=== PATIENT | female | born 1945 | race Caucasian/White ===

== ENCOUNTER 2017-10-07 18:41 | Inpatient (IN) | payer MEDICARE ==
[2017-10-07] MEDS ORDERED: SODIUM CHLORIDE 0.9% 500 ML IV SCH (21:15)
[2017-10-07] MEDS ORDERED: methylPREDNISolone SOD SUCCI 125 MG/2 ML VIAL IV STA (21:50)
[2017-10-07] MEDS ORDERED: PIPERACILLIN-TAZOBACTAM 3.375 GM in DEXTROSE/WATER 1 50ML.BAG IVPB STA (21:50)
--- NOTE | 2017-10-07 21:50 | ED ---
General Adult HPI - General Chief complaint: Skin/Abscess/Foreign Body Stated complaint: Rash Time Seen by Provider: 10/07/17 21:03 Source: patient, RN notes reviewed Mode of arrival: wheelchair Limitations: no limitations - History of Present Illness Initial comments: Patient is a pleasant 72-year-old female presenting to the emergency department with rash. Onset was around a month ago. Patient was weeding and questioned if she may have touched poison cece however patient is not very certain of this. Patient states she did go to an urgent care and her doctor and was diagnosed with poison cece. Patient did receive a steroid injection and then a dose of oral steroids. Steroids did improve symptoms and then daily have worsened since patient has been off the steroids. No visual change. Patient states she may have a mild sore throat. Rash is not painful. Patient states rash is leaking and there is an odor. Patient states when the rash weeks it is mostly clear however she believes her has been some pus and some bleeding. No history of similar symptoms previously. No fevers. - Related Data Home Medications Medication Instructions Recorded Confirmed Hydrochlorothiazide [Hydrodiuril] 25 mg PO DAILY 06/07/15 10/07/17 Levothyroxine Sodium [Synthroid] 88 mcg PO DAILY 06/07/15 10/07/17 Lisinopril 40 mg PO DAILY 06/07/15 10/07/17 Multivitamins, Thera [Multivitamin] 1 tab PO DAILY 06/07/15 10/07/17 Simvastatin [Zocor] 20 mg PO HS 06/07/15 10/07/17 Loratadine [Claritin] 10 mg PO DAILY 10/07/17 10/07/17 Allergies Allergy/AdvReac Type Severity Reaction Status Date / Time No Known Allergies Allergy Verified 10/07/17 21:48 Review of Systems ROS Statement: Those systems with pertinent positive or pertinent negative responses have been documented in the HPI. ROS Other: All systems not noted in ROS Statement are negative. Constitutional: Denies: fever Eyes: Denies: eye pain ENT: Denies: ear pain Respiratory: Denies: cough Cardiovascular: Denies: chest pain Endocrine: Denies: fatigue Gastrointestinal: Denies: abdominal pain Genitourinary: Denies: dysuria Musculoskeletal: Denies: back pain Skin: Reports: as per HPI, rash, lesions Neurological: Denies: weakness Past Medical History Past Medical History: Hyperlipidemia, Hypertension, Thyroid Disorder History of Any Multi-Drug Resistant Organisms: None Reported Past Surgical History: Tubal Ligation Past Anesthesia/Blood Transfusion Reactions: Motion Sickness, Postoperative Nausea & Vomiting (PONV) Past Psychological History: No Psychological Hx Reported Smoking Status: Never smoker Past Alcohol Use History: None Reported Past Drug Use History: None Reported - Past Family History Mother Family Medical History: Cancer General Exam Limitations: no limitations General appearance: alert, in no apparent distress Head exam: Present: atraumatic Eye exam: Present: normal appearance, PERRL. Absent: conjunctival injection ENT exam: Present: normal oropharynx Neck exam: Present: normal inspection Respiratory exam: Present: normal lung sounds bilaterally Cardiovascular Exam: Present: regular rate, normal rhythm GI/Abdominal exam: Present: soft. Absent: tenderness Extremities exam: Present: normal inspection Back exam: Absent: tenderness Neurological exam: Present: alert Psychiatric exam: Present: normal affect, normal mood Skin exam: Present: other (Patient does have an extensive diffuse rash mostly on the trunk and proximal extremities. There are multiple bullae, most are vesicular. Some are open. Some appear somewhat hemorrhagic. Odor is present. There is some large urticarial/target type lesions on the back. Majority of the trunk and proximal extremities are erythematous.) Course Vital Signs 10/07/17 10/07/17 10/07/17 19:10 22:59 23:23 Temperature 99.2 F 99.1 F Pulse Rate 80 76 77 Respiratory 20 18 18 Rate Blood Pressure 103/69 93/48 92/49 O2 Sat by Pulse 100 98 98 Oximetry 10/08/17 00:10 Temperature Pulse Rate 83 Respiratory 18 Rate Blood Pressure 94/51 O2 Sat by Pulse 100 Oximetry - Reevaluation(s) Reevaluation #1: 10/08/17 00:15 Patient reevaluated. Patient and family updated. Case was discussed in detail with Dr. Bonilla, who will admit for Dr. Bae. Consult will be placed for infectious disease and dermatology. EKG Findings - EKG Comments: EKG Findings:: Normal sinus rhythm 75. MA 132. QRS 90. QT 378. QTC 413. Normal axis. Normal QRS. No acute ST change. Medical Decision Making - Medical Decision Making Patient does have diffuse rash without evidence of mucous membrane involvement. Rash is pruritic. No pain. Differential diagnosis is large however at this point I do favor bullous pemphigus with overlying secondary infection. Patient will need to be admitted and infectious disease will be placed on consult. Patient and family are updated regarding this. - Lab Data Result diagrams: 10/07/17 22:20 10/07/17 22:20 Lab Results 10/07/17 10/07/17 10/07/17 Range/Units 22:13 22:20 22:20 WBC 10.0 (3.8-10.6) k/uL RBC 4.74 (3.80-5.40) m/uL Hgb 13.2 (11.4-16.0) gm/dL Hct 42.7 (34.0-46.0) % MCV 90.0 (80.0-100.0) fL MCH 27.9 (25.0-35.0) pg MCHC 31.0 (31.0-37.0) g/dL RDW 13.9 (11.5-15.5) % Plt Count 383 (150-450) k/uL Neutrophils % 55 % Lymphocytes % 10 % Monocytes % 6 % Eosinophils % 27 % Basophils % 1 % Neutrophils # 5.5 (1.3-7.7) k/uL Lymphocytes # 1.0 (1.0-4.8) k/uL Monocytes # 0.6 (0-1.0) k/uL Eosinophils # 2.7 H (0-0.7) k/uL Basophils # 0.1 (0-0.2) k/uL ESR 5 (0-20) mm/hr PT 10.6 (9.0-12.0) sec INR 1.1 (<1.2) APTT 22.6 (22.0-30.0) sec Sodium (137-145) mmol/L Potassium (3.5-5.1) mmol/L Chloride (98-107) mmol/L Carbon Dioxide (22-30) mmol/L Anion Gap mmol/L BUN (7-17) mg/dL Creatinine (0.52-1.04) mg/dL Est GFR (CKD-EPI)AfAm (>60 ml/min/1.73 sqM) Est GFR (CKD-EPI)NonAf (>60 ml/min/1.73 sqM) Glucose (74-99) mg/dL Plasma Lactic Acid Bart 1.2 (0.7-2.0) mmol/L Calcium (8.4-10.2) mg/dL Total Bilirubin (0.2-1.3) mg/dL AST (14-36) U/L ALT (9-52) U/L Alkaline Phosphatase (38-126) U/L C-Reactive Protein (<10.0) mg/L Total Protein (6.3-8.2) g/dL Albumin (3.5-5.0) g/dL 10/07/17 Range/Units 22:20 WBC (3.8-10.6) k/uL RBC (3.80-5.40) m/uL Hgb (11.4-16.0) gm/dL Hct (34.0-46.0) % MCV (80.0-100.0) fL MCH (25.0-35.0) pg MCHC (31.0-37.0) g/dL RDW (11.5-15.5) % Plt Count (150-450) k/uL Neutrophils % % Lymphocytes % % Monocytes % % Eosinophils % % Basophils % % Neutrophils # (1.3-7.7) k/uL Lymphocytes # (1.0-4.8) k/uL Monocytes # (0-1.0) k/uL Eosinophils # (0-0.7) k/uL Basophils # (0-0.2) k/uL ESR (0-20) mm/hr PT (9.0-12.0) sec INR (<1.2) APTT (22.0-30.0) sec Sodium 135 L (137-145) mmol/L Potassium 4.0 (3.5-5.1) mmol/L Chloride 102 (98-107) mmol/L Carbon Dioxide 25 (22-30) mmol/L Anion Gap 8 mmol/L BUN 42 H (7-17) mg/dL Creatinine 2.00 H (0.52-1.04) mg/dL Est GFR (CKD-EPI)AfAm 28 (>60 ml/min/1.73 sqM) Est GFR (CKD-EPI)NonAf 24 (>60 ml/min/1.73 sqM) Glucose 109 H (74-99) mg/dL Plasma Lactic Acid Bart (0.7-2.0) mmol/L Calcium 8.6 (8.4-10.2) mg/dL Total Bilirubin 0.4 (0.2-1.3) mg/dL AST 20 (14-36) U/L ALT 35 (9-52) U/L Alkaline Phosphatase 45 (38-126) U/L C-Reactive Protein 59.6 H (<10.0) mg/L Total Protein 5.3 L (6.3-8.2) g/dL Albumin 2.8 L (3.5-5.0) g/dL Disposition Clinical Impression: Cellulitis, Bullous pemphigus Disposition: ADMITTED IP TO THIS [facility] Referrals: Anne Bae III, MD [Primary Care Provider] - 1-2 days Decision Time: 00:16
[2017-10-07 22:33] LABS: Basophils # (A) 0.1 k/uL (0-0.2); Basophils % (A) 1 %; Eosinophils # (A) 2.7 k/uL (0-0.7); Eosinophils % (A) 27 %; HCT 42.7 % (34.0-46.0); HGB 13.2 gm/dL (11.4-16.0); Lymphocytes % (A) 10 %; MCH 27.9 pg (25.0-35.0); Mean Platelet Volume 6.6; Monocytes # (A) 0.6 k/uL (0-1.0); Monocytes % (A) 6 %; Neutrophils # (A) 5.5 k/uL (1.3-7.7); Neutrophils % (A) 55 %; Platelet Count 383 k/uL (150-450); RBC 4.74 m/uL (3.80-5.40); RDW 13.9 % (11.5-15.5)
[2017-10-07 22:39] LABS: INR 1.1 (<1.2); Partial Thromboplastin Time 22.6 sec (22.0-30.0); Prothrombin Time 10.6 sec (9.0-12.0)
[2017-10-07 22:47] LABS: Albumin 2.8 g/dL (3.5-5.0); C Reactive Protein 59.6 mg/L (<10.0); Calcium 8.6 mg/dL (8.4-10.2); Total Bilirubin 0.4 mg/dL (0.2-1.3); Total Protein 5.3 g/dL (6.3-8.2)
[2017-10-07 23:24] LABS: Erythrocyte Sedimentation Rate 5 mm/hr (0-20)
[2017-10-07] MEDS ORDERED: SODIUM CHLORIDE 0.9% 500 ML IV STA (23:28)
[2017-10-08] MEDS ORDERED: NALOXONE 0.4 MG/ML 1 ML VIAL IV PRN (00:16)
[2017-10-08] MEDS: SODIUM CHLORIDE 0.9% 1,000 ML IV SCH ×3 (00:40→15:46)
[2017-10-08] MEDS: methylPREDNISolone SOD SUCCI 125 MG/2 ML VIAL IV SCH ×2 (00:41→06:55)
[2017-10-08] MEDS ORDERED: SODIUM CHLORIDE 0.9% 1,000 ML IV STA (00:49)
[2017-10-08] MEDS ORDERED: PIPERACILLIN-TAZOBACTAM 3.375 GM in DEXTROSE/WATER 1 50ML.BAG IVPB SCH (08:00)
[2017-10-08] MEDS ORDERED: FAMOTIDINE 20 MG TAB PO SCH (09:00)
[2017-10-08] MEDS ORDERED: ceFAZolin 1,000 MG in DEXTROSE/WATER 1 50ML.BAG IVPB ONE (12:00)
--- NOTE | 2017-10-08 15:24 | P.HPIM ---
History of Present Illness 68-year-old up as an female came in with the diffuse rash involving chest abdomen bilateral upper limbs predominantly. Patient had diffuse areas of redness consistent with ALLERGIC reaction and some bullous lesions. Patient's symptoms started around August and believed to have patch poison cece and patient was treated accordingly with the systemic steroids by the urgent care physician and her redness and rash did improve but patient started having these bullous lesions because of which has skin started peeling of because of the pain patient is unable to go to the bathroom and patient came to ER. Patient has multiple areas of redness consistent with ALLERGIC reaction along with multiple areas of bullous lesions with some skin breakdown and some areas. Patient denied nausea vomiting diarrhea. Patient blood pressure is low patient is on lisinopril and the hydrochlorothiazide with worsening creatinine from her baseline of 0.8-2. Patient was started on IV fluids will be admitted will use ceftezole and although there is no clear-cut evidence of cellulitis at this point of time patient systemic steroids will be cut down to 20 mg by mouth daily. Dermatology was Will be consulted patient will need a biopsy. The main reason for admission is mostly acute renal failure. Infectious disease will be consulted as well Review of Systems REVIEW OF SYSTEMS: CONSTITUTIONAL: No fever, no malaise, no fatigue. HEENT: No recent visual problems or hearing problems. Denied any sore throat. CARDIOVASCULAR: No chest pain, orthopnea, PND, no palpitations, no syncope. PULMONARY: No shortness of breath, no cough, no hemoptysis. GASTROINTESTINAL: No diarrhea, no nausea, no vomiting, no abdominal pain. Normoactive bowel sounds. NEUROLOGICAL: No headaches, no weakness, no numbness. HEMATOLOGICAL: Denies any bleeding or petechiae. GENITOURINARY: Denies any burning micturition, frequency, or urgency. MUSCULOSKELETAL/RHEUMATOLOGICAL: Denies any joint pain, swelling, or any muscle pain. ENDOCRINE: Denies any polyuria or polydipsia. The rest of the 14-point review of systems is negative. Past Medical History Past Medical History: Hyperlipidemia, Hypertension, Thyroid Disorder Additional Past Medical History / Comment(s): Hypothyroid, diverticular disease , benign colon polyps, bilateral tinnitis, bilateral varicosities per pt. History of Any Multi-Drug Resistant Organisms: None Reported Past Surgical History: Section, Tubal Ligation Additional Past Surgical History / Comment(s): Colonoscopies/benign polypectomies. Past Anesthesia/Blood Transfusion Reactions: Motion Sickness, Postoperative Nausea & Vomiting (PONV) Smoking Status: Never smoker - Past Family History Mother Family Medical History: Cancer Additional Family Medical History / Comment(s): Mother had skin and esophageal cancer. She at the age of 86yrs. Father Additional Family Medical History / Comment(s): Father had bradycardia and of bradycardia/leg edema at the age of 84yrs. Medications and Allergies Home Medications Medication Instructions Recorded Confirmed Type Hydrochlorothiazide [Hydrodiuril] 25 mg PO DAILY 06/07/15 10/07/17 History Levothyroxine Sodium [Synthroid] 88 mcg PO DAILY 06/07/15 10/07/17 History Lisinopril 40 mg PO DAILY 06/07/15 10/07/17 History Multivitamins, Thera [Multivitamin] 1 tab PO DAILY 06/07/15 10/07/17 History Simvastatin [Zocor] 20 mg PO HS 06/07/15 10/07/17 History Loratadine [Claritin] 10 mg PO DAILY 10/07/17 10/07/17 History Allergies Allergy/AdvReac Type Severity Reaction Status Date / Time No Known Allergies Allergy Verified 10/07/17 21:48 Physical Exam Vitals: Vital Signs Temp Pulse Resp BP Pulse Ox 10/08/17 13:32 98.9 F 87 20 110/51 97 10/08/17 09:50 75 16 104/50 98 10/08/17 09:40 99.5 F 75 18 104/50 97 10/08/17 07:14 98.2 F 86 18 123/56 98 10/08/17 06:04 17 10/08/17 05:00 17 10/08/17 03:18 18 10/08/17 01:40 82 18 93/51 100 10/08/17 01:04 78 18 92/47 96 10/08/17 00:10 83 18 94/51 100 10/07/17 23:23 99.1 F 77 18 92/49 98 10/07/17 22:59 76 18 93/48 98 10/07/17 19:10 99.2 F 80 20 103/69 100 PHYSICAL EXAMINATION: GENERAL: The patient is alert and oriented x3, not in any acute distress. Well developed, well nourished. HEENT: Pupils are round and equally reacting to light. EOMI. No scleral icterus. No conjunctival pallor. Normocephalic, atraumatic. No pharyngeal erythema. No thyromegaly. CARDIOVASCULAR: S1 and S2 present. No murmurs, rubs, or gallops. PULMONARY: Chest is clear to auscultation, no wheezing or crackles. ABDOMEN: Soft, nontender, nondistended, normoactive bowel sounds. No palpable organomegaly. MUSCULOSKELETAL: No joint swelling or deformity. EXTREMITIES: No cyanosis, clubbing, or pedal edema. NEUROLOGICAL: Gross neurological examination did not reveal any focal deficits. SKIN: As mentioned above Results CBC & Chem 7: 10/07/17 22:20 10/07/17 22:20 Labs: Abnormal Lab Results - Last 24 Hours (Table) 10/07/17 10/07/17 Range/Units 22:20 22:20 Eosinophils # 2.7 H (0-0.7) k/uL Sodium 135 L (137-145) mmol/L BUN 42 H (7-17) mg/dL Creatinine 2.00 H (0.52-1.04) mg/dL Glucose 109 H (74-99) mg/dL C-Reactive Protein 59.6 H (<10.0) mg/L Total Protein 5.3 L (6.3-8.2) g/dL Albumin 2.8 L (3.5-5.0) g/dL Thrombosis Risk Factor Assmnt - Choose All That Apply Any of the Below Risk Factors Present?: Yes Each Factor Represents 1 point: Obesity (BMI >25), Varicose veins Other Risk Factors: No Other congenital or acquired thrombophilia - If yes, enter type in comment: No Thrombosis Risk Factor Assessment Total Risk Factor Score: 2 Thrombosis Risk Factor Assessment Level: Low Risk Assessment and Plan Plan: -Acute renal failure: Probably secondary to hypotension and antiemesis medications my suspicion is low that patient is dehydrated because of her skin breakdown and her bullous lesion breakdown patient was started on IV fluids to recheck the kidney function tomorrow. -Bullous lesions and redness: I do not believe patient has cellulitis patient appears to have either ALLERGIC reaction to poison cece and toxic epidermal neck lysis cannot be ruled out, bullous pemphigus cannot be ruled out either. Patient will be continued on systemic steroids prophylactically patient will be started on ceftezole and will get the opinion from dermatology and infectious disease as well. -Hyperlipidemia -Obesity -Hypertension: Patient is actually hypotensive as mentioned above -Hypothyroidism continue with levofloxacin
[2017-10-08] MEDS: ATORVASTATIN 10 MG TAB PO SCH (21:46)
[2017-10-08] MEDS: predniSONE 20 MG TAB PO SCH (21:46)
[2017-10-08] MEDS: ceFAZolin 500 MG in DEXTROSE/WATER 1 50ML.BAG IVPB SCH (22:55)
[2017-10-09] MEDS: SODIUM CHLORIDE 0.9% 1,000 ML IV SCH ×3 (03:20→17:47)
--- NOTE | 2017-10-09 08:12 | CONS ---
CONSULTATION DATE OF SERVICE: 10/08/2017. REASON FOR CONSULTATION: A bolus of skin lesion and cellulitis. HISTORY OF PRESENT ILLNESS: The patient is a 72-year-old female who has been dealing with skin rash been going on for a few weeks now. The patient says that it may have started after she was weeding in her backyard. Subsequently has been diagnosed with poison cece and has been treated in the outpatient setting with 2 different courses of steroids and the medication. However the patient continued to have a lesion mostly on the upper and lower abdomen as well as the arm with some superficial ulceration from of this bulla. The patient has been complaining of at times itching and as well as pain. The pain is more of a sharp in nature with intensity about 5 to 6/10, and no radiation. With these symptoms, the patient presented to the [facility] ER. The patient has been evaluated by the ER physician. She has been diagnosed with bullous condition with cellulitis. She was started on Cefazolin and admitted to the hospital. Infectious Disease was consulted for further recommendations regarding antibiotic therapy. The patient did not recall if she has started any new medication in the recent past. The patient denies having any new soaps or linens. The denies having any difficulty in breathing. No oral lesion. No urinary symptoms and no diarrhea. REVIEW OF SYSTEMS: Constitutional: Positive for weakness but no high-grade fever. Eyes: No complaint. ENT no complaint. Respiratory no complaint. Cardiovascular no complaint. Genitourinary no complaint. Gastrointestinal: No complaint. Musculoskeletal no complaint. INTEGUMENTARY: As per HPI. Psychological no complaint. Endocrine no complaint. Neurologic no complaint. PAST MEDICAL HISTORY: Hypertension, hyperlipidemia, hypothyroidism, diverticular disease and colon polyp, bilateral tinnitus. PAST SURGICAL HISTORY: History of and tubal ligation, colonoscopy, polypectomy. SOCIAL HISTORY: No history of smoking, drinking, or drug use. Mother with history of esophageal cancer. Father of bradyarrhythmia. ALLERGIES: No known drug allergies. MEDICATION: Currently include the patient is on Lipitor, cefazolin 2 g q.12h, Pepcid, levothyroxine, Narcan, prednisone. EXAMINATION: Blood pressure is 154/68 with a pulse of 89, temperature 97.4, she is 98% on room air. General description is an elderly female, lying in bed in no distress. No tachypnea or accessory muscles of respiration use. HEENT: Shows no pallor or scleral icterus. Oral mucosa membranes dry. No pharyngeal erythema or any or oral ulcers. Neck trachea central. No thyromegaly. LUNGS: Unlabored breathing. Clear to auscultation. No wheeze or crackles. Heart S1, S2. Regular rate and rhythm. ABDOMEN: Soft. No tenderness. No guarding or rigidity. Extremities: No edema of the feet. Skin examination: Multiple blisters and superficial ulcerations and surrounding cellulitis. No purulence. Neurological: The patient is awake, alert, oriented times three. Mood and affect normal. LABS: Hemoglobin 13.2, white count 10.0 with a BUN of 42, creatinine 2.0. CRP was 59.6. Blood cultures obtained currently pending. DIAGNOSTIC IMPRESSION AND PLAN: Patient with diffuse bullous skin lesion with some secondary redness with concern for possible poison cece. However, the diffuse nature of this lesion underlying primary skin condition such as bullous needs to be ruled out. The lack of fever or elevated white count, making underlying infection to be less likely but not entirely excluded. The patient with no history of any recent new medication or perfumes or lotions. PLAN: 1. Await Dermatology evaluation. The patient likely needs steroids in high doses and possible local care with . 2. Will continue with cefazolin 2 g q.8 hours to further condition to stabilize. 3. We will follow up on clinical condition and culture to further adjust medication if needed. Thank you for this consultation. Will follow this patient along with you. MMODL / IJN: [id number] /
[2017-10-09] MEDS: FAMOTIDINE 20 MG TAB PO SCH (08:25)
[2017-10-09] MEDS: LEVOTHYROXINE 88 MCG TAB PO SCH (08:25)
[2017-10-09] MEDS: predniSONE 20 MG TAB PO SCH (08:25)
[2017-10-09] MEDS: ceFAZolin 500 MG in DEXTROSE/WATER 1 50ML.BAG IVPB SCH ×2 (08:25→21:11)
[2017-10-09] MEDS ORDERED: diphenhydrAMINE 25 MG CAP PO PRN (10:14)
[2017-10-09] MEDS ORDERED: ACETAMINOPHEN TAB 325 MG TAB PO PRN (10:15)
[2017-10-09 11:56] LABS: Potassium 4.8 mmol/L (3.5-5.1)
[2017-10-09 12:52] LABS: Basophils % (A) 0 %; Eosinophils # (A) 0.9 k/uL (0-0.7); Eosinophils % (A) 11 %; HCT 40.7 % (34.0-46.0); HGB 13.2 gm/dL (11.4-16.0); Lymphocytes # (A) 0.7 k/uL (1.0-4.8); Lymphocytes % (A) 8 %; MCH 28.9 pg (25.0-35.0); MCHC 32.3 g/dL (31.0-37.0); MCV 89.3 fL (80.0-100.0); Mean Platelet Volume 8.4; Monocytes # (A) 0.7 k/uL (0-1.0); Monocytes % (A) 8 %; Neutrophils # (A) 6.3 k/uL (1.3-7.7); Neutrophils % (A) 72 %; Platelet Count 291 k/uL (150-450); RBC 4.56 m/uL (3.80-5.40); RDW 14.2 % (11.5-15.5); WBC 8.8 k/uL (3.8-10.6)
--- NOTE | 2017-10-09 20:06 | CONS ---
CONSULTATION DATE OF CONSULTATION: 10/09/2017 REASON FOR CONSULTATION: Blistering rash and secondary cellulitis. HISTORY OF PRESENT ILLNESS: The patient is a 72-year-old female who is being evaluated for a skin rash that started about 3 weeks ago after she was working out in the yard. She attributes the rash to poison cece. She states she went to the Urgent Care, where she was treated with an oral prednisone taper starting at 60 mg, and a steroid injection. She states initially the rash improved after treatment, and then it got much worse. She said after the rash got worse she could not stand it, so she came into the hospital for treatment. She was treated with IV antibiotics and IV steroids and states the rash is feeling better. She is currently on prednisone 20 mg twice daily. REVIEW OF SYSTEMS: INTEGUMENTARY: See HPI. All others noncontributory. PAST MEDICAL HISTORY: 1. Hypertension. 2. Hyperlipidemia. 3. Hypothyroid. 4. Diverticular disease. 5. Tinnitus. PAST SURGICAL HISTORY: 1. . 2. Tubal ligation. 3. Colonoscopy. SOCIAL HISTORY: Denies smoking. Denies alcohol use. Denies illicit drug use. ALLERGIES: NO KNOWN DRUG ALLERGIES. MEDICATIONS: See MAR. PHYSICAL EXAMINATION: Patient is currently in no distress. She is oriented to person, place and time. SKIN: Erythematous patches and bullae located on the trunk and extremities. LABS: Blood culture negative after 24 hours. IMPRESSION: Bullous Pemphigoid versus Pemphigus Vulgaris versus Erythema Multiforme versus Contact Dermatitis. PLAN: 1. Start prednisone taper 80 mg p.o. for 5 days, then 60 mg p.o. for 7 days, then 50 mg p.o. for 7 days, then 40 mg p.o. for 7 days, then 30 mg p.o. for 7 days, then 20 mg p.o. for 7 days, then 10 mg p.o. for 7 days. 2. Start betamethasone dipropionate topical ointment. Apply to affected areas on trunk and extremities twice daily. 3. Order labs: BP230 and 180, Desmoglein 1 and 3. 4. Follow up after discharge at [facility]. Thank you very much for the consultation. MMODL / IJN: [id number] / ALIREZA
[2017-10-09] MEDS: BETAMETHASONE DIPROPIONATE 0.05% OINTMENT 45 GM TUBE TOPICAL SCH (21:10)
[2017-10-09] MEDS: ATORVASTATIN 10 MG TAB PO SCH (21:11)
--- NOTE | 2017-10-09 23:12 | PN ---
PROGRESS NOTE DATE OF SERVICE: 10/09/2017. REASON FOR FOLLOWUP: Skin rash with secondary cellulitis. INTERVAL HISTORY: The patient is currently afebrile and she is breathing comfortably. Slight decrease in her pain associated with the rash area. No chest pain. No shortness of breath or cough. No abdominal pain or any diarrhea. EXAMINATION: Blood pressure 168/72 with a pulse of 74, temperature 97.5. She is 100% on room air. General description is an elderly female lying in bed in no distress. Respiratory System: Unlabored breathing. Clear to auscultation anteriorly. HEART: S1, S2. Regular rate and rhythm. ABDOMEN: Soft. No tenderness. SKIN: No rash with bullae present. Redness may have slightly decreased on the trunk. LABS: Hemoglobin is 13, white count of 8.8. BUN of 25, creatinine 0.94. DIAGNOSTIC IMPRESSION AND PLAN: Patient with bullous , concern for possible bullous pemphigoid or with possible secondary cellulitis. In view of improvement in her creatinine clearance, we will adjust the cefazolin to 2 g every 8 hours. She has been seen by Dermatology and has been started on steroids. We will continue to monitor the patient closely. Continue with supportive care. MMODL / IJN: [id number] /
[2017-10-10] MEDS ORDERED: ceFAZolin 2,000 MG in DEXTROSE/WATER 1 50ML.BAG IVPB SCH
[2017-10-10] MEDS: ceFAZolin IN SWFI 2 GM/20 ML SYRINGE IVP SCH ×2 (00:21→08:17)
[2017-10-10] MEDS: SODIUM CHLORIDE 0.9% 1,000 ML IV SCH ×2 (05:38→12:49)
[2017-10-10] MEDS: LEVOTHYROXINE 88 MCG TAB PO SCH (08:17)
[2017-10-10] MEDS: FAMOTIDINE 20 MG TAB PO SCH (08:17)
[2017-10-10 08:42] LABS: Potassium 4.5 mmol/L (3.5-5.1)
[2017-10-10] MEDS ORDERED: predniSONE 20 MG TAB PO SCH (09:00)
[2017-10-10] MEDS: BETAMETHASONE DIPROPIONATE 0.05% OINTMENT 45 GM TUBE TOPICAL SCH (12:56)
[2017-10-10 16:36] VITALS: BP 182/75; PULSE 83; RESP 18; TEMP 96.8
--- NOTE | 2017-10-10 17:10 | PN ---
PROGRESS NOTE DATE OF SERVICE: 10/10/2017. REASON FOR FOLLOW UP: Multiple skin ulcerations with possible secondary cellulitis. INTERVAL HISTORY: The patient is currently afebrile. She is breathing comfortably. Denies any chest pain or any cough. No abdominal pain. The skin has slightly decreased in intensity and less painful. EXAMINATION: Blood pressure 149/76, pulse of 86. Temperature is 97.1. She is 99% on room air. General description is an elderly female, lying in bed in no distress. RESPIRATORY SYSTEM: Unlabored breathing. Clear to auscultation anteriorly. HEART: S1, S2. Regular rate and rhythm. ABDOMEN: Soft, no tenderness. SKIN EXAMINATION: Multiple skin ulcerations. Redness has decreased. No purulence. LABS: White count 8.2, BUN of 20, creatinine 0.85. DIAGNOSTIC IMPRESSION AND PLAN: Patient with multiple skin blisters, concern for possibly . She was started on steroids per Dermatology and will benefit from a biopsy in outpatient setting. For cellulitis she can be transitioned to oral Keflex on discharge. Continue supportive care. MMODL / IJN: [id number] /
--- NOTE | 2017-10-10 18:32 | P.DS ---
Providers Date of admission: 10/08/17 00:16 Expected date of discharge: 10/10/17 Attending physician: Mimi Rossi Consults: 10/08/17 00:17 Consult Physician Urgent Consulting Provider: Robert More Consult Reason/Comments: Bolus disease with secondary cellulitis versus other Do you want consulting provider notified?: Yes Consult Physician Urgent Consulting Provider: Jim Moran Consult Reason/Comments: Bolus disease with secondary cellulitis Do you want consulting provider notified?: Yes Primary care physician: Anne Bond [facility] Course: Final Diagnoses: -Acute renal failure: Probably secondary to hypotension and antiemesis medications my suspicion is low that patient is dehydrated. Improved -Bullous lesions and redness: Possible cellulitis, patient appears to have either ALLERGIC reaction to poison cece and toxic epidermal neck lysis cannot be ruled out, bullous pemphigus cannot be ruled out either. -Hyperlipidemia -Obesity -Hypertension -Hypothyroidism Hospital course:68-year-old up as an female came in with the diffuse rash involving chest abdomen bilateral upper limbs predominantly. Patient had diffuse areas of redness consistent with ALLERGIC reaction and some bullous lesions. Patient's symptoms started around August and believed to have patch poison cece and patient was treated accordingly with the systemic steroids by the urgent care physician and her redness and rash did improve but patient started having these bullous lesions because of which has skin started peeling of because of the pain patient is unable to go to the bathroom and patient came to ER. Patient has multiple areas of redness consistent with ALLERGIC reaction along with multiple areas of bullous lesions with some skin breakdown and some areas. Patient denied nausea vomiting diarrhea. Patient blood pressure is low patient is on lisinopril and the hydrochlorothiazide with worsening creatinine from her baseline of 0.8-2. Patient was started on IV fluids will be admitted will use ceftezole and although there is no clear-cut evidence of cellulitis at this point of time patient systemic steroids will be cut down to 20 mg by mouth daily. Dermatology was Will be consulted patient will need a biopsy. The main reason for admission is mostly acute renal failure. Infectious disease will be consulted as well Evaluated by both infectious disease and dermatology. Maintained on steroids , IV antibiotics, IV fluid. Significant clinical improvement. Patient has been cleared for discharge by consults. Patient is being discharged home in a stable condition with guarded prognosis. Outpatient biopsy with Dermatology. GENERAL: The patient is alert and oriented x3, not in any acute distress. CARDIOVASCULAR: S1 and S2 present. No murmurs, rubs, or gallops. PULMONARY: Chest is clear to auscultation, no wheezing or crackles. ABDOMEN: Soft, nontender, nondistended, normoactive bowel sounds. No palpable organomegaly. EXTREMITIES: No cyanosis, clubbing, or pedal edema. NEUROLOGICAL: Gross neurological examination did not reveal any focal deficits. SKIN: As mentioned above, significantly improved The impression and plan of care has been dictated as directed. : I performed a history and examination of this patient, discussed the same with the dictator. I agree with the dictator's note ,documented as a scribe. Any additional findings or plans will be noted. Time taken: 35 minutes Patient Condition at Discharge: Stable Plan - Discharge Summary Discharge Rx Participant: No New Discharge Prescriptions: New Cephalexin [Keflex] 500 mg PO TID #21 cap Acetaminophen Tab [Tylenol] 650 mg PO Q6HR PRN tab PRN Reason: Fever and/ or Mild Pain Famotidine [Pepcid] 20 mg PO DAILY tab Betamethasone Dipropionate [Diprolene 0.05% Ointment] 1 applic TOPICAL BID # 2 tube Continue Multivitamins, Thera [Multivitamin (formulary)] 1 tab PO DAILY Simvastatin [Zocor] 20 mg PO HS Lisinopril 40 mg PO DAILY Hydrochlorothiazide [Hydrodiuril] 25 mg PO DAILY Levothyroxine Sodium [Synthroid] 88 mcg PO DAILY Loratadine [Claritin] 10 mg PO DAILY diphenhydrAMINE [Benadryl] 50 mg PO HS Ibuprofen 200 mg PO BID PRN PRN Reason: Pain Discharge Medication List Hydrochlorothiazide [Hydrodiuril] 25 mg PO DAILY 06/07/15 [History] Levothyroxine Sodium [Synthroid] 88 mcg PO DAILY 06/07/15 [History] Lisinopril 40 mg PO DAILY 06/07/15 [History] Multivitamins, Thera [Multivitamin (formulary)] 1 tab PO DAILY 06/07/15 [History ] Simvastatin [Zocor] 20 mg PO HS 06/07/15 [History] Loratadine [Claritin] 10 mg PO DAILY 10/07/17 [History] Ibuprofen 200 mg PO BID PRN 10/09/17 [History] diphenhydrAMINE [Benadryl] 50 mg PO HS 10/09/17 [History] Acetaminophen Tab [Tylenol] 650 mg PO Q6HR PRN tab 10/10/17 [Rx] Betamethasone Dipropionate [Diprolene 0.05% Ointment] 1 applic TOPICAL BID #2 tube 10/10/17 [Rx] Cephalexin [Keflex] 500 mg PO TID #21 cap 10/10/17 [Rx] Famotidine [Pepcid] 20 mg PO DAILY tab 10/10/17 [Rx] Follow up Appointment(s)/Referral(s): Araceli More MD [STAFF PHYSICIAN] - 1 Week Anne Bae III, MD [Primary Care Provider] - 10/14/17 5:30 pm Jim Moran MD [STAFF PHYSICIAN] - 1 Week Patient Instructions/Handouts: Cellulitis (DC) Activity/Diet/Wound Care/Special Instructions: manual prescription for prednisone taper: 80 mg by mouth daily 5 days, then 60 mg by mouth daily 7 days then 50 mg by mouth daily 7 days then 40 mg by mouth daily 7 days then 30 mg by mouth daily 7 days then 20 mg by mouth daily 7 days then 10 mg by mouth daily 7 days then DC Discharge Disposition: HOME SELF-CARE
[2017-10-14 16:50] LABS: Desmoglein 1 0.96 U (<14.0); Desmoglein 3 0.83 U (<9.0)
== END 2017-10-10 18:08 | disposition home or self-care (01) | DRG 683 ==
LOC: EC 18:41 → 4MS4W 10-08 00:16
PROVIDERS: ADMIT Hospitalist; ATTEND Hospitalist
DX: N17.9 Acute kidney failure, unspecified (principal); L10.9 Pemphigus, unspecified; L27.0 Generalized skin eruption due to drugs and medicaments taken internally; T45.0X5A Adverse effect of antiallergic and antiemetic drugs, initial encounter; I95.9 Hypotension, unspecified; E86.0 Dehydration; Z80.0 Family history of malignant neoplasm of digestive organs; E78.5 Hyperlipidemia, unspecified; I10 Essential (primary) hypertension; E03.9 Hypothyroidism, unspecified; K57.90 Diverticulosis of intestine, part unspecified, without perforation or abscess without bleeding; H93.19 Tinnitus, unspecified ear; Z79.84 Long term (current) use of oral hypoglycemic drugs; Z79.890 Hormone replacement therapy; Z79.899 Other long term (current) drug therapy; Z79.52 Long term (current) use of systemic steroids; Z86.010 Personal history of colon polyps; E66.9 Obesity, unspecified; Z68.25 Body mass index [BMI] 25.0-25.9, adult
CPT/HCPCS: 36415; 80048; 80053; 83516; 83605; 85025; 85610; 85652; 85730; 86140; 87040; 93005; 96361; 96365; 96366; 96367; 96375; 96376; 99284

== ENCOUNTER → 2019-10-02 | Outpatient (CLI) | payer MEDICARE ==
--- NOTE | 2019-10-05 09:01 | CT ---
EXAMINATION TYPE: CT angio neck DATE OF EXAM: 10/02/2019 HISTORY: Carotid stenosis. COMPARISON: NONE CT DLP: 290.5 mGycm. Automated Exposure Control for Dose Reduction was Utilized. TECHNIQUE: CTA scan of the neck is performed without and with IV Contrast, patient injected with 65m l mL of Isovue 370, axial images are obtained, coronal and sagittal reformatted images are reviewed. Three-D reconstructed images are created on an independent workstation and reviewed. FINDINGS: Carotid/Vascular Structures: Bovine type arch which is normal variant. Right common carotid artery sh ows normal origin from right brachiocephalic artery. Some tortuous course to the right common carotid artery without significant plaque or stenosis. Mild to moderate calcified plaque in right carotid bu lb extends into proximal internal carotid artery without significant stenosis. External carotid arter y patent without significant stenosis. Left common carotid artery shows tortuous course without significant plaque or stenosis. There is mod erate to severe mixed plaque in left carotid bulb becoming more severe predominantly noncalcified joseline que in the proximal internal carotid artery over a roughly 1.5 cm segment. Significant stenosis is pr esent. Lumen diameter is narrowed to 1.6 mm and reconstitutes to 7.3 mm superior to this. There is pa tent external carotid artery without significant plaque or stenosis. Mild to moderate calcified plaque supraclinoid segment bilateral distal internal carotid arteries wit hout significant stenosis. Dominant right vertebral artery. Vertebral arteries are patent to the basi lar junction. Other: There are a few scattered prominent but subcentimeter lymph nodes throughout the neck bilatera lly. No definitive greater than 1 cm neck adenopathy. Somewhat smaller hypoplastic thyroid gland noted axial image 35. Correlate clinically. Slight levoconvex scoliotic curvature positioning centered near cervicothoracic junction. Spine is st raightened on sagittal images. Moderate multilevel spurring and disc space narrowing greatest C5-C6 a nd C6-C7 levels. IMPRESSION: Confirmation of fairly significant long segment (1.5 cm) stenosis proximal left internal carotid artery due to prominent predominantly noncalcified plaque, degree of stenosis is measured jus t under 80%.
== END | disposition home or self-care (01) ==
LOC: RADCTMAIN 15:03
PROVIDERS: ATTEND Surgery
DX: I65.22 Occlusion and stenosis of left carotid artery (principal)
CPT/HCPCS: 82565; 84520; 70498; 36415; Q9967

== ENCOUNTER 2020-05-27 14:17 | Observation (INO) | payer MEDICARE ==
[2020-05-27 15:40] LABS: Basophils % (A) 1 %; Eosinophils % (A) 0 %; HCT 40.3 % (34.0-46.0); HGB 13.7 gm/dL (11.4-16.0); Lymphocytes # (A) 0.4 k/uL (1.0-4.8); Lymphocytes % (A) 9 %; MCH 29.6 pg (25.0-35.0); MCHC 34.1 g/dL (31.0-37.0); MCV 86.6 fL (80.0-100.0); Mean Platelet Volume 7.3; Monocytes # (A) 0.4 k/uL (0-1.0); Monocytes % (A) 9 %; Neutrophils # (A) 3.9 k/uL (1.3-7.7); Neutrophils % (A) 80 %; Platelet Count 381 k/uL (150-450); RBC 4.65 m/uL (3.80-5.40); RDW 13.1 % (11.5-15.5); WBC 4.9 k/uL (3.8-10.6)
[2020-05-27 15:49] LABS: Albumin 3.8 g/dL (3.5-5.0); Calcium 9.1 mg/dL (8.4-10.2); Magnesium 1.8 mg/dL (1.6-2.3); Potassium 4.1 mmol/L (3.5-5.1); Total Bilirubin 0.6 mg/dL (0.2-1.3); Total Protein 6.8 g/dL (6.3-8.2)
[2020-05-27 15:55] LABS: Partial Thromboplastin Time 24.1 sec (22.0-30.0); Prothrombin Time 10.8 sec (9.0-12.0)
--- NOTE | 2020-05-27 15:59 | XR ---
EXAMINATION TYPE: XR chest 2V DATE OF EXAM: 05/27/2020 COMPARISON: NONE TECHNIQUE: PA and lateral views submitted. HISTORY: Weakness FINDINGS: Coarsened interstitium with a basilar subsegmental consolidation. Heart enlarged. No pneumothorax. At herosclerotic change aorta. Tiny pleural effusions not excluded. IMPRESSION: 1. Correlate for interstitial pneumonitis versus mild venous congestion. 2. Cardiomegaly
[2020-05-27] MEDS ORDERED: SODIUM CHLORIDE 0.9% 1,000 ML IV STA (16:57)
--- NOTE | 2020-05-27 17:03 | ED ---
Weakness HPI - General Chief complaint: Weakness Stated complaint: dizziness,weakness,loss of appetite. Time Seen by Provider: 05/27/20 14:54 Source: patient Mode of arrival: wheelchair Limitations: no limitations - History of Present Illness Initial comments: Patient complains of generalized weakness and lethargy. Her symptoms have been getting worse for couple weeks. Nothing makes this better or worse. She has taken no medicines for this. She was switched to a new blood pressure medication 3 weeks ago, which seems to of precipitated her decline. She has no pain or swelling in the arms or legs. She has no palpitations. She has had no loss of conscious. She has no headache. She has no vision or hearing changes. She denies sick contacts. She has not traveled anywhere. - Related Data Home Medications Medication Instructions Recorded Confirmed Levothyroxine Sodium [Synthroid] 88 mcg PO DAILY 06/07/15 05/27/20 Simvastatin [Zocor] 20 mg PO HS 06/07/15 05/27/20 lisinopriL 40 mg PO DAILY 06/07/15 05/27/20 Biotin 10,000 mcg PO DAILY 05/27/20 05/27/20 Doxycycline Hyclate 100 mg PO BID 05/27/20 05/27/20 Hydrochlorothiazide 12.5 mg PO DAILY 05/27/20 05/27/20 [hydroCHLOROthiazide] Niacinamide 500 mg PO DAILY 05/27/20 05/27/20 Previous Rx's Medication Instructions Recorded Acetaminophen Tab [Tylenol] 650 mg PO Q6HR PRN tab 10/10/17 Allergies Allergy/AdvReac Type Severity Reaction Status Date / Time No Known Allergies Allergy Verified 05/27/20 16:50 Review of Systems ROS Statement: Those systems with pertinent positive or pertinent negative responses have been documented in the HPI. ROS Other: All systems not noted in ROS Statement are negative. Past Medical History Past Medical History: Hyperlipidemia, Hypertension, Thyroid Disorder Additional Past Medical History / Comment(s): Hypothyroid, diverticular disease, benign colon polyps, bilateral tinnitis, bilateral varicosities per pt. History of Any Multi-Drug Resistant Organisms: None Reported Past Surgical History: Section, Tubal Ligation Additional Past Surgical History / Comment(s): Colonoscopies/benign polypectomies. Past Anesthesia/Blood Transfusion Reactions: Motion Sickness, Postoperative Nausea & Vomiting (PONV) Past Psychological History: No Psychological Hx Reported Smoking Status: Never smoker Past Alcohol Use History: None Reported Past Drug Use History: None Reported - Past Family History Mother Family Medical History: Cancer Additional Family Medical History / Comment(s): Mother had skin and esophageal cancer. She at the age of 86yrs. Father Additional Family Medical History / Comment(s): Father had bradycardia and of bradycardia/leg edema at the age of 84yrs. General Exam Limitations: no limitations General appearance: alert, in no apparent distress Head exam: Present: atraumatic, normocephalic, normal inspection Eye exam: Present: normal appearance, PERRL, EOMI. Absent: scleral icterus, conjunctival injection, periorbital swelling ENT exam: Present: normal exam, mucous membranes moist Neck exam: Present: normal inspection. Absent: tenderness, meningismus, lymphadenopathy Respiratory exam: Present: normal lung sounds bilaterally. Absent: respiratory distress, wheezes, rales, rhonchi, stridor Cardiovascular Exam: Present: regular rate, normal rhythm, normal heart sounds. Absent: systolic murmur, diastolic murmur, rubs, gallop, clicks GI/Abdominal exam: Present: soft, normal bowel sounds. Absent: distended, tenderness, guarding, rebound, rigid Extremities exam: Present: normal inspection, full ROM, normal capillary refill. Absent: tenderness, pedal edema, joint swelling, calf tenderness Back exam: Present: normal inspection Neurological exam: Present: alert, oriented X3, CN II-XII intact Psychiatric exam: Present: normal affect, normal mood Skin exam: Present: warm, dry, intact, normal color. Absent: rash Course Vital Signs 05/27/20 05/27/20 14:44 16:00 Temperature 97.6 F Pulse Rate 66 60 Respiratory 20 16 Rate Blood Pressure 74/45 111/56 O2 Sat by Pulse 96 97 Oximetry EKG Findings - EKG Comments: EKG Findings:: twelve-lead EKG shows ventricular rate 64 bpm, normal SC interval and Jaya complexes, no ST elevation or depression, interpreted by me as normal sinus rhythm. Medical Decision Making - Medical Decision Making Patient presents with lethargy. Her sodium is very low. She has acute kidney injury. I gave her IV fluids. She will be admitted to the hospital. - Lab Data Result diagrams: 05/27/20 15:20 05/27/20 15:20 Lab Results 05/27/20 05/27/20 05/27/20 Range/Units 15:20 15:20 15:20 WBC 4.9 (3.8-10.6) k/uL RBC 4.65 (3.80-5.40) m/uL Hgb 13.7 (11.4-16.0) gm/dL Hct 40.3 (34.0-46.0) % MCV 86.6 (80.0-100.0) fL MCH 29.6 (25.0-35.0) pg MCHC 34.1 (31.0-37.0) g/dL RDW 13.1 (11.5-15.5) % Plt Count 381 (150-450) k/uL MPV 7.3 Neutrophils % 80 % Lymphocytes % 9 % Monocytes % 9 % Eosinophils % 0 % Basophils % 1 % Neutrophils # 3.9 (1.3-7.7) k/uL Lymphocytes # 0.4 L (1.0-4.8) k/uL Monocytes # 0.4 (0-1.0) k/uL Eosinophils # 0.0 (0-0.7) k/uL Basophils # 0.0 (0-0.2) k/uL PT 10.8 (9.0-12.0) sec INR 1.0 (<1.2) APTT 24.1 (22.0-30.0) sec Sodium 127 L (137-145) mmol/L Potassium 4.1 (3.5-5.1) mmol/L Chloride 94 L (98-107) mmol/L Carbon Dioxide 26 (22-30) mmol/L Anion Gap 7 mmol/L BUN 22 H (7-17) mg/dL Creatinine 1.33 H (0.52-1.04) mg/dL Est GFR (CKD-EPI)AfAm 44 (>60 ml/min/1.73 sqM) Est GFR (CKD-EPI)NonAf 39 (>60 ml/min/1.73 sqM) Glucose 155 H (74-99) mg/dL Plasma Lactic Acid Bart (0.7-2.0) mmol/L Calcium 9.1 (8.4-10.2) mg/dL Magnesium 1.8 (1.6-2.3) mg/dL Total Bilirubin 0.6 (0.2-1.3) mg/dL AST 46 H (14-36) U/L ALT 19 (4-34) U/L Alkaline Phosphatase 70 (38-126) U/L Troponin I (0.000-0.034) ng/mL Total Protein 6.8 (6.3-8.2) g/dL Albumin 3.8 (3.5-5.0) g/dL 05/27/20 05/27/20 Range/Units 15:20 15:20 WBC (3.8-10.6) k/uL RBC (3.80-5.40) m/uL Hgb (11.4-16.0) gm/dL Hct (34.0-46.0) % MCV (80.0-100.0) fL MCH (25.0-35.0) pg MCHC (31.0-37.0) g/dL RDW (11.5-15.5) % Plt Count (150-450) k/uL MPV Neutrophils % % Lymphocytes % % Monocytes % % Eosinophils % % Basophils % % Neutrophils # (1.3-7.7) k/uL Lymphocytes # (1.0-4.8) k/uL Monocytes # (0-1.0) k/uL Eosinophils # (0-0.7) k/uL Basophils # (0-0.2) k/uL PT (9.0-12.0) sec INR (<1.2) APTT (22.0-30.0) sec Sodium (137-145) mmol/L Potassium (3.5-5.1) mmol/L Chloride (98-107) mmol/L Carbon Dioxide (22-30) mmol/L Anion Gap mmol/L BUN (7-17) mg/dL Creatinine (0.52-1.04) mg/dL Est GFR (CKD-EPI)AfAm (>60 ml/min/1.73 sqM) Est GFR (CKD-EPI)NonAf (>60 ml/min/1.73 sqM) Glucose (74-99) mg/dL Plasma Lactic Acid Bart 1.7 (0.7-2.0) mmol/L Calcium (8.4-10.2) mg/dL Magnesium (1.6-2.3) mg/dL Total Bilirubin (0.2-1.3) mg/dL AST (14-36) U/L ALT (4-34) U/L Alkaline Phosphatase (38-126) U/L Troponin I <0.012 (0.000-0.034) ng/mL Total Protein (6.3-8.2) g/dL Albumin (3.5-5.0) g/dL Disposition Clinical Impression: ROSA (acute kidney injury), Hyponatremia Disposition: ADMITTED IP TO THIS HOSP Condition: Fair Is patient prescribed a controlled substance at d/c from ED?: No Referrals: Anne Bae III, MD [Primary Care Provider] - 1-2 days
[2020-05-27] MEDS ORDERED: NALOXONE 0.4 MG/ML 1 ML VIAL IV PRN (17:05)
[2020-05-27] MEDS ORDERED: SODIUM CHLORIDE 0.9% 1,000 ML IV ONE (17:05)
[2020-05-27] MEDS ORDERED: ONDANSETRON ODT 4 MG TAB PO STA (17:35)
[2020-05-27 20:35] LABS: T4, Free (Free Thyroxine) 1.41 ng/dL (0.78-2.19)
[2020-05-27] MEDS: ATORVASTATIN 10 MG TAB PO SCH (22:05)
[2020-05-28] MEDS: LEVOTHYROXINE 88 MCG TAB PO SCH (06:13)
[2020-05-28] MEDS ORDERED: NON FORMULARY DRUG (Niacinamide [Niacinamide] 500 MG Tablet) PO SCH (09:00)
[2020-05-28] MEDS ORDERED: lisinopriL 20 MG TAB PO SCH (09:00)
[2020-05-28] MEDS ORDERED: BIOTIN 10000 MCG PO SCH (09:00)
[2020-05-28] MEDS ORDERED: ALBUTEROL HFA INHALER INHALATION PRN (13:24)
[2020-05-28] MEDS ORDERED: guaiFENesin-DM 100-10MG/5ML 10 ML CUP PO PRN (13:24)
[2020-05-28] MEDS: ZINC SULFATE 220 MG CAP PO SCH (14:54)
[2020-05-28] MEDS: SODIUM CHLORIDE 0.9% 1,000 ML IV SCH ×2 (14:54→23:44)
[2020-05-28] MEDS: ASCORBIC ACID 500 MG TAB PO SCH ×2 (14:54→21:20)
--- NOTE | 2020-05-28 15:03 | P.HPIM ---
History of Present Illness Patient given, as of generalized weakness and lethargy found to be hyponatremic and elevated a serum creatinine 1.3 patient appears to be in acute renal failure patient is hypotensive as a elevated TSH with normal T4. Patient denied any fever chills patient has been having cough for about 3 weeks. Patient is found to have positive Covid 19. 6 considering the duration of symptoms patient will not be a candidate for Monocryl antibody. Patient will be started on fluids patient will be admitted with repeat basic metabolic profile again tomorrow patient's the FELIX inhibitor and hydrochlorothiazide will be held. Patient was being treated for bronchitis as an outpatient with the doxycycline. Chest x-ray did show some interstitial prominence consistent with Covid 19 pneumonia Review of Systems REVIEW OF SYSTEMS: CONSTITUTIONAL: As mentioned in HPI HEENT: No recent visual problems or hearing problems. Denied any sore throat. CARDIOVASCULAR: No chest pain, orthopnea, PND, no palpitations, no syncope. PULMONARY: No shortness of breath, no cough, no hemoptysis. GASTROINTESTINAL: As mentioned in HPI NEUROLOGICAL: No headaches, no weakness, no numbness. HEMATOLOGICAL: Denies any bleeding or petechiae. GENITOURINARY: Denies any burning micturition, frequency, or urgency. MUSCULOSKELETAL/RHEUMATOLOGICAL: Denies any joint pain, swelling, or any muscle pain. ENDOCRINE: Denies any polyuria or polydipsia. The rest of the 14-point review of systems is negative. Past Medical History Past Medical History: Hyperlipidemia, Hypertension, Thyroid Disorder Additional Past Medical History / Comment(s): Hypothyroid, diverticular disease, benign colon polyps, bilateral tinnitis, bilateral varicosities per pt. History of Any Multi-Drug Resistant Organisms: None Reported Past Surgical History: Section, Tubal Ligation Additional Past Surgical History / Comment(s): Colonoscopies/benign polypectomies. Past Anesthesia/Blood Transfusion Reactions: Motion Sickness, Postoperative Nausea & Vomiting (PONV) Past Psychological History: No Psychological Hx Reported Smoking Status: Never smoker Past Alcohol Use History: None Reported Additional Past Alcohol Use History / Comment(s): Pt resides alone. She uses no assistive devices. She drives. Past Drug Use History: None Reported - Past Family History Mother Family Medical History: Cancer Additional Family Medical History / Comment(s): Mother had skin and esophageal cancer. She at the age of 86yrs. Father Additional Family Medical History / Comment(s): Father had bradycardia and of bradycardia/leg edema at the age of 84yrs. Medications and Allergies Home Medications Medication Instructions Recorded Confirmed Type Levothyroxine Sodium [Synthroid] 88 mcg PO DAILY 06/07/15 05/27/20 History Simvastatin [Zocor] 20 mg PO HS 06/07/15 05/27/20 History lisinopriL 40 mg PO DAILY 06/07/15 05/27/20 History Acetaminophen Tab [Tylenol] 650 mg PO Q6HR PRN tab 10/10/17 05/27/20 Rx Biotin 10,000 mcg PO DAILY 05/27/20 05/27/20 History Doxycycline Hyclate 100 mg PO BID 05/27/20 05/27/20 History Hydrochlorothiazide 12.5 mg PO DAILY 05/27/20 05/27/20 History [hydroCHLOROthiazide] Niacinamide 500 mg PO DAILY 05/27/20 05/27/20 History Allergies Allergy/AdvReac Type Severity Reaction Status Date / Time No Known Allergies Allergy Verified 05/27/20 16:50 Physical Exam Vitals: Vital Signs Temp Pulse Pulse Resp BP BP Pulse Ox 05/28/20 11:40 99.2 F 70 18 91/58 94 L 05/28/20 06:32 98.4 F 73 19 116/71 93 L 05/28/20 02:29 99.4 F 80 18 138/61 93 L 05/27/20 22:30 24 05/27/20 21:47 98.5 F 71 18 125/67 92 L 05/27/20 21:01 76 18 107/76 05/27/20 17:00 62 16 103/48 96 05/27/20 16:00 60 16 111/56 97 Intake and Output 05/27/20 05/28/20 05/28/20 22:59 06:59 14:59 Intake Total 460 Balance 460 Intake: Intake, IV Titration 400 Amount Sodium Chloride 0.9% 1, 400 000 ml @ 100 mls/hr IV . Q10H ONE Rx#:[id number] Oral 60 Other: Voiding Method Diaper # Voids 2 Weight 77.111 kg PHYSICAL EXAMINATION: GENERAL: The patient is alert and oriented x3, not in any acute distress. Well developed, well nourished. HEENT: Pupils are round and equally reacting to light. EOMI. No scleral icterus. No conjunctival pallor. Normocephalic, atraumatic. No pharyngeal erythema. No thyromegaly. CARDIOVASCULAR: S1 and S2 present. No murmurs, rubs, or gallops. PULMONARY: Chest is clear to auscultation, no wheezing or crackles. ABDOMEN: Soft, nontender, nondistended, normoactive bowel sounds. No palpable organomegaly. MUSCULOSKELETAL: No joint swelling or deformity. EXTREMITIES: No cyanosis, clubbing, or pedal edema. NEUROLOGICAL: Gross neurological examination did not reveal any focal deficits. SKIN: No rashes. Note: Because of COVID 19 isolation, some of the history and physical exam findings are indirect and obtained from nursing staff, and other physician exami nations to avoid unnecessary contact with the patient. Results CBC & Chem 7: 05/27/20 15:20 05/27/20 15:20 Labs: Abnormal Lab Results - Last 24 Hours (Table) 05/27/20 05/27/20 05/27/20 Range/Units 15:20 15:20 15:20 Lymphocytes # 0.4 L (1.0-4.8) k/uL Sodium 127 L (137-145) mmol/L Chloride 94 L (98-107) mmol/L BUN 22 H (7-17) mg/dL Creatinine 1.33 H (0.52-1.04) mg/dL Glucose 155 H (74-99) mg/dL AST 46 H (14-36) U/L TSH 7.300 H (0.465-4.680) mIU/L Coronavirus (PCR) (Not Detectd) 05/27/20 Range/Units 17:26 Lymphocytes # (1.0-4.8) k/uL Sodium (137-145) mmol/L Chloride (98-107) mmol/L BUN (7-17) mg/dL Creatinine (0.52-1.04) mg/dL Glucose (74-99) mg/dL AST (14-36) U/L TSH (0.465-4.680) mIU/L Coronavirus (PCR) Detected A (Not Detectd) Thrombosis Risk Factor Assmnt - Choose All That Apply Any of the Below Risk Factors Present?: Yes Each Factor Represents 1 point: Obesity (BMI >25) Each Risk Factor Represents 3 Points: Age 75 years or older Thrombosis Risk Factor Assessment Total Risk Factor Score: 4 Thrombosis Risk Factor Assessment Level: Moderate Risk Assessment and Plan Plan: -Generalized weakness and fatigue: Secondary to acute renal failure and hyponatremia: Which is again secondary to dehydration patient was started on IV fluids hold off on FELIX inhibitor and diuretics and recent metabolic profile will be repeated tomorrow -Hypervolemic hyponatremia -Acute renal failure secondary to dehydration prerenal azotemia as mentioned above -Covid 19 pneumonia: Patient doesn't have significant shortness of breath does have cough symptomatic treatment for this -Elevated TSH probably sick euthyroid syndrome TSH may need to be repeated in about a month -Hypertension patient is presently hypotensive holding off on antidepressant medications as mentioned above -Hyperlipidemia -Due to prophylaxis with subcutaneous heparin
[2020-05-28] MEDS: HEPARIN SODIUM,PORCINE/PF 5,000 UNIT/0.5 ML SYRINGE SQ SCH (21:20)
[2020-05-28] MEDS: ATORVASTATIN 10 MG TAB PO SCH (21:20)
[2020-05-29] MEDS: LEVOTHYROXINE 88 MCG TAB PO SCH (06:01)
[2020-05-29 07:32] LABS: African American GFR (CKD) >90 (>60 ml/min/1.73 sqM); Anion Gap 7 mmol/L; Blood Urea Nitrogen 13 mg/dL (7-17); Calcium 8.3 mg/dL (8.4-10.2); Carbon Dioxide 22 mmol/L (22-30); Chloride 104 mmol/L (98-107); Glucose 85 mg/dL (74-99); Non-African American GFR(CKD) 85 (>60 ml/min/1.73 sqM); Sodium 133 mmol/L (137-145)
[2020-05-29] MEDS: SODIUM CHLORIDE 0.9% 1,000 ML IV SCH (09:48)
[2020-05-29] MEDS: ASCORBIC ACID 500 MG TAB PO SCH (09:48)
[2020-05-29] MEDS: HEPARIN SODIUM,PORCINE/PF 5,000 UNIT/0.5 ML SYRINGE SQ SCH (09:48)
[2020-05-29] MEDS: ZINC SULFATE 220 MG CAP PO SCH (09:48)
[2020-05-29 14:08] VITALS: BP 137/75; PULSE 78; RESP 18; TEMP 98.6
--- NOTE | 2020-05-29 14:13 | P.DS ---
Providers Date of admission: 05/27/20 17:03 Attending physician: Aaron Benavidez MD Primary care physician: Anne [facility] Course: Patient given, as of generalized weakness and lethargy found to be hyponatremic and elevated a serum creatinine 1.3 patient appears to be in acute renal failure patient is hypotensive as a elevated TSH with normal T4. Patient denied any fever chills patient has been having cough for about 3 weeks. Patient is found to have positive Covid 19. 6 considering the duration of symptoms patient will not be a candidate for Monocryl antibody. Patient will be started on fluids patient will be admitted with repeat basic metabolic profile again tomorrow patient's the FELIX inhibitor and hydrochlorothiazide will be held. Patient was being treated for bronchitis as an outpatient with the doxycycline. Chest x-ray did show some interstitial prominence consistent with Covid 19 pneumonia 05/29/2020 Patient hyponatremia resolved patient blood pressure improved. Patient is not a candidate for diuretics like hydrochlorothiazide for management of blood pressure because of her severe hyponatremia. Patient is on 40 mg of her lisinopril. Lisinopril was held because of renal failure in spite of which her blood pressure remained normal but I'm expecting his blood pressure to go up because of that reason patient will be started on low-dose that his 5 mg of lisinopril which she may need. Patient is not hypoxic in spite of Covid 19, patient will be asked to check her pulse oximeter frequently at home and if it goes below 91%. Patient will need to come to the hospital. As of now as patient is not hypoxic patient will not need any steroids but patient will be discharged on vitamins. Patient is currently saturating 96% on room air PHYSICAL EXAMINATION: GENERAL: The patient is alert and oriented x3, not in any acute distress. Well developed, well nourished. HEENT: Pupils are round and equally reacting to light. EOMI. No scleral icterus. No conjunctival pallor. Normocephalic, atraumatic. No pharyngeal erythema. No thyromegaly. CARDIOVASCULAR: S1 and S2 present. No murmurs, rubs, or gallops. PULMONARY: Chest is clear to auscultation, no wheezing or crackles. ABDOMEN: Soft, nontender, nondistended, normoactive bowel sounds. No palpable organomegaly. MUSCULOSKELETAL: No joint swelling or deformity. EXTREMITIES: No cyanosis, clubbing, or pedal edema. NEUROLOGICAL: Gross neurological examination did not reveal any focal deficits. SKIN: No rashes. Assessment and Plan Plan: -Generalized weakness and fatigue: Secondary to acute renal failure and hyponatremia: Which is again secondary to dehydration improved IV fluids and holding off FELIX inhibitor and diuretics. -Hypovolemic hyponatremia -Acute renal failure secondary to dehydration prerenal azotemia as mentioned above along with continued bleeding factors for like hydrochlorothiazide and lisinopril -Covid 19 pneumonia: Patient doesn't have significant shortness of breath does have cough symptomatic treatment for this -Elevated TSH probably sick euthyroid syndrome TSH may need to be repeated in about a month -Hypertension patient was hypotensive on admission -Hyperlipidemia Patient Condition at Discharge: Fair Plan - Discharge Summary Discharge Rx Participant: Yes New Discharge Prescriptions: New Zinc Sulfate [Orazinc] 220 mg PO DAILY #30 cap guaiFENesin-DM 100-10MG/5ML [Robitussin DM] 10 ml PO Q6H PRN #1 bottle PRN Reason: Cough Albuterol Inhaler [Ventolin Hfa Inhaler] 2 puff INHALATION RT-QID PRN #1 inhaler PRN Reason: Shortness Of Breath Or Wheezing Ascorbic Acid [Vitamin C] 500 mg PO BID #30 tab Continue Simvastatin [Zocor] 20 mg PO HS Levothyroxine Sodium [Synthroid] 88 mcg PO DAILY Acetaminophen Tab [Tylenol] 650 mg PO Q6HR PRN tab PRN Reason: Fever and/ or Mild Pain Niacinamide 500 mg PO DAILY Doxycycline Hyclate 100 mg PO BID Biotin 10,000 mcg PO DAILY Discontinued lisinopriL 40 mg PO DAILY Hydrochlorothiazide [hydroCHLOROthiazide] 12.5 mg PO DAILY Discharge Medication List Levothyroxine Sodium [Synthroid] 88 mcg PO DAILY 06/07/15 [History] Simvastatin [Zocor] 20 mg PO HS 06/07/15 [History] Acetaminophen Tab [Tylenol] 650 mg PO Q6HR PRN tab 10/10/17 [Rx] Biotin 10,000 mcg PO DAILY 05/27/20 [History] Doxycycline Hyclate 100 mg PO BID 05/27/20 [History] Niacinamide 500 mg PO DAILY 05/27/20 [History] Albuterol Inhaler [Ventolin Hfa Inhaler] 2 puff INHALATION RT-QID PRN #1 inhaler 05/29/20 [Rx] Ascorbic Acid [Vitamin C] 500 mg PO BID #30 tab 05/29/20 [Rx] Zinc Sulfate [Orazinc] 220 mg PO DAILY #30 cap 05/29/20 [Rx] guaiFENesin-DM 100-10MG/5ML [Robitussin DM] 10 ml PO Q6H PRN #1 bottle 05/29/20 [Rx] Follow up Appointment(s)/Referral(s): Anne Bae III, MD [Primary Care Provider] - 3 Days (office closed at time of discharge .Please call to schedule appointment ) Patient Instructions/Handouts: Coronavirus Disease 2019 (COVID-19) Discharge Disposition: HOME SELF-CARE
== END 2020-05-29 14:58 | disposition home or self-care (01) ==
LOC: EC 14:17 → INTOOBSV 17:03 → 5NMEDONC 17:03 → 4SSUR 20:10 → UNDODISIN 05-29 14:58
PROVIDERS: ADMIT Internal Medicine; ATTEND Internal Medicine
DX: U07.1 COVID-19 (principal); J12.82 Pneumonia due to coronavirus disease 2019; E87.1 Hypo-osmolality and hyponatremia; N17.9 Acute kidney failure, unspecified; E78.5 Hyperlipidemia, unspecified; E86.0 Dehydration; E86.1 Hypovolemia; I10 Essential (primary) hypertension; E07.81 Sick-euthyroid syndrome; E03.9 Hypothyroidism, unspecified; I95.9 Hypotension, unspecified; Z86.010 Personal history of colon polyps; Z79.890 Hormone replacement therapy; Z80.0 Family history of malignant neoplasm of digestive organs; Z79.899 Other long term (current) drug therapy; Z87.19 Personal history of other diseases of the digestive system
CPT/HCPCS: 96376; 96361 ×3; 96374; 99285; 93005; 84439; 80053; 80048; 84443; 83605; 83735; 84484; 85025; 85610; 85730; 87635; 71046; G0378 ×3; J1644 ×2

== ENCOUNTER 2023-12-10 16:58 | Inpatient (IN) | payer MEDICARE ==
--- NOTE | 2023-12-10 17:12 | ED ---
Syncope HPI - General Chief Complaint: Syncope Stated Complaint: Syncope Time Seen by Provider: 12/10/23 17:03 Source: patient, EMS, RN notes reviewed, old records reviewed Mode of arrival: EMS Limitations: no limitations - History of Present Illness Initial Comments: This is an 78-year-old female this female presents today for evaluation of recurrent syncopal events syncope with standing up 5 syncopal episodes today prior to arrival all with change of position MD Complaint: loss of consciousness -: hour(s) Prodromal Symptoms: palpitations, diaphoresis, nausea/vomiting -: second(s) Witnessed: yes - by bystander Injuries Sustained Associated with Event: None Current Symptoms: back to baseline, lightheaded History: previous syncopal episode Context: during exertion Treatments Prior to Arrival: none - Related Data Home Medications Medication Instructions Recorded Confirmed Levothyroxine Sodium [Synthroid] 88 mcg PO DAILY 06/07/15 12/10/23 Biotin [Biotin Disolve] 10,000 mcg PO DAILY 05/27/20 12/10/23 Doxycycline Hyclate 100 mg PO DAILY 05/27/20 12/10/23 Niacinamide 500 mg PO DAILY 05/27/20 12/10/23 Acetaminophen Tab [Tylenol] 500 mg PO Q6HR PRN 12/10/23 12/10/23 Ergocalciferol (Vitamin D2) 1,250 mcg PO TU 12/10/23 12/10/23 [Drisdol (50,000 Iu)] Previous Rx's Medication Instructions Recorded lisinopriL [Prinivil] 5 mg PO DAILY #30 tab 05/29/20 Aspirin 81 mg PO DAILY 30 Days #30 tab 12/13/23 Atorvastatin [Lipitor] 40 mg PO HS 30 Days #30 tab 12/13/23 Clopidogrel [Plavix] 75 mg PO DAILY 30 Days #30 tab 12/13/23 Lactulose [Cephulac] 20 gm PO DAILY PRN 30 Days #900 ml 12/13/23 amLODIPine [Norvasc] 5 mg PO DAILY 30 Days #30 tab 12/13/23 Allergies Allergy/AdvReac Type Severity Reaction Status Date / Time No Known Allergies Allergy Verified 12/10/23 17:43 Review of Systems ROS Statement: Those systems with pertinent positive or pertinent negative responses have been documented in the HPI. ROS Other: All systems not noted in ROS Statement are negative. Past Medical History Past Medical History: Hyperlipidemia, Hypertension, Thyroid Disorder Additional Past Medical History / Comment(s): Hypothyroid, diverticular disease, benign colon polyps, bilateral tinnitis, bilateral varicosities per pt. History of Any Multi-Drug Resistant Organisms: None Reported Past Surgical History: Section, Tubal Ligation Additional Past Surgical History / Comment(s): Colonoscopies/benign polypectomies. Past Anesthesia/Blood Transfusion Reactions: Motion Sickness, Postoperative Nausea & Vomiting (PONV) Past Psychological History: No Psychological Hx Reported Smoking Status: Never smoker Past Alcohol Use History: None Reported Past Drug Use History: None Reported - Past Family History Mother Family Medical History: Cancer Additional Family Medical History / Comment(s): Mother had skin and esophageal cancer. She at the age of 86yrs. Father Additional Family Medical History / Comment(s): Father had bradycardia and of bradycardia/leg edema at the age of 84yrs. General Exam Limitations: no limitations General appearance: alert, in no apparent distress Head exam: Present: atraumatic, normocephalic, normal inspection Eye exam: Present: normal appearance, PERRL, EOMI. Absent: scleral icterus, conjunctival injection, periorbital swelling ENT exam: Present: normal exam, mucous membranes moist Neck exam: Present: normal inspection. Absent: tenderness, meningismus, lymphadenopathy Respiratory exam: Present: normal lung sounds bilaterally. Absent: respiratory distress, wheezes, rales, rhonchi, stridor Cardiovascular Exam: Present: regular rate, normal rhythm, normal heart sounds. Absent: systolic murmur, diastolic murmur, rubs, gallop, clicks GI/Abdominal exam: Present: soft, normal bowel sounds. Absent: distended, tenderness, guarding, rebound, rigid Extremities exam: Present: normal inspection, full ROM, normal capillary refill. Absent: tenderness, pedal edema, joint swelling, calf tenderness Back exam: Present: normal inspection Neurological exam: Present: alert, oriented X3, CN II-XII intact Psychiatric exam: Present: normal affect, normal mood Skin exam: Present: warm, dry, intact, normal color. Absent: rash Course Vital Signs 12/10/23 12/10/23 12/10/23 17:06 17:33 18:40 Temperature 97.5 F L 97.4 F L Pulse Rate 82 81 85 Respiratory 18 18 20 Rate Blood Pressure 177/95 189/99 186/91 O2 Sat by Pulse 95 95 95 Oximetry 12/10/23 12/10/23 12/11/23 21:32 22:58 00:14 Temperature Pulse Rate 94 66 Respiratory 18 18 Rate Blood Pressure 188/101 162/81 167/94 O2 Sat by Pulse 98 97 Oximetry - Reevaluation(s) Reevaluation #1: 12/10/23 17:15 Medical records reviewed Reevaluation #2: 12/10/23 18:21 Patient has no recurrent syncope here in the ER Reevaluation #3: 12/10/23 19:36 Patient informed of results and questions answered Reevaluation #4: Was pt. sent in by a medical professional or institution (, [facility], [employer], urgent care, hospital, or [place] [facility] facility...) When possible be specific @ -no Did you speak to anyone other than the patient for history (EMS, parent, family, police, friend...)? What history was obtained from this source @ -no Did you review nursing and triage notes (agree or disagree)? Why? @ -agree Are old charts reviewed (outside hosp., previous admission, EMS record, old EKG, old radiological studies, urgent care reports/EKG's, [place] [facility] facility records)? Report findings @ -yes Differential Diagnosis (chest pain, altered mental status, abdominal pain women, abdominal pain men, vaginal bleeding, weakness, fever, dyspnea, syncope, headache, dizziness, GI bleed, back pain, seizure, CVA, palpatations, mental health, musculoskeletal)? @ -prior EKG interpreted by me (3pts min.). @ -yes X-rays interpreted by me (1pt min.). @ -no CT interpreted by me (1pt min.). @ -yes negative for acute disease U/S interpreted by me (1pt. min.). @ -no What testing was considered but not performed or refused? (CT, X-rays, U/S, labs)? Why? @ -none What meds were considered but not given or refused? Why? @ -none Did you discuss the management of the patient with other professionals (professionals i.e. [facility] Linares, [employer], lab, RT, psych nurse, social sciences chair, establishment guide, teacher, fundraising officer, manager case management)? Give summary @ -no Was smoking cessation discussed for >3mins.? @ -no Was critical care preformed (if so, how long)? @ -yes31 Were there social determinants of health that impacted care today? How? (Homelessness, low income, unemployed, alcoholism, drug addiction, transportation, low edu. Level, literacy, decrease access to med. care, alf, rehab)? @ -none Was there de-escalation of care discussed even if they declined (Discuss DNR or withdrawal of care, Hospice)? DNR status @ -no What co-morbidities impacted this encounter? (DM, HTN, Smoking, COPD, CAD, Cancer, CVA, ARF, Chemo, Hep., AIDS, mental health diagnosis, sleep apnea, morbid obesity)? @ -none Was patient admitted / discharged? Hospital course, mention meds given and route, prescriptions, significant lab abnormalities, going to OR and other pertinent info. @ - 78 female to ER for evaluation patient [facility] for evaluation of syncope, recurrent syncopal events and patient was admitted for cardiac evaluation Admitted Undiagnosed new problem with uncertain prognosis? @ -no Drug Therapy requiring intensive monitoring for toxicity (Heparin, Nitro, Insulin, Cardizem)? @ -no Were any procedures done? @ -no Diagnosis/symptom? @ -Recurrent syncope Acute, or Chronic, or Acute on Chronic? @ -Acute Uncomplicated (without systemic symptoms) or Complicated (systemic symptoms)? @ -Complicated Side effects of treatment? @ -no Exacerbation, Progression, or Severe Exacerbation? @ -exacerbation Poses a threat to life or bodily function? How? (Chest pain, USA, DE, pneumonia, PE, COPD, DKA, ARF, appy, cholecystitis, CVA, Diverticulitis, Homicidal, Suicidal, threat to staff... and all critical care pts) @ -yes extremes of age Reevaluation #5: Differential Syncope: Valvular disease, hypertrophic cardiomyopathy, pulmonary embolism, tamponade, tachycardia, bradycardia, DE, hypovolemia, hemorrhage, dissection, anemia, intracranial hemorrhage, seizure, hypoglycemia, carbon monoxide poisoning, this is not meant to be an all-inclusive list. - Consultations Consultation #1: Spoke with Dr. Vaca agrees to admit this patient EKG Findings - EKG Comments: EKG Findings:: EKG is sinus 90 FL 176 QRS 87 QTc 447 - EKG Results: EKG: interpreted by MAXD Medical Decision Making - Medical Decision Making 78 female to ER for evaluation patient [facility] for evaluation of syncope, recurrent syncopal events and patient was admitted for cardiac evaluation - Lab Data Result diagrams: 12/11/23 04:41 12/11/23 04:41 Lab Results 12/10/23 12/10/23 12/10/23 Range/Units 17:11 17:11 17:11 WBC 8.9 (3.8-10.6) k/uL RBC 5.17 (3.80-5.40) m/uL Hgb 15.2 (11.4-16.0) gm/dL Hct 46.7 H (34.0-46.0) % MCV 90.3 (80.0-100.0) fL MCH 29.4 (25.0-35.0) pg MCHC 32.6 (31.0-37.0) g/dL RDW 13.6 (11.5-15.5) % Plt Count 283 (150-450) k/uL MPV 8.0 Neutrophils % 83 % Lymphocytes % 10 % Monocytes % 4 % Eosinophils % 1 % Basophils % 0 % Neutrophils # 7.4 (1.3-7.7) k/uL Lymphocytes # 0.9 L (1.0-4.8) k/uL Monocytes # 0.4 (0-1.0) k/uL Eosinophils # 0.1 (0-0.7) k/uL Basophils # 0.0 (0-0.2) k/uL PT 11.1 (10.0-12.5) sec INR 1.0 (<1.2) APTT 22.1 (22.0-30.0) sec D-Dimer 1.33 H (<0.60) mg/L FEU Sodium 141 (137-145) mmol/L Potassium 3.7 (3.5-5.1) mmol/L Chloride 108 H (98-107) mmol/L Carbon Dioxide 25 (22-30) mmol/L Anion Gap 8 mmol/L BUN 10 (7-17) mg/dL Creatinine 0.53 (0.52-1.04) mg/dL Est GFR (CKD-EPI)AfAm >90 (>60 ml/min/1.73 sqM) Est GFR (CKD-EPI)NonAf >90 (>60 ml/min/1.73 sqM) Glucose 162 H (74-99) mg/dL Plasma Lactic Acid Bart (0.7-2.0) mmol/L Calcium 9.1 (8.4-10.2) mg/dL Phosphorus 2.4 L (2.5-4.5) mg/dL Magnesium 1.8 (1.6-2.3) mg/dL Total Bilirubin 0.5 (0.2-1.3) mg/dL AST 25 (14-36) U/L ALT 17 (4-34) U/L Alkaline Phosphatase 100 (38-126) U/L Troponin I (0.000-0.034) ng/mL NT-Pro-B Natriuret Pep 220 pg/mL Total Protein 6.8 (6.3-8.2) g/dL Albumin 4.1 (3.5-5.0) g/dL 12/10/23 12/10/23 Range/Units 17:11 17:11 WBC (3.8-10.6) k/uL RBC (3.80-5.40) m/uL Hgb (11.4-16.0) gm/dL Hct (34.0-46.0) % MCV (80.0-100.0) fL MCH (25.0-35.0) pg MCHC (31.0-37.0) g/dL RDW (11.5-15.5) % Plt Count (150-450) k/uL MPV Neutrophils % % Lymphocytes % % Monocytes % % Eosinophils % % Basophils % % Neutrophils # (1.3-7.7) k/uL Lymphocytes # (1.0-4.8) k/uL Monocytes # (0-1.0) k/uL Eosinophils # (0-0.7) k/uL Basophils # (0-0.2) k/uL PT (10.0-12.5) sec INR (<1.2) APTT (22.0-30.0) sec D-Dimer (<0.60) mg/L FEU Sodium (137-145) mmol/L Potassium (3.5-5.1) mmol/L Chloride (98-107) mmol/L Carbon Dioxide (22-30) mmol/L Anion Gap mmol/L BUN (7-17) mg/dL Creatinine (0.52-1.04) mg/dL Est GFR (CKD-EPI)AfAm (>60 ml/min/1.73 sqM) Est GFR (CKD-EPI)NonAf (>60 ml/min/1.73 sqM) Glucose (74-99) mg/dL Plasma Lactic Acid Bart 1.9 (0.7-2.0) mmol/L Calcium (8.4-10.2) mg/dL Phosphorus (2.5-4.5) mg/dL Magnesium (1.6-2.3) mg/dL Total Bilirubin (0.2-1.3) mg/dL AST (14-36) U/L ALT (4-34) U/L Alkaline Phosphatase (38-126) U/L Troponin I <0.012 (0.000-0.034) ng/mL NT-Pro-B Natriuret Pep pg/mL Total Protein (6.3-8.2) g/dL Albumin (3.5-5.0) g/dL - EKG Data -: EKG Interpreted by Me - Radiology Data Radiology results: report reviewed (CT angio chest negative for acute disease), image reviewed Critical Care Time Critical Care Time: Yes Total Critical Care Time: 31 Disposition Clinical Impression: Syncope Disposition: ADMITTED IP TO THIS HOSP Condition: Good Is patient prescribed a controlled substance at d/c from ED?: No Time of Disposition: 17:30
[2023-12-10 17:27] LABS: Basophils % (A) 0 %; Eosinophils # (A) 0.1 k/uL (0-0.7); Eosinophils % (A) 1 %; HCT 46.7 % (34.0-46.0); HGB 15.2 gm/dL (11.4-16.0); Lymphocytes # (A) 0.9 k/uL (1.0-4.8); Lymphocytes % (A) 10 %; MCH 29.4 pg (25.0-35.0); MCHC 32.6 g/dL (31.0-37.0); MCV 90.3 fL (80.0-100.0); Monocytes # (A) 0.4 k/uL (0-1.0); Monocytes % (A) 4 %; Neutrophils # (A) 7.4 k/uL (1.3-7.7); Neutrophils % (A) 83 %; Platelet Count 283 k/uL (150-450); RBC 5.17 m/uL (3.80-5.40); RDW 13.6 % (11.5-15.5); WBC 8.9 k/uL (3.8-10.6)
[2023-12-10 17:38] LABS: ALT 17 U/L (4-34); AST 25 U/L (14-36); African American GFR (CKD) >90 (>60 ml/min/1.73 sqM); Albumin 4.1 g/dL (3.5-5.0); Alkaline Phosphatase 100 U/L (38-126); Anion Gap 8 mmol/L; Blood Urea Nitrogen 10 mg/dL (7-17); Calcium 9.1 mg/dL (8.4-10.2); Carbon Dioxide 25 mmol/L (22-30); Chloride 108 mmol/L (98-107); Glucose 162 mg/dL (74-99); Magnesium 1.8 mg/dL (1.6-2.3); Non-African American GFR(CKD) >90 (>60 ml/min/1.73 sqM); Phosphorus 2.4 mg/dL (2.5-4.5); Potassium 3.7 mmol/L (3.5-5.1); Sodium 141 mmol/L (137-145); Total Bilirubin 0.5 mg/dL (0.2-1.3); Total Protein 6.8 g/dL (6.3-8.2)
[2023-12-10 17:40] LABS: Partial Thromboplastin Time 22.1 sec (22.0-30.0); Prothrombin Time 11.1 sec (10.0-12.5)
[2023-12-10] MEDS: SODIUM CHLORIDE 0.9% 1,000 ML IV STA (17:46)
[2023-12-10 17:47] LABS: NT-Pro-B-Type Natriuretic Pept 220 pg/mL
[2023-12-10] MEDS: MAGNESIUM OXIDE 400 MG TAB PO STA (18:59)
[2023-12-10] MEDS: POTASSIUM BICARBONATE/CIT AC 20 MEQ TABLET.EFF PO ONE (19:00)
--- NOTE | 2023-12-10 19:18 | CT ---
EXAMINATION TYPE: CT angio chest CT DLP: 396.5 mGycm, Automated exposure control for dose reduction was used. DATE OF EXAM: 12/10/2023 6:57 PM COMPARISON: Chest radiograph from same day. CLINICAL INDICATION: Female, 78 years old with history of pain; Elevated D-dimer. TECHNIQUE/CONTRAST: CTA scan of the thorax is performed with IV Contrast, patient injected with 100 ml mL of Isovue 370, MIP images are created and reviewed these are created on a separate workstation.. FINDINGS: Pulmonary Artery: There is no evidence for a filling defect within the pulmonary vasculature to sugge st acute pulmonary embolism. The pulmonary artery is of normal size. Lungs/Pleura: No evidence of focal consolidation, pleural effusion or pneumothorax. Right lower lobe lateral pulmonary nodule along the pleura measuring 7 mm. Series 411 image 110. Left lower lobe late ral pulmonary nodule measuring 5 mm series 411 image and 16 and measuring 5 mm series 411 image 99. Airway: Large airways are patent. Heart: The heart is mildly enlarged for size. Atherosclerosis of the arterial vasculature. Vasculature: No evidence of aortic aneurysm. Mediastinum: No gross evidence of adenopathy. Musculoskeletal: Severe degenerative disc disease changes are present throughout the thoracolumbar sp ine. Soft Tissues/lymph nodes: Unremarkable. Lower neck: No significant findings. Upper Abdomen: No significant findings. IMPRESSION: 1. No evidence of pulmonary embolism. 2. Bilateral lower lobe pulmonary nodules short-term follow-up recommended ensure stability and 3-6 m onths. 3. Cardiomegaly with moderate coronary artery atherosclerosis. Follow up recommendations for incidental pulmonary nodules, if there are any, are per [employer] or [employer]. https://radiopaedia.org/articles/ypsnxezbwi-dbmamtb-ujtpwiabb-eojjrr-[email or web address]-[email or web address]?lang=us [facility], , 12/10/2023 7:15 PM
[2023-12-10] MEDS ORDERED: MORPHINE SULFATE 4 MG/ML SYRINGE IV PRN (19:34)
[2023-12-10] MEDS ORDERED: NALOXONE 0.4 MG/ML 1 ML VIAL IV PRN (19:34)
[2023-12-10] MEDS: SODIUM CHLORIDE 0.9% 1,000 ML IV SCH (19:54)
[2023-12-10] MEDS ORDERED: MELATONIN 3 MG TABLET PO PRN (22:06)
[2023-12-10] MEDS ORDERED: CALCIUM CARBONATE 500 MG CHEWABLE PO PRN (22:06)
[2023-12-10] MEDS ORDERED: ALPRAZolam 0.25 MG TAB PO PRN (22:06)
[2023-12-10] MEDS: LABETALOL 5 MG/ML VIAL MDV IVP STA (22:47)
[2023-12-10] MEDS: ASPIRIN 81 MG PO STA (22:48)
[2023-12-10] MEDS: ENOXAPARIN 40 MG/0.4 ML SYRINGE SQ SCH (22:49)
[2023-12-10] MEDS: ATORVASTATIN 40 MG TAB PO SCH (22:49)
--- NOTE | 2023-12-10 23:16 | P.HPIM ---
History of Present Illness H&P Date: 12/10/23 Chief Complaint: Sudden fall This is a pleasant 78-year-old patient, follows with Dr. Wells. Stable medical conditions include hypertension, hyperlipidemia, hypothyroid, diverticulosis, bilateral tinnitus, lower extremity varicosities. Patient lives alone. This morning around 7 AM had a slight headache. She went around to get some breakfast and sat down. When she got up for just felt very weak on her legs and went on the ground. She called her son. He thought her speech was a bit off. Patient is accompanied by her daughter Cassandra in the ER. She gets dizzy when she moves about. Has not really walked since then. No change in her vision. 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 No smoking or alcohol. Physical examination: VITAL SIGNS: 97.4, 94, 18, 188 x 101, 98% room air GENERAL: BMI 34.5, reclining in bed awake not in distress. EYES: Pupils equal. Conjunctiva sari l. HEENT: External appearance of nose and ears normal, oral cavity grossly normal. NECK: JVD not raised; masses not palpable. HEART: First and second heart sounds are normal; no edema. LUNGS: Respiratory rate normal; clear to auscultation. ABDOMEN: Soft, nontender, liver spleen not palpable, no masses palpable. PSYCH: Alert and oriented x3; mood and affect sari l. MUSCULOSKELETAL:No Clubbing/cyanosis;muscles-grossly intact NEUROLOGICAL: [Very slight facial asymmetry. Mild slightly pulled to the right. No nystagmus patient words are stretched out. Left past-pointing and left dysdiadochokinesia. Power sensation grossly intact LYMPHATICS: No lymph nodes palpable in the axilla and neck INVESTIGATIONS, reviewed in the clinical context: White count 8.9 hemoglobin 15.2 platelets 283 sodium 141 potassium 3.7 creatinine 0.53 troponin I less than 0.012 proBNP 220 EKG tracing personally reviewed by me-normal sinus rhythm Assessment plan: -Patient presented acute onset of losing balance. Speech is slow. Left-sided dysdiadochokinesia past-pointing. Features of cerebellar stroke. Aspirin. Lipitor. Plavix. Stat CT scan brain without contrast. CT angiogram of the head and neck. MRI of the brain with and without contrast. 2D echocardiogram. Neurochecks every 4 hours. Neurology consultation. -Essential hypertension, uncontrolled within 24 hours of stroke. Permissive hypertension. Follow closely Prinivil 5 mg a day -Hypothyroid Synthroid 88 mcg a day -Hypercholesterolemia Start Lipitor 40 mg nightly -Primary osteoarthritis Pain medication as needed -Full code Care was discussed with the patient daughter at the bedside. Questions answere d. Given the complexity and severity of patient's condition expect the patient to be in the hospital at least for 2 overnights Past Medical History Past Medical History: Hyperlipidemia, Hypertension, Thyroid Disorder Additional Past Medical History / Comment(s): Hypothyroid, diverticular disease, benign colon polyps, bilateral tinnitis, bilateral varicosities per pt. History of Any Multi-Drug Resistant Organisms: None Reported Past Surgical History: Section, Tubal Ligation Additional Past Surgical History / Comment(s): Colonoscopies/benign polypectomies. Past Anesthesia/Blood Transfusion Reactions: Motion Sickness, Postoperative Nausea & Vomiting (PONV) Past Psychological History: No Psychological Hx Reported Smoking Status: Never smoker Past Alcohol Use History: None Reported Past Drug Use History: None Reported - Past Family History Mother Family Medical History: Cancer Additional Family Medical History / Comment(s): Mother had skin and esophageal cancer. She at the age of 86yrs. Father Additional Family Medical History / Comment(s): Father had bradycardia and of bradycardia/leg edema at the age of 84yrs. Medications and Allergies Home Medications Medication Instructions Recorded Confirmed Type Levothyroxine Sodium [Synthroid] 88 mcg PO DAILY 06/07/15 12/10/23 History Simvastatin [Zocor] 20 mg PO HS 06/07/15 12/10/23 History Biotin [Biotin Disolve] 10,000 mcg PO DAILY 05/27/20 12/10/23 History Doxycycline Hyclate 100 mg PO DAILY 05/27/20 12/10/23 History Niacinamide 500 mg PO DAILY 05/27/20 12/10/23 History lisinopriL [Prinivil] 5 mg PO DAILY #30 tab 05/29/20 12/10/23 Rx Acetaminophen Tab [Tylenol Tab] 500 mg PO Q6HR PRN 12/10/23 12/10/23 History Ergocalciferol (Vitamin D2) 1,250 mcg PO TU 12/10/23 12/10/23 History [Drisdol (50,000 Iu)] Allergies Allergy/AdvReac Type Severity Reaction Status Date / Time No Known Allergies Allergy Verified 12/10/23 17:43 Physical Exam Vitals: Vital Signs Temp Pulse Resp BP Pulse Ox 12/10/23 21:32 94 18 188/101 98 12/10/23 18:40 85 20 186/91 95 12/10/23 17:33 97.4 F L 81 18 189/99 95 12/10/23 17:06 97.5 F L 82 18 177/95 95 Intake and Output 12/10/23 12/10/23 12/11/23 14:59 22:59 06:59 Other: Weight 88.451 kg Results CBC & Chem 7: 12/10/23 17:11 12/10/23 17:11 Labs: Abnormal Lab Results - Last 24 Hours (Table) 12/10/23 12/10/23 12/10/23 Range/Units 17:11 17:11 17:11 Hct 46.7 H (34.0-46.0) % Lymphocytes # 0.9 L (1.0-4.8) k/uL D-Dimer 1.33 H (<0.60) mg/L FEU Chloride 108 H (98-107) mmol/L Glucose 162 H (74-99) mg/dL Phosphorus 2.4 L (2.5-4.5) mg/dL
[2023-12-11] MEDS: CLOPIDOGREL 75 MG TAB PO SCH (00:04)
[2023-12-11 00:48] LABS: Appearance,Urine Clear (Clear); Bilirubin,Urine Negative (Negative); Blood,Urine Negative (Negative); Color,Urine Colorless; Glucose,Urine (UA) Negative (Negative); Ketones,Urine Negative (Negative); Leukocyte Esterase,Urine Negative (Negative); Nitrite,Urine Negative (Negative); Protein,Urine Trace (Negative); Urobilinogen,Urine <2.0 mg/dL (<2.0)
[2023-12-11 00:49] LABS: Specific Gravity,Urine 1.046 (1.001-1.035)
--- NOTE | 2023-12-11 01:02 | CT ---
EXAM: CT Head Without Intravenous Contrast CLINICAL HISTORY: ITS.REASON CT Reason: cva TECHNIQUE: Axial computed tomography images of the head/brain without intravenous contrast. CTDI is 49.1 mGy and DLP is 1095.1 mGy-cm. This CT exam was performed using one or more of the following dose reduction techniques: automated exposure control, adjustment of the mA and/or kV according to patient size, and/or use of iterative reconstruction technique. COMPARISON: No relevant prior studies available. FINDINGS: Brain: Remote ischemic injuries of the bilateral internal capsules. No hemorrhage. Mild to moderate nonspecific white matter changes. No edema. Ventricles: Unremarkable. No ventriculomegaly. Bones/joints: Critical lucencies about tooth #3, 12 and 13 concerning for periapical abscesses. Recommend dental consult.. No acute fracture. Soft tissues: Unremarkable. Sinuses: Unremarkable as visualized. No acute sinusitis. Mastoid air cells: Unremarkable as visualized. No mastoid effusion. IMPRESSION: No evidence of acute intracranial pathology.
[2023-12-11] MEDS: ONDANSETRON 4 MG/2 ML VIAL IVP PRN (01:38)
[2023-12-11] MEDS: LEVOTHYROXINE 88 MCG TAB PO SCH (06:10)
[2023-12-11 08:38] LABS: Basophils # (A) 0.03 X 10*3/uL (0.00-0.10); Basophils % (A) 0.3 %; Eosinophils # (A) 0 X 10*3/uL (0.04-0.35); Eosinophils % (A) 0 %; HCT 45.6 % (37.2-46.3); HGB 14.5 g/dL (12.0-15.0); Lymphocytes # (A) 0.92 X 10*3/uL (0.90-5.00); Lymphocytes % (A) 9.6 %; MCH 28.5 pg (27.0-32.0); MCHC 31.8 g/dL (32.0-37.0); MCV 89.6 FL (80.0-97.0); Mean Platelet Volume 10.8 FL (9.5-12.2); Monocytes % (A) 5.2 %; NRBC Per 100 WBC 0 X 10*3/uL (0.00-0.01); Neutrophils # (A) 8.12 X 10*3/uL (1.80-7.70); Neutrophils % (A) 84.5 %; Platelet Count 283 X 10*3/uL (140-440); RBC 5.09 X 10*6/uL (4.10-5.20); RDW 13.8 % (11.5-14.5); WBC 9.61 X 10*3/uL (4.50-10.00)
[2023-12-11] MEDS ORDERED: lisinopriL 5 MG TAB PO SCH (09:00)
[2023-12-11] MEDS ORDERED: LACTULOSE 20 GM/30 ML CUP PO PRN (09:00)
[2023-12-11] MEDS: NIACIN TR 500 MG CAPLET PO SCH (09:07)
[2023-12-11] MEDS: lisinopriL 10 MG TAB PO SCH (09:07)
[2023-12-11] MEDS: ASPIRIN 81 MG PO SCH (09:07)
[2023-12-11 09:34] LABS: ALT 14 U/L (8-44); AST 20 U/L (13-35); Albumin/Globulin Ratio 1.67 Ratio (1.60-3.17); Alkaline Phosphatase 86 U/L (41-126); BUN/Creat Ratio 15.17 Ratio (12.00-20.00); Blood Urea Nitrogen 9.1 mg/dL (9.0-27.0); Carbon Dioxide 22.3 mmol/L (21.6-31.8); Chloride 106 mmol/L (96-109); Globulin 2.4 g/dL (1.6-3.3); Glucose 127 mg/dL (70-110); Phosphorus 3.6 mg/dL (2.4-5.1); Potassium 4.1 mmol/L (3.5-5.5); Sodium 141 mmol/L (135-145); Total Bilirubin 0.3 mg/dL (0.3-1.2); Total Protein 6.4 g/dL (6.2-8.2)
--- NOTE | 2023-12-11 09:48 | US ---
EXAMINATION TYPE: US carotid duplex BILAT DATE OF EXAM: 12/11/2023 COMPARISON: NONE CLINICAL INDICATION: Female, 78 years old with history of Possible cerebellar stroke; Stroke TECHNIQUE: Grayscale, color Doppler and spectral Doppler evaluation of the bilateral carotid systems and vertebral arteries. Indirect Doppler criteria was utilized. FINDINGS: EXAM MEASUREMENTS: RIGHT: Peak Systolic Velocity (PSV) cm/sec ----- Right CCA: 71.9 ----- Right ICA: 164 ----- Right ECA: 122 ICA/CCA ratio: 2.3 RIGHT: End Diastole cm/sec ----- Right CCA: 22.6 ----- Right ICA: 17.5 ----- Right ECA: 12.7 LEFT: Peak Systolic Velocity (PSV) cm/sec ----- Left CCA: 64.7 ----- Left ICA: 231 ----- Left ECA: 87.8 ICA/CCA ratio: 3.6 LEFT: End Diastole cm/sec ----- Left CCA: 13.7 ----- Left ICA: 66.9 ----- Left ECA: 12.4 VERTEBRALS (direction of flow): Right Vertebral: Antegrade Left Vertebral: Antegrade Rhythm: Normal FLOTATION TENDER NOTES: plaque noted at bilateral bulbs, elevated ratios, significant stenosis at the left proximal ICA IMPRESSION: 1. Measurements suggest a severe, greater than 70% proximal left ICA stenosis. 2. Measurements also suggest a moderate (50-69%) proximal right ICA stenosis. Criteria for Assigning % of Stenosis / Diameter reduction (Estimation based on the indirect measurements of the internal carotid artery velocities (ICA PSV). 1. Normal (no stenosis)=ICA PSV < 125 cm/s: ratio < 2.0: ICA EDV<40 cm/s. 2. Less than 50% stenosis=ICA PSV < 125 cm/s: ratio < 2.0: ICA EDV<40 cm/s. 3. 50 to 69% stenosis=ICA PSV of 125 to 230 cm/s: ration 2.0 ? 4.0: ICA EDV 40-100 cm/s. 4. Greater than 70% stenosis to near occlusion= ICA PSV > 230 cm/s: ratio > 4.0: ICA EDV > 100 cm/s. 5. Near occlusion= ICA PSV velocities may be low or undetectable: variable ratio and ICA EDV. 6. Total occlusion=unable to detect flow. [facility], , 12/11/2023 9:46 AM
[2023-12-11] MEDS: DOXYCYCLINE 100 MG CAP PO SCH (10:00)
--- NOTE | 2023-12-11 10:30 | P.CRDCN ---
History of Present Illness History of present illness: HISTORY OF PRESENT ILLNESS: This is a 78-year-old female with a past medical history significant for hypertension, hyperlipidemia, and hypothyroidism. Patient does not follow with a silk spreader. We have been asked to see the patient in consultation for syncope. Patient examined at the bedside. Patient states yesterday she was walking in her house when she began to feel unsteady. She states that she did lose her balance and fell to the ground. She denied having any chest pain or pressure. Denied any shortness of breath. She believes that she lost consciousness for a very short period of time. There was no one home with her at the time this happened. Patient denies having previous episodes of syncope. Patient's blood pressure blood pressure elevated this morning with a reading of 170/88. DIAGNOSTICS: - EKG reveals sinus mechanism with no signs of acute ischemia - Chest CT: Negative for pulmonary embolism. Bilateral lower lobe pulmonary nodules. Cardiomegaly with moderate coronary artery atherosclerosis. - CT brain: Negative for acute process - Carotid Doppler: Severe greater than 70% proximal left ICA stenosis and moderate 50 to 69% proximal right ICA stenosis. - Laboratory data: WBC 9.61. Hemoglobin 14.5. Platelet count 283. D-dimer 1.33. Sodium 141. Potassium 4.1. BUN 9.1. Creatinine 0.6. Troponin negative x 1. proBNP 220. - Current home cardiac medications include lisinopril 5 mg daily, simvastatin 20 mg at night REVIEW OF SYSTEMS: At the time of my exam: CONSTITUTIONAL: Denies fever or chills. HEENT: Denies blurred vision, vision changes, or eye pain. Denies hemoptysis CARDIOVASCULAR: Denies chest pain. Denies orthopnea. Denies PND. Denies palpitations RESPIRATORY: Denies shortness of breath. GASTROINTESTINAL: Denies abdominal pain. Denies nausea or vomiting. HEMATOLOGIC: Denies bleeding disorders. GENITOURINARY: Denies any blood in urine. SKIN: Denies pruitis. Denies rash. PHYSICAL EXAM: VITAL SIGNS: Reviewed. GENERAL: Well-developed in no acute distress. HEENT: Head is normocephalic. Pupils are equal, round. Sclerae anicteric. Mucous membranes of the mouth are moist. Neck supple. No JVD or thyromegaly LUNGS: Respirations even and unlabored. Lungs essentially clear to auscultation bilaterally. HEART: Regular rate and rhythm. S1 and S2 heard. ABDOMEN: Soft. Nondistended. Nontender. EXTREMITIES: Normal range of motion. No clubbing or cyanosis. Peripheral pulses intact. No lower extremity edema NEUROLOGIC: Awake and alert. Oriented x 3. ASSESSMENT: Status post fall with possible syncope Moderate coronary artery atherosclerosis, per CT Bilateral internal carotid artery artery stenosis, 70% left and 50 to 69% right Hypertension, uncontrolled Hyperlipidemia Hypothyroidism Obesity: BMI 34.5 PLAN: Obtain 2D echo to assess cardiac structure and function Add aspirin 81 mg daily Increase lisinopril to 10 mg daily for optimal blood pressure control Add IVF at 75cc/hr for 12 hours Continue telemetry monitoring to assess for any arrhythmias Recommend 1 month event monitor from cardiology office at the time of discharge Neurology consulted. Await input and recommendations. MRI pending. Patient to follow-up postdischarge in the office with Dr. Fink. Nurse practitioner note has been reviewed by physician. Signing provider agrees with the documented findings, assessment, and plan of care documented by [employer] PROJECT MANAGER as a scribe. Past Medical History Past Medical History: Hyperlipidemia, Hypertension, Thyroid Disorder Additional Past Medical History / Comment(s): Hypothyroid, diverticular disease, benign colon polyps, bilateral tinnitis, bilateral varicosities per pt. bullous pemphigoid. History of Any Multi-Drug Resistant Organisms: None Reported Past Surgical History: Section, Tubal Ligation Additional Past Surgical History / Comment(s): Colonoscopies/benign polypectomies. bilateral cataract sx. Past Anesthesia/Blood Transfusion Reactions: Motion Sickness, Postoperative Nausea & Vomiting (PONV) Past Psychological History: No Psychological Hx Reported Smoking Status: Never smoker Past Alcohol Use History: None Reported Additional Past Alcohol Use History / Comment(s): Pt resides alone. She uses no assistive devices. She drives. Past Drug Use History: None Reported - Past Family History Mother Family Medical History: Cancer Additional Family Medical History / Comment(s): Mother had skin and esophageal cancer. She at the age of 86yrs. Father Additional Family Medical History / Comment(s): Father had bradycardia and of bradycardia/leg edema at the age of 84yrs. Medications and Allergies Home Medications Medication Instructions Recorded Confirmed Type Levothyroxine Sodium [Synthroid] 88 mcg PO DAILY 06/07/15 12/10/23 History Simvastatin [Zocor] 20 mg PO HS 06/07/15 12/10/23 History Biotin [Biotin Disolve] 10,000 mcg PO DAILY 05/27/20 12/10/23 History Doxycycline Hyclate 100 mg PO DAILY 05/27/20 12/10/23 History Niacinamide 500 mg PO DAILY 05/27/20 12/10/23 History lisinopriL [Prinivil] 5 mg PO DAILY #30 tab 05/29/20 12/10/23 Rx Acetaminophen Tab [Tylenol Tab] 500 mg PO Q6HR PRN 12/10/23 12/10/23 History Ergocalciferol (Vitamin D2) 1,250 mcg PO TU 12/10/23 12/10/23 History [Drisdol (50,000 Iu)] Allergies Allergy/AdvReac Type Severity Reaction Status Date / Time No Known Allergies Allergy Verified 12/10/23 17:43 Physical Exam Vitals: Vital Signs Temp Pulse Pulse Resp BP BP Pulse Ox 12/11/23 02:00 97.6 F 64 19 149/71 97 12/11/23 01:18 96.3 F L 85 17 100/74 95 12/11/23 00:14 66 18 167/94 97 12/10/23 22:58 162/81 12/10/23 21:32 94 18 188/101 98 12/10/23 18:40 85 20 186/91 95 12/10/23 17:33 97.4 F L 81 18 189/99 95 12/10/23 17:06 97.5 F L 82 18 177/95 95 Intake and Output 12/10/23 12/11/23 12/11/23 22:59 06:59 14:59 Output Total 100 250 Balance -100 -250 Output: Urine 100 250 Other: Voiding Method Diaper External Catheter Weight 88.451 kg 88.451 kg Results 12/11/23 04:41 12/11/23 04:41 Cardiac Enzymes 12/10/23 12/10/23 Range/Units 17:11 17:11 AST 25 (14-36) U/L Troponin I <0.012 (0.000-0.034) ng/mL Coagulation 12/10/23 Range/Units 17:11 PT 11.1 (10.0-12.5) sec APTT 22.1 (22.0-30.0) sec CBC 12/10/23 Range/Units 17:11 WBC 8.9 (3.8-10.6) k/uL RBC 5.17 (3.80-5.40) m/uL Hgb 15.2 (11.4-16.0) gm/dL Hct 46.7 H (34.0-46.0) % Plt Count 283 (150-450) k/uL Comprehensive Metabolic Panel 12/10/23 Range/Units 17:11 Sodium 141 (137-145) mmol/L Potassium 3.7 (3.5-5.1) mmol/L Chloride 108 H (98-107) mmol/L Carbon Dioxide 25 (22-30) mmol/L BUN 10 (7-17) mg/dL Creatinine 0.53 (0.52-1.04) mg/dL Glucose 162 H (74-99) mg/dL Calcium 9.1 (8.4-10.2) mg/dL AST 25 (14-36) U/L ALT 17 (4-34) U/L Alkaline Phosphatase 100 (38-126) U/L Total Protein 6.8 (6.3-8.2) g/dL Albumin 4.1 (3.5-5.0) g/dL Current Medications Generic Name Dose Route Start Last Admin Trade Name Freq PRN Reason Stop Dose Admin Acetaminophen 500 mg 12/10/23 22:00 Acetaminophen Tab 500 Mg Tab PO Q6HR PRN Pain or Fever > 100.5 Alprazolam 0.25 mg 12/10/23 22:06 Alprazolam 0.25 Mg Tab PO Q6HR PRN Anxiety Atorvastatin Calcium 40 mg 12/10/23 22:15 12/10/23 22:49 Atorvastatin 40 Mg Tab PO 40 mg HS JOSELIN Administration Calcium Carbonate/Glycine 1,000 mg 12/10/23 22:06 Calcium Carbonate 500 Mg Chewable PO Q4HR PRN Dyspepsia Clopidogrel Bisulfate 75 mg 12/10/23 23:15 12/11/23 00:04 Clopidogrel 75 Mg Tab PO Not Given DAILY JOSELIN Enoxaparin Sodium 40 mg 12/10/23 22:15 12/10/23 22:49 Enoxaparin 40 Mg/0.4 Ml Syringe SQ 40 mg DAILY JOSELIN Administration Ergocalciferol 1,250 mcg 12/17/23 09:00 Ergocalciferol 1,250 Mcg (50,000 Iu) Capsule PO TU [facility] Sodium Chloride 1,000 mls @ 10 mls/hr 12/10/23 19:45 12/10/23 19:54 Saline 0.9% IV 75 mls/hr .Q24H JOSELIN Administration Sodium Chloride 1,000 mls @ 75 mls/hr 12/11/23 08:15 Saline 0.9% IV .[id number] [facility] Lactulose 20 gm 12/11/23 09:00 Lactulose 20 Gm/30 Ml Cup PO DAILY PRN Constipation Levothyroxine Sodium 88 mcg 12/11/23 06:30 12/11/23 06:10 Levothyroxine 88 Mcg Tab PO 88 mcg DAILY@0630 JOSELIN Administration Lisinopril 5 mg 12/11/23 09:00 Lisinopril 5 Mg Tab PO DAILY JOSELIN Melatonin 3 mg 12/10/23 22:06 Melatonin 3 Mg Tablet PO HS PRN Insomnia Morphine Sulfate 4 mg 12/10/23 19:34 Morphine Sulfate 4 Mg/Ml Syringe IV Q4HR PRN Severe Pain (Scale 7 to 10) Naloxone HCl 0.2 mg 12/10/23 19:34 Naloxone 0.4 Mg/Ml 1 Ml Vial IV Q2M PRN Opioid Reversal Niacin 500 mg 12/11/23 09:00 Niacin Tr 500 Mg Caplet PO DAILY [facility] Ondansetron HCl 4 mg 12/10/23 19:34 12/11/23 01:38 Ondansetron 4 Mg/2 Ml Vial IVP 4 mg Q8HR PRN Administration Nausea And Vomiting Intake and Output 12/10/23 12/11/23 12/11/23 22:59 06:59 14:59 Output Total 100 250 Balance -100 -250 Output: Urine 100 250 Other: Voiding Method Diaper External Catheter Weight 88.451 kg 88.451 kg 12/10/23 17:11 12/10/23 17:11
--- NOTE | 2023-12-11 10:41 | MR ---
EXAMINATION TYPE: MR brain wo/w con DATE OF EXAM: 12/11/2023 10:26 AM CLINICAL INDICATION: Female, 78 years old with history of poss cerebellar stroke; PHH, Syncope, possi ble cerebellar stroke. COMPARISON: CT brain 12/10/2023 TECHNIQUE: Multi planar, multi sequence imaging was performed through the brain including: T1, T2, In version recovery, susceptibility weighted imaging and gradient echo imaging and Diffusion weighted im aging. The patient was then given intravenous contrast and multi planar, T1 fat-saturation images wer e obtained. IV Contrast: 8 cc Gadavist FINDINGS: High DWI signal within the right thalamus and right sclerosing splenium with associated low ADC signal compatible with acute/subacute CVA. Blooming artifact within the right thalamus area of r estricted diffusion suggesting petechial hemorrhage. Additional focus of blooming artifact within the left evelin just off midline suggestive of prior microhemorrhage. Right cerebellar hemisphere abdomina l venous anomaly. Post contrast imaging coronal series 703 image 25 . Remote injury to the right vitaliy etal lobe with gliosis changes series 601 image 21. Mild cerebral atrophy with proportional dilation of ventricular system. Intracranial arterial flow voids are maintained. Midline structures show no a bnormality. Scattered foci of high T2 signal intensity are seen within the periventricular white ray er. . After administration of gadolinium, no abnormal enhancement is seen. The bone marrow signal is within normal limits. Paranasal sinuses and mastoid air cells: Mild scattered paranasal sinus disease. Visualized orbits: Bilateral aphakia IMPRESSION: 1. Acute/subacute CVA involving the right thalamus and right splenium of the corpus callosum. Petechi al hemorrhage within the right thalamus suggested on susceptibility weighted imaging. 2. Nonspecific white matter changes, likely related to small vessel ischemic disease. [facility], , 12/11/2023 10:39 AM
[2023-12-11] MEDS: ACETAMINOPHEN TAB 500 MG TAB PO PRN (15:01)
--- NOTE | 2023-12-11 15:06 | P.GSCN ---
History of Present Illness Consult date: 12/11/23 Reason for Consult: Carotid stenosis, stroke Requesting physician: Mauricio Escobar History of present illness: A pleasant 78-year-old white female who presented to the emergency department with multiple syncopal episodes. States she has had multiple syncopal episodes since this past Saturday. She states that it had gotten so bad that she had to crawl across the floor. She denied any weakness in her right or left extre mities. No visual disturbances or difficulty with her speech. She had a brain CT with no acute findings, she underwent MRI of the brain that showed right acute subacute stroke. She had a carotid duplex done with moderate stenosis of bilateral carotid arteries left greater than right. Vascular surgery was consulted for carotid stenosis with acute stroke. Patient states she has a past medical history including hypertension, hyperlipidemia, hypothyroidism and history of carotid stenosis. She has followed in the past with Dr. Cheung for carotid stenosis however now never followed up. She states she still feels somewhat dizzy, lying in bed. No shortness of breath, chest pain, abdominal p ain, nausea or vomiting. No other focal deficits such as vision loss, difficulty speaking or extremity weakness. Review of Systems A 14 point review systems was completed all pertinent positives and negatives as stated in the HPI. Past Medical History Past Medical History: Hyperlipidemia, Hypertension, Thyroid Disorder Additional Past Medical History / Comment(s): Hypothyroid, diverticular disease, benign colon polyps, bilateral tinnitis, bilateral varicosities per pt. bullous pemphigoid. History of Any Multi-Drug Resistant Organisms: None Reported Past Surgical History: Section, Tubal Ligation Additional Past Surgical History / Comment(s): Colonoscopies/benign polypectomies. bilateral cataract sx. Past Anesthesia/Blood Transfusion Reactions: Motion Sickness, Postoperative Nausea & Vomiting (PONV) Past Psychological History: No Psychological Hx Reported Smoking Status: Never smoker Past Alcohol Use History: None Reported Additional Past Alcohol Use History / Comment(s): Pt resides alone. She uses no assistive devices. She drives. Past Drug Use History: None Reported - Past Family History Mother Family Medical History: Cancer Additional Family Medical History / Comment(s): Mother had skin and esophageal cancer. She at the age of 86yrs. Father Additional Family Medical History / Comment(s): Father had bradycardia and of bradycardia/leg edema at the age of 84yrs. Medications and Allergies Home Medications Medication Instructions Recorded Confirmed Type Levothyroxine Sodium [Synthroid] 88 mcg PO DAILY 06/07/15 12/10/23 History Simvastatin [Zocor] 20 mg PO HS 06/07/15 12/10/23 History Biotin [Biotin Disolve] 10,000 mcg PO DAILY 05/27/20 12/10/23 History Doxycycline Hyclate 100 mg PO DAILY 05/27/20 12/10/23 History Niacinamide 500 mg PO DAILY 05/27/20 12/10/23 History lisinopriL [Prinivil] 5 mg PO DAILY #30 tab 05/29/20 12/10/23 Rx Acetaminophen Tab [Tylenol Tab] 500 mg PO Q6HR PRN 12/10/23 12/10/23 History Ergocalciferol (Vitamin D2) 1,250 mcg PO TU 12/10/23 12/10/23 History [Drisdol (50,000 Iu)] Allergies Allergy/AdvReac Type Severity Reaction Status Date / Time No Known Allergies Allergy Verified 12/10/23 17:43 Surgical - Exam Vital Signs Temp Pulse Resp BP Pulse Ox 97.5 F L 82 18 177/95 95 12/10/23 17:06 12/10/23 17:06 12/10/23 17:06 12/10/23 17:06 12/10/23 17:06 General appearance: The patient is alert, oriented, appears in no acute distress. HET: Head is normocephalic and atraumatic. Pupils are equal and reactive. Neck: Supple. No audible carotid bruit. Heart: Regular. Lungs: Equal expansion, normal respiratory effort. Abdomen: Soft, nontender, nondistended. Extremities: Normal skin color and turgor. Neurological: No focal deficits. Strength and sensation are grossly intact. Results - Labs 12/11/23 04:41 12/11/23 04:41 Abnormal Lab Results - Last 24 Hours (Table) 12/10/23 12/10/23 12/10/23 Range/Units 17:11 17:11 17:11 Hct 46.7 H (34.0-46.0) % MCHC (32.0-37.0) g/dL Neutrophils # (1.80-7.70) X 10*3/uL Lymphocytes # 0.9 L (1.0-4.8) k/uL Eosinophils # (0.04-0.35) X 10*3/uL D-Dimer 1.33 H (<0.60) mg/L FEU Chloride 108 H (98-107) mmol/L Anion Gap (4.00-12.00) mmol/L Glucose 162 H (74-99) mg/dL Phosphorus 2.4 L (2.5-4.5) mg/dL Ur Specific [place] (1.001-1.035) Urine Protein (Negative) 12/11/23 12/11/23 12/11/23 Range/Units 00:14 04:41 04:41 Hct (34.0-46.0) % MCHC 31.8 L (32.0-37.0) g/dL Neutrophils # 8.12 H (1.80-7.70) X 10*3/uL Lymphocytes # (1.0-4.8) k/uL Eosinophils # 0 L (0.04-0.35) X 10*3/uL D-Dimer (<0.60) mg/L FEU Chloride (98-107) mmol/L Anion Gap 12.70 H (4.00-12.00) mmol/L Glucose 127 H (74-99) mg/dL Phosphorus (2.5-4.5) mg/dL Ur Specific [place] 1.046 H (1.001-1.035) Urine Protein Trace H (Negative) Diabetes panel 12/10/23 12/11/23 Range/Units 17:11 04:41 Sodium 141 141 (137-145) mmol/L Potassium 3.7 4.1 (3.5-5.1) mmol/L Chloride 108 H 106 (98-107) mmol/L Carbon Dioxide 25 22.3 (22-30) mmol/L BUN 10 9.1 (7-17) mg/dL Creatinine 0.53 0.6 (0.52-1.04) mg/dL Glucose 162 H 127 H (74-99) mg/dL Calcium 9.1 9.0 (8.4-10.2) mg/dL AST 25 20 (14-36) U/L ALT 17 14 (4-34) U/L Alkaline Phosphatase 100 86 (38-126) U/L Total Protein 6.8 6.4 (6.3-8.2) g/dL Albumin 4.1 4.0 (3.5-5.0) g/dL Calcium panel 12/10/23 12/11/23 Range/Units 17:11 04:41 Calcium 9.1 9.0 (8.4-10.2) mg/dL Phosphorus 2.4 L 3.6 (2.5-4.5) mg/dL Albumin 4.1 4.0 (3.5-5.0) g/dL Pituitary panel 12/10/23 12/11/23 Range/Units 17:11 04:41 Sodium 141 141 (137-145) mmol/L Potassium 3.7 4.1 (3.5-5.1) mmol/L Chloride 108 H 106 (98-107) mmol/L Carbon Dioxide 25 22.3 (22-30) mmol/L BUN 10 9.1 (7-17) mg/dL Creatinine 0.53 0.6 (0.52-1.04) mg/dL Glucose 162 H 127 H (74-99) mg/dL Calcium 9.1 9.0 (8.4-10.2) mg/dL Adrenal panel 12/10/23 12/11/23 Range/Units 17:11 04:41 Sodium 141 141 (137-145) mmol/L Potassium 3.7 4.1 (3.5-5.1) mmol/L Chloride 108 H 106 (98-107) mmol/L Carbon Dioxide 25 22.3 (22-30) mmol/L BUN 10 9.1 (7-17) mg/dL Creatinine 0.53 0.6 (0.52-1.04) mg/dL Glucose 162 H 127 H (74-99) mg/dL Calcium 9.1 9.0 (8.4-10.2) mg/dL Total Bilirubin 0.5 0.3 (0.2-1.3) mg/dL AST 25 20 (14-36) U/L ALT 17 14 (4-34) U/L Alkaline Phosphatase 100 86 (38-126) U/L Total Protein 6.8 6.4 (6.3-8.2) g/dL Albumin 4.1 4.0 (3.5-5.0) g/dL - Imaging Comments: Carotid duplex reports measurements suggest severe greater than 70% proximal left ICA stenosis and moderate 50 to 69% proximal right ICA stenosis Brain MRI reports acute/subacute CVA involving the right thalamus and right splenium of the corpus callosum. Petechial hemorrhage within the right thalamus suggested. Nonspecific white matter changes, likely related to small vessel ischemic disease Brain CT reports no evidence of acute intracranial pathology Assessment and Plan Assessment: 1. Bilateral internal carotid artery stenosis 2. Acute/subacute CVA involving right thalamus and right splenium of the corpus callosum with petechial hemorrhage within the right thalamus 3. Hypertension 4. Hyperlipidemia 5. Hypothyroid Plan: 1. CT angiogram head and neck ordered 2. Continue with atorvastatin, aspirin 81 mg and Plavix 75 mg daily 3. Continue with recommendations and workup from neurology 4. Appreciate recommendations from cardiology 5. Further recommendations forthcoming from vascular surgeon 6. Recommend PT/OT Thank you for this consultation, we will continue to follow. Dr. Tray Goyal I agree with the dictator's note, documented as a scribe by Bailee Gilmore.
--- NOTE | 2023-12-11 15:31 | CT ---
EXAMINATION TYPE: CT angio head neck CT DLP: 324.7 mGycm, Automated exposure control for dose reduction was used. DATE OF EXAM: 12/11/2023 3:10 PM COMPARISON: 12/11/2023. CLINICAL INDICATION: Female, 78 years old with history of Acute stroke;, cva TECHNIQUE: Axially acquired helical CT angiogram of the head and neck was obtained with contrast. Axi al images are supplemented with 3D reconstructions and MIP images which were post-processed at an in dependent workstation. NASCET criteria used. Contrast used:65 mL of Isovue 370 with IV Contrast, Oral contrast used: None. FINDINGS: CTA HEAD: No evidence of acute intracranial hemorrhage, mass effect, or midline shift. The ventricles, sulci, a nd cisterns are unremarkable. Acute/subacute CVA involving the right thalamus right corpus callosum o f the splenium on the right is less well appreciated. Bilaterally aphakia. Vertebral arteries: The vertebral arteries are patent. Vertebral artery dominance: Right Basilar artery: The basilar artery is intact. The basilar artery bifurcation is normal. Internal Carotid arteries: The cervical, petrous, cavernous and supraclinoid segments are normal. [place]SA: Patent with no evidence of aneurysm. ACOM: Present without evidence of aneurysm. MCA: Patent with no evidence of aneurysm. RRTS: Patent with no evidence of aneurysm. PCOM: Hypoplastic bilaterally. Dural sinuses: Patent. CTA NECK: Right Carotid System: The common carotid and external carotid arteries are patent. Calcified plaque at the bifurcation with up to 62% stenosis.. The rest of the internal carotid artery is patent. Left Carotid System: The common carotid and external carotid arteries are patent. Noncalcified plaque at the left carotid bifurcation with 71% stenosis. Series 17 image 18.. The rest of the internal carotid artery is patent . Vertebral arteries are patent without evidence hemodynamically significant stenosis. There is a three-vessel aortic arch. The origins of the great vessels are patent. No evidence of hemo dynamically significant stenosis. Upper thorax: Moderate degeneration changes of the spine mild osteophyte formation disc space narrowi ng and facet joint arthropathy. IMPRESSION: 1. Noncalcified plaque at the left carotid bifurcation with 71% stenosis. 2. Right carotid bifurcation calcified plaque with 63% stenosis. 3. No evidence of dissection of the cervical internal carotid arteries 4. No evidence of intracranial high-grade stenosis or intracranial aneurysm. [facility], , 12/11/2023 3:29 PM
--- NOTE | 2023-12-11 15:58 | P.CNNES ---
History of Present Illness Consult date: 12/11/23 Requesting physician: Mookie Verduzco Reason for Consult: poss cerebellar stroke History of Present Illness: This is a 78-year-old woman who present emergency department because of dizziness, left leg weakness. Patient stated her symptoms began when she woke up around 730am yesterday and she was dizzy as well as she felt that her left leg was weak. Because of her dizziness she was unsteady walking as well as because of her leg weakness and fell she feels that she hit her head but denies any loss of consciousness. Last normal stated was this Saturday night at 9pm. She denies any numbness or speech difficulty. She denies any history of stroke. She denies any further dizziness. Denies any nausea any vomiting. Denies any history of stroke or TIA in the past. Patient states she is not on any antiplatelet. Denies of any A-fib. She does have underlying history of hypertension. Some of the workup during this hospital visit consisted of: CT of the head is reported as no evidence of acute intracranial pathology. MRI of the brain is reported as acute/subacute CVA involving the right thalamus and right splenium of the corpus callosum. Petechial hemorrhage within the right thalamus suggestive and susceptibility weighted image. I reviewed the MRI and agree with the report. Carotid duplex is reported as measurements suggest a severe greater than 70% proximal left ICA. Measurement also suggest moderate 50-69 proximal right ICA. Review of Systems The positive and negative as per HPI. Past Medical History Past Medical History: Hyperlipidemia, Hypertension, Thyroid Disorder Additional Past Medical History / Comment(s): Hypothyroid, diverticular disease, benign colon polyps, bilateral tinnitis, bilateral varicosities per pt. bullous pemphigoid. History of Any Multi-Drug Resistant Organisms: None Reported Past Surgical History: Section, Tubal Ligation Additional Past Surgical History / Comment(s): Colonoscopies/benign polypectomies. bilateral cataract sx. Past Anesthesia/Blood Transfusion Reactions: Motion Sickness, Postoperative Nausea & Vomiting (PONV) Past Psychological History: No Psychological Hx Reported Smoking Status: Never smoker Past Alcohol Use History: None Reported Additional Past Alcohol Use History / Comment(s): Pt resides alone. She uses no assistive devices. She drives. Past Drug Use History: None Reported - Past Family History Mother Family Medical History: Cancer Additional Family Medical History / Comment(s): Mother had skin and esophageal cancer. She at the age of 86yrs. Father Additional Family Medical History / Comment(s): Father had bradycardia and of bradycardia/leg edema at the age of 84yrs. Medications and Allergies Home Medications Medication Instructions Recorded Confirmed Type Levothyroxine Sodium [Synthroid] 88 mcg PO DAILY 06/07/15 12/10/23 History Simvastatin [Zocor] 20 mg PO HS 06/07/15 12/10/23 History Biotin [Biotin Disolve] 10,000 mcg PO DAILY 05/27/20 12/10/23 History Doxycycline Hyclate 100 mg PO DAILY 05/27/20 12/10/23 History Niacinamide 500 mg PO DAILY 05/27/20 12/10/23 History lisinopriL [Prinivil] 5 mg PO DAILY #30 tab 05/29/20 12/10/23 Rx Acetaminophen Tab [Tylenol Tab] 500 mg PO Q6HR PRN 12/10/23 12/10/23 History Ergocalciferol (Vitamin D2) 1,250 mcg PO TU 12/10/23 12/10/23 History [Drisdol (50,000 Iu)] Allergies Allergy/AdvReac Type Severity Reaction Status Date / Time No Known Allergies Allergy Verified 12/10/23 17:43 Physical Examination - Vital Signs Vital Signs: Vital Signs Temp Pulse Pulse Pulse Resp BP BP 12/11/23 11:34 59 L 18 12/11/23 08:28 12/11/23 08:00 18 12/11/23 07:00 97.7 F 75 18 12/11/23 02:00 97.6 F 64 19 149/71 12/11/23 01:18 96.3 F L 85 17 100/74 12/11/23 00:14 66 18 167/94 12/10/23 22:58 162/81 12/10/23 21:32 94 18 188/101 12/10/23 18:40 85 20 186/91 12/10/23 17:33 97.4 F L 81 18 189/99 12/10/23 17:06 97.5 F L 82 18 177/95 BP Pulse Ox 12/11/23 11:34 172/84 99 12/11/23 08:28 95 12/11/23 08:00 12/11/23 07:00 170/88 99 10/23/24 02:00 97 12/11/23 01:18 95 12/11/23 00:14 97 12/10/23 22:58 12/10/23 21:32 98 12/10/23 18:40 95 12/10/23 17:33 95 12/10/23 17:06 95 Intake and Output 12/11/23 12/11/23 12/11/23 06:59 14:59 22:59 Intake Total 598 Output Total 250 Balance -250 598 Intake: Oral 598 Output: Urine 250 Other: Voiding Method Diaper Diaper External Catheter External Catheter Weight 88.451 kg GENERAL: The patient is lying in bed and is not in acute distress. NEUROLOGICAL: Higher mental function: The patient is awake, alert, oriented to self, place and month but stated the year is 1923. Patient is following commands. No aphasia and no neglect. Cranial nerves: The pupils are round, equal and reactive to light and accommodation. Visual grijalva are full to confrontation throughout. Extraocular movement is intact no nystagmus is noted. Facial sensation is normal to touch throughout. The facial strength is left nasolabial flattening. Hearing is moderately decreased bilaterally to hand rub. Tongue is midline and moved [id number] without any difficulty. No dysarthria is noted. Shoulder shrug is normal bilaterally. Motor: The strength is left arm/forearm is 4+. Otherwise over 5 throughout. Normal tone and bulk. Cerebellum: Normal finger to nose bilaterally. Sensation: Sensation is normal to touch throughout. Reflexes (right/left): 2+ throughout. Plantars are downgoing bilaterally. Results - Laboratory Findings CBC and BMP: 12/11/23 04:41 12/11/23 04:41 Abnormal Lab Findings: Abnormal Labs 12/10/23 12/10/23 12/10/23 17:11 17:11 17:11 Hct 46.7 H MCHC Neutrophils # Lymphocytes # 0.9 L Eosinophils # D-Dimer 1.33 H Chloride 108 H Anion Gap Glucose 162 H Phosphorus 2.4 L Ur Specific [place] Urine Protein 12/11/23 12/11/23 12/11/23 00:14 04:41 04:41 Hct MCHC 31.8 L Neutrophils # 8.12 H Lymphocytes # Eosinophils # 0 L D-Dimer Chloride Anion Gap 12.70 H Glucose 127 H Phosphorus Ur Specific [place] 1.046 H Urine Protein Trace H Assessment and Plan Assessment: This is an 78-year-old woman who present emergency department because of dizziness left leg weakness, a fall. She had a MRI of the brain which showed stroke over minutes and splenium of corpus callosum. There is also petechial hemorrhage in the right thalamus. Acute to subacute stroke (right thalamus and splenium of corpus collasum). On examination patient had left nasal labial flattening, left arm weakness. No IV thrombolytic since outside the window and the risk by the benefit. Unsure exact etiology. Patient has right ICA stenosis of about 50 to 69%. Asymptomatic left ICA stenosis of about 70% greater on carotid duplex Hypertension urgency Underlying history of hypertension Hyperlipidemia Hypothyroidism Plan: I will get a repeat CT of the head rule out any bleed especially since there is petechial hemorrhages seen on the right thalamus and MRI. Patient was started on aspirin 81 mg daily by cardiology team and primary team placed her on Plavix 75 mg daily. Prior to this patient was not on any antiplatelet. Primary has started on Lipitor 40 mg nightly for secondary stroke prophylaxis I consulted vascular surgery team. Ordered lipid panel. 2D echo was ordered and is pending Continue neurochecks Cardiac monitoring PT OT and [employer] DEPARTMENT HEAD are consulted As stated earlier cardiology is on board. For DVT prophylaxis patient is on Lovenox. Will defer the rest of the medical management to primary and other specialist. Plan discussed with the patient and her nurse. Thank for the consultation. Time with Patient: Greater than 30
[2023-12-11] MEDS: amLODIPine 5 MG TAB PO SCH (18:49)
--- NOTE | 2023-12-11 18:49 | P.PN ---
Progress Note - Text Progress Note Date: 12/11/23 Chief Complaint: Sudden fall This is a pleasant 78-year-old patient, follows with Dr. Wells. Stable medical conditions include hypertension, hyperlipidemia, hypothyroid, diverticulosis, bilateral tinnitus, lower extremity varicosities. Patient lives alone. This morning around 7 AM had a slight headache. She went around to get some breakfast and sat down. When she got up for just felt very weak on her legs and went on the ground. She called her son. He thought her speech was a bit off. Patient is accompanied by her daughter Cassandra in the ER. She gets dizzy when she moves about. Has not really walked since then. No change in her vision. Patient does take doxycycline for bullous pemphigoid December 10: Patient seen this morning. Had some left-sided weakness. Some improvement in speech. MRI of the brain did show a t right thalamic and right splenium of the corpus callosum infarct. Petechial hemorrhage within the right thalamus. Some small vessel disease. Vascular surgery was consulted because of some carotid stenosis on the carotid Doppler. An angio CT was done. Patient moved to the telemetry floor. Blood pressure is running high. Amlodipine 5 mg a day being started. Stop IV fluids The Active Medications Acetaminophen (Acetaminophen Tab 500 Mg Tab) 500 mg PO Q6HR PRN PRN Reason: Pain or Fever > 100.5 Last Admin: 12/11/23 15:01 Dose: 500 mg Alprazolam (Alprazolam 0.25 Mg Tab) 0.25 mg PO Q6HR PRN PRN Reason: Anxiety Aspirin (Aspirin 81 Mg) 81 mg PO DAILY [facility] Last Admin: 12/11/23 09:07 Dose: 81 mg Atorvastatin Calcium (Atorvastatin 40 Mg Tab) 40 mg PO HS [facility] Last Admin: 12/10/23 22:49 Dose: 40 mg Calcium Carbonate/Glycine (Calcium Carbonate 500 Mg Chewable) 1,000 mg PO Q4HR PRN PRN Reason: Dyspepsia Clopidogrel Bisulfate (Clopidogrel 75 Mg Tab) 75 mg PO DAILY [facility] Last Admin: 12/11/23 09:07 Dose: 75 mg Doxycycline Monohydrate (Doxycycline 100 Mg Cap) 100 mg PO DAILY [facility] Last Admin: 12/11/23 10:00 Dose: 100 mg Enoxaparin Sodium (Enoxaparin 40 Mg/0.4 Ml Syringe) 40 mg SQ DAILY [facility] Last Admin: 12/11/23 09:07 Dose: 40 mg Ergocalciferol (Ergocalciferol 1,250 Mcg (50,000 Iu) Capsule) 1,250 mcg PO [facility] Sodium Chloride (Saline 0.9%) 1,000 mls @ 75 mls/hr IV .[id number] [facility] Stop: 12/11/23 20:14 Lactulose (Lactulose 20 Gm/30 Ml Cup) 20 gm PO DAILY PRN PRN Reason: Constipation Levothyroxine Sodium (Levothyroxine 88 Mcg Tab) 88 mcg PO DAILY@0630 [facility] Last Admin: 12/11/23 06:10 Dose: 88 mcg Lisinopril (Lisinopril 10 Mg Tab) 10 mg PO DAILY [facility] Last Admin: 12/11/23 09:07 Dose: 10 mg Melatonin (Melatonin 3 Mg Tablet) 3 mg PO HS PRN PRN Reason: Insomnia Morphine Sulfate (Morphine Sulfate 4 Mg/Ml Syringe) 4 mg IV Q4HR PRN PRN Reason: Severe Pain (Scale 7 to 10) Naloxone HCl (Naloxone 0.4 Mg/Ml 1 Ml Vial) 0.2 mg IV Q2M PRN PRN Reason: Opioid Reversal Niacin (Niacin Tr 500 Mg Caplet) 500 mg PO DAILY [facility] Last Admin: 12/11/23 09:07 Dose: 500 mg Ondansetron HCl (Ondansetron 4 Mg/2 Ml Vial) 4 mg IVP Q8HR PRN PRN Reason: Nausea And Vomiting Last Admin: 12/11/23 12:22 Dose: 4 mg Social history: Lives alone. No smoking or alcohol. Physical examination: VITAL SIGNS: 97.8, 67, 16, 191 x 85, 95% room air GENERAL: BMI 34.5, reclining in bed awake not in distress. EYES: Pupils equal. Conjunctiva sari l. HEENT: External appearance of nose and ears normal, oral cavity grossly normal. NECK: JVD not raised; masses not palpable. HEART: First and second heart sounds are normal; no edema. LUNGS: Respiratory rate normal; clear to auscultation. ABDOMEN: Soft, nontender, liver spleen not palpable, no masses palpable. PSYCH: Alert and oriented x3; mood and affect sari l. MUSCULOSKELETAL:No Clubbing/cyanosis;muscles-grossly intact NEUROLOGICAL: [Very slight facial asymmetry. Mild slightly pulled to the right. No nystagmus patient words are stretched out. Left past-pointing and left dysdiadochokinesia. Power sensation grossly intact LYMPHATICS: No lymph nodes palpable in the axilla and neck INVESTIGATIONS, reviewed in the clinical context: CT angiogram of the brain: Right carotid bifurcation calcified plaque with 63 Kimberly stenosis. Noncalcified plaque at the left carotid bifurcation with 71% stenosis. MRI brain: Acute/subacute CVA involving the right thalamus and the right splenium of the corpus callosum. Petechial hemorrhage within the right thalamus. Some nonspecific white matter changes. Carotid Doppler: Severe greater than 70% proximal left ICA stenosis. Moderate 50-69% proximal right ICA stenosis. White count 8.9 hemoglobin 15.2 platelets 283 sodium 141 potassium 3.7 creat inine 0.53 troponin I less than 0.012 proBNP 220 EKG tracing personally reviewed by me-normal sinus rhythm Assessment plan: -Acute CVA involving the right thalamus and the right splenium of the corpus callosum with petechial hemorrhage within the right thalamus.. Aspirin. Lipitor. Plavix. . Neurochecks every 4 hours. Neurology following MRI results above. -Acute gait dysfunction secondary to above with left-sided weakness PT OT. -Initial dysarthria from stroke. Improved. Seen by speech therapist -Severe greater than 70% proximal left ICA stenosis, moderate 50-6 9% proximal right ICA stenosis.: On carotid Doppler Vascular surgery consulted. Patient does follow-up with Dr. Cheung outpatient -Essential hypertension, uncontrolled beyond 24 hours of stroke.: Controlled Add amlodipine 5 mg a day. Zestril 10 mg a day -Hypothyroid Synthroid 88 mcg a day -Hypercholesterolemia Lipitor 40 mg nightly -Primary osteoarthritis Pain medication as needed -Full code DC IV fluids. Add amlodipine for blood pressure. PT OT. Follow-up with vascular. Past Medical History Past Medical History: Hyperlipidemia, Hypertension, Thyroid Disorder Additional Past Medical History / Comment(s): Hypothyroid, diverticular disease, benign colon polyps, bilateral tinnitis, bilateral varicosities per pt. History of Any Multi-Drug Resistant Organisms: None Reported Past Surgical History: Section, Tubal Ligation Additional Past Surgical History / Comment(s): Colonoscopies/benign polypectomies. Past Anesthesia/Blood Transfusion Reactions: Motion Sickness, Postoperative Nausea & Vomiting (PONV) Past Psychological History: No Psychological Hx Reported Smoking Status: Never smoker Past Alcohol Use History: None Reported Past Drug Use History: None Reported
[2023-12-11] MEDS: SODIUM CHLORIDE 0.9% 1,000 ML IV SCH (21:19)
[2023-12-12 06:42] LABS: Chol/HDL Ratio 2.69 Ratio; LDL Cholesterol,Calculated 97.5 mg/dL (0.0-131.0); VLDL Calculation 18.82 mg/dL (5.00-40.00)
--- NOTE | 2023-12-12 07:50 | CT ---
EXAMINATION TYPE: CT brain wo con DATE OF EXAM: 12/12/2023 COMPARISON: MRI brain 12/11/[address] brain 12/10/2023 HISTORY: Abn MRI CT DLP: 1095.[address] of the brain was performed. The ventricles, basal cisterns and sulci overlying the cerebral convexities demonstrate mild enlargem ent. There is no evidence for intracranial hemorrhage or sulcal effacement. There is decreased attenuation about the periventricular white matter and deep white matter of both c erebral hemispheres, compatible with chronic small vessel ischemia. Differential diagnosis does inclu de demyelination. No mass effects are seen.No midline shift. Osseous calvarium is intact. If symptoms persist consider MRI. IMPRESSION: 1. Age related atrophic and chronic small vessel ischemic change without acute intracranial process s een at this time. Petechial hemorrhage seen on MRI is not identified at this time on CT. [facility], , 12/12/2023 7:47 AM
--- NOTE | 2023-12-12 08:32 | CA ---
Transthoracic Echo Report Name: Elizabeth Rouse Age: 78 Gender: F : 1945 Exam Date: 12/11/2023 08:18 Exam Location: [facility] Ht (in): 63 Wt (lb): 195 Ordering Physician: Mookie Verduzco MD Attending/Referring Phys: [employer] Manager Marce Sotomayor RDCS Procedure CPT: Indications: r/o thrombus/PFO Cardiac Hx: Technical Quality: Fair Contrast 1: Agitated Saline Total Dose (mL): 2 Contrast 2: Total Dose (mL): MEASUREMENTS (Male / Female) Normal Values 2D ECHO LV Diastolic Diameter PLAX 4.0 cm 4.2 - 5.9 / 3.9 - 5.3 cm LV Systolic Diameter PLAX 2.7 cm IVS Diastolic Thickness 0.8 cm 0.6 - 1.0 / 0.6 - 0.9 cm LVPW Diastolic Thickness 1.3 cm 0.6 - 1.0 / 0.6 - 0.9 cm LV Relative Wall Thickness 0.5 LVOT Diameter 2.0 cm LA Volume 43.7 cm??? 18 - 58 / 22 - 52 cm??? LA Volume Index 21.6 cm???/m??? 16 - 28 cm???/m??? Ascending Aorta Diameter 3.4 cm DOPPLER AV Peak Velocity 117.4 cm/s AV Peak Gradient 5.5 mmHg AV Mean Velocity 80.3 cm/s AV Mean Gradient 2.9 mmHg AV Velocity Time Integral 27.9 cm LVOT Peak Velocity 79.5 cm/s LVOT Peak Gradient 2.5 mmHg LVOT Velocity Time Integral 16.0 cm LVOT Stroke Volume 48.8 cm??? LVOT Stroke Volume Index 25.5 ml/m??? LVOT Cardiac Index 1617.4 cm???/min???m??? AV Area Cont Eq vti 1.7 cm??? AV Area Cont Eq pk 2.1 cm??? MV Area PHT 4.1 cm??? Mitral E Point Velocity 56.3 cm/s Mitral A Point Velocity 62.6 cm/s Mitral E to A Ratio 0.9 MV Deceleration Time 185.2 ms TR Peak Velocity 256.7 cm/s TR Peak Gradient 26.4 mmHg Right Atrial Pressure 5.0 mmHg Pulmonary Artery Systolic Pressu 31.4 mmHg Right Ventricular Systolic Press 31.4 mmHg PV Peak Velocity 63.6 cm/s PV Peak Gradient 1.6 mmHg FINDINGS Left Ventricle Left ventricular ejection fraction is estimated at 55-60 %. Mildly increased posterior wall thickness. Left ventricular cavity size normal. No obvious regional wall motion abnormalities. Right Ventricle Normal right ventricular size and function. Right ventricular systolic pressure within normal limits. Right Atrium Right atrium not well visualized. Negative agitated saline bubble study for right to left shunt. Left Atrium Normal left atrial size. Mitral Valve Structurally normal mitral valve. No evidence for mitral valve prolapse. No mitral stenosis. Trace mitral regurgitation. Aortic Valve Trileaflet aortic valve. No aortic stenosis. Mild aortic regurgitation. Tricuspid Valve Structurally normal tricuspid valve. No tricuspid stenosis. Mild tricuspid regurgitation. Pulmonic Valve Structurally normal pulmonic valve. No pulmonic stenosis. Trace pulmonic regurgitation. Pericardium No pericardial effusion. Prominent epicardial fat. Aorta Normal size aortic root and proximal ascending aorta. CONCLUSIONS Normal LV size and systolic function. Mild aortic regurgitation, minimal mitral regurgitation, mild tricuspid regurgitation. There is a epicardial fat pad noted. Small effusion cannot be excluded. Bubble study was negative for shunt Previewed by: Dr. Reshma Fink MD (Electronically Signed) Final Date: 12 December 2023 08:31
--- NOTE | 2023-12-12 13:09 | P.PN ---
Subjective Progress Note Date: 12/12/23 Principal diagnosis: Carotid stenosis Patient is seen and examined today as a follow-up. No focal deficits. CT angiogram reports noncalcified plaque at the left carotid bifurcation with 71% stenosis. Right carotid bifurcation calcified plaque with 63% stenosis. No evidence of dissection of the cervical internal carotid arteries. No evidence of intracranial high-grade stenosis or intracranial aneurysm. Objective - Vital Signs Vital signs: Vital Signs Temp 97.0 F L 12/12/23 07:46 Pulse 77 12/12/23 07:46 Resp 15 12/12/23 07:46 BP 165/76 12/12/23 07:46 Pulse Ox 96 12/12/23 04:00 FiO2 Intake & Output 12/11/23 12/12/23 12/12/23 18:59 06:59 18:59 Intake Total 598 358 Output Total 400 750 200 Balance 198 -750 158 Weight 84 kg Intake: Oral 598 358 Output: Urine 400 750 200 Other: Voiding Method Diaper Diaper External Catheter External Catheter External Catheter - Exam General appearance: The patient is alert, oriented, appears in no acute distress. HET: Head is normocephalic and atraumatic. Pupils are equal and reactive. Neck: Supple. Heart: Regular. Lungs: Equal expansion, normal respiratory effort. Abdomen: Soft, nontender, nondistended. Extremities: Normal skin color and turgor. Neurological: No focal deficits. Strength and sensation are grossly intact. - Labs CBC & Chem 7: 12/11/23 04:41 12/11/23 04:41 Labs: Abnormal Lab Results - Last 24 Hours (Table) 12/11/23 Range/Units 04:41 HDL Cholesterol 68.70 H (40.00-60.00) mg/dL Assessment and Plan Assessment: 1. Bilateral internal carotid artery stenosis 2. Acute/subacute CVA involving right thalamus and right splenium of the corpus callosum with petechial hemorrhage within the right thalamus 3. Hypertension 4. Hyperlipidemia 5. Hypothyroid Plan: 1. CT angiogram head and neck reviewed 2. Continue with atorvastatin, aspirin 81 mg and Plavix 75 mg daily 3. Discussed patient with neurology, will recommend outpatient follow-up with Dr. Cheung and schedule outpatient carotid surgical intervention Thank you for this consultation, patient is cleared from vascular surgery for discharge. The impression and plan of care has been dictated as directed. Dr. House I performed a history and examination of this patient, discussed the same with the dictator. I agree with the dictator's note ,documented as a scribe. Any additional findings or plans will be noted.
--- NOTE | 2023-12-12 13:32 | P.PN ---
Subjective Progress Note Date: 12/12/23 HISTORY OF PRESENT ILLNESS: This is a 78-year-old female with a past medical history significant for hy pertension, hyperlipidemia, and hypothyroidism. Patient does not follow with a academic advising director. We have been asked to see the patient in consultation for syncope. Patient examined at the bedside. Patient states yesterday she was walking in her house when she began to feel unsteady. She states that she did lose her balance and fell to the ground. She denied having any chest pain or pressure. Denied any shortness of breath. She believes that she lost consciousness for a very short period of time. There was no one home with her at the time this happened. Patient denies having previous episodes of syncope. Patient's blood pressure blood pressure elevated this morning with a reading of 170/88. DIAGNOSTICS: - EKG reveals sinus mechanism with no signs of acute ischemia - Chest CT: Negative for pulmonary embolism. Bilateral lower lobe pulmonary nodules. Cardiomegaly with moderate coronary artery atherosclerosis. - CT brain: Negative for acute process - Carotid Doppler: Severe greater than 70% proximal left ICA stenosis and moderate 50 to 69% proximal right ICA stenosis. - Laboratory data: WBC 9.61. Hemoglobin 14.5. Platelet count 283. D-dimer 1.33. Sodium 141. Potassium 4.1. BUN 9.1. Creatinine 0.6. Troponin negative x 1. proBNP 220. - Current home cardiac medications include lisinopril 5 mg daily, simvastatin 20 mg at night 12/11 Patient is seen today on the cardiac stepdown unit. She denies having any chest pain no palpitations. She has been a sinus rhythm on telemetry. MRI of the brain revealed acute/subacute CVA involving the right thalamus and right splenium of the corpus callosum. Petechial hemorrhage Repeat CT of the brain showed age-related atrophy and chronic small vessel ischemic change without acute intracranial process. Petechial hemorrhage seen on MRI is not identified on the CT. CTA of the head and neck revealed noncalcified plaque at the left carotid bifurcation with 71% stenosis, right carotid bifurcation 63% stenosis. No evidence of dissection of the cervical internal carotid arteries. No evidence of intracranial high-grade stenosis or intracranial aneurysm. PHYSICAL EXAM: VITAL SIGNS: Reviewed. GENERAL: Well-developed in no acute distress. HEENT: Head is normocephalic. Pupils are equal, round. Sclerae anicteric. Mucous membranes of the mouth are moist. Neck supple. No JVD or thyromegaly LUNGS: Respirations even and unlabored. Lungs essentially clear to auscultation bilaterally. HEART: Regular rate and rhythm. S1 and S2 heard. ABDOMEN: Soft. Nondistended. Nontender. EXTREMITIES: Normal range of motion. No clubbing or cyanosis. Peripheral pulses intact. No lower extremity edema NEUROLOGIC: Awake and alert. Oriented x 3. 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 Petechial hemorrhage within the right thalamus. Nonspecific white matter changes Moderate coronary artery atherosclerosis, per CT Bilateral internal carotid artery artery stenosis, 70% left and 50 to 69% right Hypertension, uncontrolled Hyperlipidemia Hypothyroidism Obesity: BMI 34.5 PLAN: Continue aspirin 81 mg daily, amlodipine 5 mg daily, atorvastatin 40 mg at bedtime, Plavix 75 mg daily, lisinopril 10 mg daily Recommend 1 month event monitor from cardiology office at the time of discharge. Please contact cardiology DIRECTOR PHONE to make arrangements for event monitor prior to discharge. Patient to follow-up postdischarge in the office with Dr. Fink. Cardiology will sign off this case and follow on an as-needed basis. Please reconsult for any new concerns. Nurse practitioner note has been reviewed by physician. Signing provider agrees with the documented findings, assessment, and plan of care documented by DIRECTOR PHONE as a scribe. Objective - Vital Signs Vital signs: Vital Signs Temp 97.0 F L 12/12/23 07:46 Pulse 77 12/12/23 07:46 Resp 15 12/12/23 07:46 BP 165/76 12/12/23 07:46 Pulse Ox 96 12/12/23 04:00 FiO2 Intake & Output 12/11/23 12/12/23 12/12/23 18:59 06:59 18:59 Intake Total 598 Output Total 400 750 Balance 198 -750 Weight 84 kg Intake: Oral 598 Output: Urine 400 750 Other: Voiding Method Diaper Diaper External Catheter External Catheter External Catheter - Labs CBC & Chem 7: 12/11/23 04:41 12/11/23 04:41 Labs: Abnormal Lab Results - Last 24 Hours (Table) 12/11/23 12/11/23 Range/Units 04:41 04:41 Anion Gap 12.70 H (4.00-12.00) mmol/L Glucose 127 H (70-110) mg/dL HDL Cholesterol 68.70 H (40.00-60.00) mg/dL
--- NOTE | 2023-12-12 15:28 | P.PN ---
Subjective Progress Note Date: 12/12/23 This is a pleasant 6-year-old female who is here secondary to strokelike symptoms found to have a positive right thalamus and right splenium of the corpus callosum stroke as per brain MRI there is also concern for petechial hemorrhage I repeat brain CT was completed which is negative for any type of hemorrhage. Patient is alert oriented states that she does feel slightly weak in the left side as well as difficulty with her nearsighted vision. Patient had a CT angiography completed secondary to concerns for carotid stenosis there was findings of the left carotid bifurcation has 71% stenosis the rest of the internal carotid artery is patent on the left side the common carotid and external carotid arteries in the left side are patent. The common carotid and external carotid arteries in the right are patent there is a calcified plaque at the bifurcation with up to 62% stenosis in the rest of the internal carotid artery is patent. Patient is currently pending further evaluation by vascular surgery for this. Apparently she was post to see them outpatient in the past and has not. Review of Systems Constitutional: Denied any fatigue denied any fever. Cardio vascular: denied any chest pain, palpitations Gastrointestinal: denied any nausea, vomiting, diarrhea Pulmonary: Denied any shortness of breath cough Neurologic denied any new focal deficits All inpatient medications were reviewed and appropriate changes in these medications as dictated in the interval history and assessment and plan. PHYSICAL EXAMINATION: GENERAL: The patient is alert and oriented x3, not in any acute distress. Well developed, well nourished. HEENT: Pupils are round and equally reacting to light. EOMI. No scleral icterus. No conjunctival pallor. Normocephalic, atraumatic. No pharyngeal erythema. No thyromegaly. CARDIOVASCULAR: S1 and S2 present. No murmurs, rubs, or gallops. PULMONARY: Chest is clear to auscultation, no wheezing or crackles. ABDOMEN: Soft, nontender, nondistended, normoactive bowel sounds. No palpable organomegaly. MUSCULOSKELETAL: No joint swelling or deformity. EXTREMITIES: No cyanosis, clubbing, or pedal edema. NEUROLOGICAL: Gross neurological examination did not reveal any focal deficits. SKIN: No rashes. Assessment and Plan -Acute CVA involving the right thalamus and the right splenium of the corpus callosum with petechial hemorrhage within the right thalamus.. Aspirin. Lipitor. Plavix. Neurochecks every 4 hours. Neurology following MRI results above. -Acute gait dysfunction secondary to above with left-sided weakness PT OT. -Initial dysarthria from stroke. Improved. Seen by speech therapist -Severe greater than 70% proximal left ICA stenosis, moderate 50-6 9% proximal right ICA stenosis.: On carotid Doppler Vascular surgery consulted. Patient does follow-up with Dr. Cheung outpatient Vascular initially wants patient to follow-up outpatient for vascular intervention further discussion with neurology pending -Essential hypertension, uncontrolled beyond 24 hours of stroke.: Controlled Add amlodipine 5 mg a day. Zestril 10 mg a day -Hypothyroid Synthroid 88 mcg a day -Hypercholesterolemia Lipitor 40 mg nightly -Primary osteoarthritis Pain medication as needed -Full code DC IV fluids. Add amlodipine for blood pressure. PT OT. Follow-up with vascular. Patient tentatively to be discharged home tomorrow after final decision regarding inpatient versus outpatient vascular intervention. The impression and plan of care has been dictated by Fide Higginbotham, Nurse Practitioner as directed. Dr. Flo MD I have performed a history and physical examination and medical decision making of this patient, discussed the same with the dictator, and agree with the dictators assessment and plan as written, documented as a scribe. Based on total visit time, I have performed more than 50% of this visit. Objective - Vital Signs Vital signs: Vital Signs Temp 97.0 F L 12/12/23 07:46 Pulse 77 12/12/23 07:46 Resp 15 12/12/23 07:46 BP 165/76 12/12/23 07:46 Pulse Ox 96 12/12/23 04:00 FiO2 Intake & Output 12/11/23 12/12/23 12/12/23 18:59 06:59 18:59 Intake Total 598 Output Total 400 750 Balance 198 -750 Weight 84 kg Intake: Oral 598 Output: Urine 400 750 Other: Voiding Method Diaper Diaper External Catheter External Catheter External Catheter - Labs CBC & Chem 7: 12/11/23 04:41 12/11/23 04:41 Labs: Abnormal Lab Results - Last 24 Hours (Table) 12/11/23 12/11/23 Range/Units 04:41 04:41 Anion Gap 12.70 H (4.00-12.00) mmol/L Glucose 127 H (70-110) mg/dL HDL Cholesterol 68.70 H (40.00-60.00) mg/dL Assessment and Plan Time with Patient: Less than 30
--- NOTE | 2023-12-12 15:40 | P.PN ---
Subjective Progress Note Date: 12/12/23 I am following-up with patient and she feels about the same. She is having dizziness with left sided weakness. Objective - Vital Signs Vital signs: Vital Signs Temp 98.1 F 12/12/23 10:53 Pulse 65 12/12/23 10:53 Resp 15 12/12/23 10:57 BP 129/75 12/12/23 10:53 Pulse Ox 95 12/12/23 10:57 FiO2 Intake & Output 12/11/23 12/12/23 12/12/23 18:59 06:59 18:59 Intake Total 598 476 Output Total 400 750 200 Balance 198 -750 276 Weight 84 kg Intake: Oral 598 476 Output: Urine 400 750 200 Other: Voiding Method Diaper Diaper External Catheter External Catheter External Catheter - Exam GENERAL: The patient is sitting in a recliner chair and is not in acute distress. NEUROLOGICAL: Higher mental function: The patient is awake, alert, oriented to self, place and month but stated the year is 1923. Patient is following commands. No aphasia and no neglect. Cranial nerves: The pupils are round, equal and reactive to light and accom modation. Visual grijalva are full to confrontation throughout. Extraocular movement is intact no nystagmus is noted. Facial sensation is normal to touch throughout. The facial strength is left nasolabial flattening. Hearing is moderately decreased bilaterally to hand rub. Tongue is midline and moved [id number] without any difficulty. No dysarthria is noted. Shoulder shrug is normal bilaterally. Motor: The strength is left arm/forearm is 4+. Otherwise over 5 throughout. Normal tone and bulk. Cerebellum: Normal finger to nose bilaterally. Sensation: Sensation is normal to touch throughout. Some of the workup during this hospital visit consisted of: Lipid panel is triglycerides 94, cholesterol is 185, LDL is [address] of the head is reported as no evidence of acute intracranial pathology. MRI of the brain is reported as acute/subacute CVA involving the right thalamus and right splenium of the corpus callosum. Petechial hemorrhage within the right thalamus suggestive and susceptibility weighted image. I reviewed the MRI and agree with the report. Carotid duplex is reported as measurements suggest a severe greater than 70% proximal left ICA. Measurement also suggest moderate 50-69 proximal right ICA. CTA head and neck: Reported noncalcified plaque at the left carotid bifurcation with 71% stenosis. Right carotid bifurcation calcified plaque with 63% stenosis . No evidence of dissection of the cervical internal carotid artery. No evidence of intracranial high-grade stenosis or intracranial aneurysm Repeat CT of the head is reported as age-related atrophy and chronic small vessel ischemic change without acute intracranial process seen at this time. Petechial hemorrhage seen on MRI is not identified at this time on the CT. 2D echo: Normal left ventricular size systolic function. Mild aortic regurgitation, minimal mitral regurgitation and mild tricuspid regurgitation. There is a epicardial fat pad noted. Small effusion cannot be excluded. Bubble study was negative for shunt. - Labs CBC & Chem 7: 12/11/23 04:41 12/11/23 04:41 Labs: Abnormal Lab Results - Last 24 Hours (Table) 12/11/23 Range/Units 04:41 HDL Cholesterol 68.70 H (40.00-60.00) mg/dL Assessment and Plan Assessment: This is an 78-year-old woman who present emergency department because of dizziness left leg weakness, a fall. She had a MRI of the brain which showed stroke over minutes and splenium of corpus callosum. There is also petechial hemorrhage in the right thalamus. Acute to subacute stroke (right thalamus and splenium of corpus collasum). On examination patient had left nasal labial flattening, left arm weakness. No IV thrombolytic since outside the window and the risk by the benefit. Unsure exact etiology. Patient has right ICA stenosis of about 50 to 69% on duplex while 63% stenosis on CTA. Asymptomatic left ICA stenosis of about 70% greater on carotid duplex and 71% on CTA Hypertension urgency Underlying history of hypertension Hyperlipidemia Hypothyroidism Plan: Repeat CT head is negative for any bleed. Patient was started on aspirin 81 mg daily by cardiology team and primary team placed her on Plavix 75 mg daily. Prior to this patient was not on any antiplatelet. Primary has started on Lipitor 40 mg nightly for secondary stroke prophylaxis Vscular surgery team is consulted. Continue neurochecks Cardiac monitoring PT OT and BAND SAWMILL OPERATOR are consulted As stated earlier cardiology is on board. For DVT prophylaxis patient is on Lovenox. Will defer the rest of the medical management to primary and other specialist. Plan discussed with the patient, her children who are at bedside and her nurse. ADDENDUM: I spoke with Dr. House (vascular surgery team) and we agree intervention within 2 weeks since on recent imaging has petechial bleed and vascular needs high dose heparin. Notified her to pursue a repeat CT head a day/few days prior to surgery to rule out any bleed. Time with Patient: Less than 30
[2023-12-13 09:31] VITALS: PULSE 75
[2023-12-13 10:49] VITALS: BP 110/72; RESP 17; TEMP 97
--- NOTE | 2023-12-13 11:21 | P.PN ---
Subjective Progress Note Date: 12/13/23 Principal diagnosis: Carotid stenosis Patient is seen and examined today as a follow-up. She states that she has a little dizziness but most of that has gone away. Denies any extremity weakness. No other focal deficits. Plan is for discharge with follow-up with vascular surgery next week. Then will plan outpatient carotid surgical intervention. Objective - Vital Signs Vital signs: Vital Signs Temp 97.6 F 12/13/23 06:56 Pulse 62 12/13/23 06:56 Resp 14 12/13/23 06:56 BP 163/78 12/13/23 06:56 Pulse Ox 94 L 12/13/23 06:56 FiO2 Intake & Output 12/12/23 12/13/23 12/13/23 18:59 06:59 18:59 Intake Total 594 10 Output Total 700 375 Balance -106 -365 Weight 85.4 kg Intake: IV 10 Invasive Line 1 10 Oral 594 Output: Urine 700 375 Other: Voiding Method External Catheter External Catheter - Exam General appearance: The patient is alert, oriented, appears in no acute distress. HET: Head is normocephalic and atraumatic. Pupils are equal and reactive. Neck: Supple. Heart: Regular. Lungs: Equal expansion, normal respiratory effort. Abdomen: Soft, nontender, nondistended. Extremities: Normal skin color and turgor. Neurological: No focal deficits. Strength and sensation are grossly intact. - Labs CBC & Chem 7: 12/11/23 04:41 12/11/23 04:41 Assessment and Plan Assessment: 1. Bilateral internal carotid artery stenosis. Symptomatic right internal carotid artery stenosis 2. Acute/subacute CVA involving right thalamus and right splenium of the corpus callosum with petechial hemorrhage within the right thalamus 3. Hypertension 4. Hyperlipidemia 5. Hypothyroid Plan: 1. CT angiogram head and neck reviewed 2. Continue with atorvastatin, aspirin 81 mg and Plavix 75 mg daily 3. Discussed patient with neurology, will recommend outpatient follow-up with Dr. Cheung on 12/17/23 and schedule outpatient carotid surgical intervention Thank you for this consultation, patient is cleared from vascular surgery for discharge. The impression and plan of care has been dictated as directed. Dr. House I performed a history and examination of this patient, discussed the same with the dictator. I agree with the dictator's note ,documented as a scribe. Any additional findings or plans will be noted.
--- NOTE | 2023-12-13 13:08 | P.PN ---
Subjective Progress Note Date: 12/13/23 I am following up with the patient and she feels about the same. No new neurological issues. Objective - Vital Signs Vital signs: Vital Signs Temp 97 F L 12/13/23 10:48 Pulse 75 12/13/23 10:48 Resp 17 12/13/23 10:48 BP 110/72 12/13/23 10:48 Pulse Ox 95 12/13/23 10:48 FiO2 Intake & Output 12/12/23 12/13/23 12/13/23 18:59 06:59 18:59 Intake Total 594 10 354 Output Total 700 375 400 Balance -106 -365 -46 Weight 85.4 kg Intake: IV 10 Invasive Line 1 10 Oral 594 354 Output: Urine 700 375 400 Other: Voiding Method External Catheter External Catheter External Catheter - Exam GENERAL: The patient is sitting up in bed and is not in acute distress. NEUROLOGICAL: Higher mental function: The patient is awake, alert, oriented to self, place and month but stated the year is 1923. Patient is following commands. No aphasia and no neglect. Cranial nerves: The pupils are round, equal and reactive to light and accomm odation. Visual grijalva are full to confrontation throughout. Extraocular movement is intact no nystagmus is noted. Facial sensation is normal to touch throughout. The facial strength is left nasolabial flattening. Hearing is moderately decreased bilaterally to hand rub. Tongue is midline and moved [id number] without any difficulty. No dysarthria is noted. Shoulder shrug is normal bilaterally. Motor: The strength is left arm/forearm is 4+. Otherwise over 5 throughout. Normal tone and bulk. Cerebellum: Normal finger to nose bilaterally. Sensation: Sensation is normal to touch throughout. Some of the workup during this hospital visit consisted of: Lipid panel is triglycerides 94, cholesterol is 185, LDL is [address] of the head is reported as no evidence of acute intracranial pathology. MRI of the brain is reported as acute/subacute CVA involving the right thalamus and right splenium of the corpus callosum. Petechial hemorrhage within the right thalamus suggestive and susceptibility weighted image. I reviewed the MRI and agree with the report. Carotid duplex is reported as measurements suggest a severe greater than 70% proximal left ICA. Measurement also suggest moderate 50-69 proximal right ICA. CTA head and neck: Reported noncalcified plaque at the left carotid bifurcation with 71% stenosis. Right carotid bifurcation calcified plaque with 63% stenosis. No evidence of dissection of the cervical internal carotid artery. No evidence of intracranial high-grade stenosis or intracranial aneurysm Repeat CT of the head is reported as age-related atrophy and chronic small vessel ischemic change without acute intracranial process seen at this time. Petechial hemorrhage seen on MRI is not identified at this time on the CT. 2D echo: Normal left ventricular size systolic function. Mild aortic regurgitation, minimal mitral regurgitation and mild tricuspid regurgitation. There is a epicardial fat pad noted. Small effusion cannot be excluded. Bubble study was negative for shunt. - Labs CBC & Chem 7: 12/11/23 04:41 12/11/23 04:41 Assessment and Plan Assessment: This is an 78-year-old woman who present emergency department because of dizziness left leg weakness, a fall. She had a MRI of the brain which showed stroke over minutes and splenium of corpus callosum. There is also petechial hemorrhage in the right thalamus. Acute to subacute stroke (right thalamus and splenium of corpus collasum). On examination patient had left nasal labial flattening, left arm weakness. No IV thrombolytic since outside the window and the risk by the benefit. Unsure exact etiology. Patient has right ICA stenosis of about 50 to 69% on duplex while 63% stenosis on CTA. Asymptomatic left ICA stenosis of about 70% greater on carotid duplex and 71% on CTA Hypertension urgency Underlying history of hypertension Hyperlipidemia Hypothyroidism Plan: Repeat CT head is negative for any bleed. Patient was started on aspirin 81 mg daily by cardiology team and primary team placed her on Plavix 75 mg daily. Prior to this patient was not on any antiplatelet. Primary has started on Lipitor 40 mg nightly for secondary stroke prophylaxis Vscular surgery team is consulted. Spoke with the vascular surgery team (Dr. House) and we agreed on to perform surgery within 2 weeks because of recent petechial bleed as well as the patient had needs to place her on high heparin drip during the procedure. Her recent CT of the head is unremarkable for any bleed. Notified vascular surgeon to pain repeat CT of the head a few days prior to the surgery to make sure there is no any further bleed. Continue neurochecks Cardiac monitoring PT OT and EMPLOYMENT TRAINING SPECIALIST are consulted As stated earlier cardiology is on board. For DVT prophylaxis patient is on Lovenox. Will defer the rest of the medical management to primary and other specialist. Plan discussed with the patient, her daughter who are at bedside and her nurse. There is no further neurological work-up. Will sign off. Please reconsult if needed. Time with Patient: Less than 30
[2023-12-17] MEDS ORDERED: ERGOCALCIFEROL 1,250 MCG (50,000 IU) CAPSULE PO SCH (09:00)
== END 2023-12-13 13:19 | disposition home or self-care (01) | DRG 65 ==
LOC: EC 16:58 → 6NMEDSUR 19:36 → OBSVTOIN 19:37 → 6NMEDSUR 21:03 → 3SCARD 12-11 17:08
PROVIDERS: ADMIT Hospitalist; ATTEND Hospitalist
DX: I63.231 Cerebral infarction due to unspecified occlusion or stenosis of right carotid arteries (principal); L12.0 Bullous pemphigoid; I65.22 Occlusion and stenosis of left carotid artery; I16.0 Hypertensive urgency; G83.14 Monoplegia of lower limb affecting left nondominant side; E03.9 Hypothyroidism, unspecified; E66.9 Obesity, unspecified; E78.00 Pure hypercholesterolemia, unspecified; H93.13 Tinnitus, bilateral; I11.9 Hypertensive heart disease without heart failure; I25.10 Atherosclerotic heart disease of native coronary artery without angina pectoris; I83.90 Asymptomatic varicose veins of unspecified lower extremity; K57.90 Diverticulosis of intestine, part unspecified, without perforation or abscess without bleeding; M19.91 Primary osteoarthritis, unspecified site; R47.1 Dysarthria and anarthria; Z68.34 Body mass index [BMI] 34.0-34.9, adult; Z79.02 Long term (current) use of antithrombotics/antiplatelets; Z79.82 Long term (current) use of aspirin; Z79.890 Hormone replacement therapy; Z79.899 Other long term (current) drug therapy; Z86.0100 Personal history of colon polyps, unspecified; Z84.89 Family history of other specified conditions
CPT/HCPCS: 36415; 70450; 70496; 70498; 70553; 71275; 80053; 80061; 81003; 83605; 83735; 83880; 84100; 84484; 85025; 85379; 85610; 85730; 93005; 93306; 93880; 94760; 96361; 96372; 96374; 99285

== ENCOUNTER 2024-01-06 06:04 | Inpatient (IN) | payer MEDICARE ==
[~2024-01-06 06:04] MED LIST: ALPRAZolam 0.25 MG TAB PO PRN; ALPRAZolam 0.5 MG TAB PO PRN; NITROGLYCERIN SL TABS 0.4 MG TAB SUBLINGUAL PRN
[2024-01-06] MEDS: CLOPIDOGREL 75 MG TAB PO PRN (06:41)
[2024-01-06] MEDS: ASPIRIN 81 MG PO PRN (06:41)
[2024-01-06] MEDS: IV FLUID CONTINUATION 1,000 ML IV ONE (06:42)
--- NOTE | 2024-01-06 07:22 | P.ANPRN ---
Procedure Note - Anesthesia - Invasive Line Left Arterial Line Time Out Performed: Yes Date of Procedure: 01/06/24 Time of Procedure: 07:00 Location of Patient: PreOp Preparation: Sterile Prep, Sterile Dressing Arterial Line Location: Radial Ultrasound Used: Yes Purpose - Visualization and Identification of Vasculature: Yes Image Stored and Saved: Yes Narrative: Invasive line placement per sterile protocol utilized. AttemptX1 by me. MAPPING EDITOR attemmpted earlier.
[2024-01-06] MEDS ORDERED: DEXMEDETOMIDINE/0.9% NACL(PMX) 400 MCG/100 ML IV ONE (07:25)
[2024-01-06] MEDS ORDERED: PROTAMINE SULFATE 10 MG/ML 5 ML VIAL ONE (07:25)
[2024-01-06] MEDS ORDERED: ONDANSETRON 4 MG/2 ML VIAL ONE (07:25)
[2024-01-06] MEDS ORDERED: HEPARIN SODIUM,PORCINE 10,000 UNIT/ML 1 ML VIAL ONE (07:25)
[2024-01-06] MEDS ORDERED: fentaNYL (PF) 50 MCG/ML 2 ML AMP ONE (07:25)
[2024-01-06] MEDS ORDERED: GLYCOPYRROLATE 0.2 MG/ML 2 ML VIAL ONE (07:25)
[2024-01-06] MEDS ORDERED: PHENYLEPHRINE 10 MG/ML VIAL ONE (07:25)
[2024-01-06] MEDS: LIDOCAINE 1% INJ 10MG/ML (20 ML MDV) SQ ONE ×4 (08:01→08:05)
[2024-01-06] MEDS: THROMBIN (BOVINE) 5,000 UNIT VIAL TOPICAL ONE (08:05)
[2024-01-06] MEDS: HEPARIN SODIUM,PORCINE 10,000 UNIT in SODIUM CHLORIDE 0.9% 1,000 ML IRRIGATION ONE (08:07)
[2024-01-06] MEDS: CEFAZOLIN IRRIGATION ONE (08:10)
[2024-01-06] MEDS: SODIUM CHLORIDE 0.9% IRRIGATION ONE (08:10)
[2024-01-06] MEDS ORDERED: RX INFO: IV CONTRAST WAS GIVEN 1 EACH MISC MISCELLANE PRN (09:00)
[2024-01-06] MEDS ORDERED: MAG HYDROX/AL HYDROX/SIMETH 30 ML CUP PO PRN (09:09)
[2024-01-06] MEDS ORDERED: ATROPINE SULFATE 0.1 MG/ML 10ML SYRINGE IV PRN (09:09)
--- NOTE | 2024-01-06 09:09 | P.OP ---
Description of Procedure: Date: 01/06/2024 Preoperative diagnosis: Symptomatic right carotid stenosis greater than 60% Postoperative diagnosis: Symptomatic right carotid stenosis greater than 80% Procedure: Right internal carotid artery TCAR (transient carotid artery revascularization) with ENROUTE trans-carotid neuro protection and stent system Surgeon: Justus Cheung D.O. Sports Broadcaster: None Anesthesia: Local with sedation Estimated blood loss: Minimal Complications: None Condition: Stable Findings: Severe stenosis greater than 80% Pre-Dilatation balloon: 6 x 30 mm Gomez balloon Stent: 8 x 30 mm silkroad Enroute stent Flow reversal time: 11 minutes Contrast: 20 cc Indication for procedure: 78-year-old female with history of recent hospitalization secondary to dizziness, syncope and left lower extremity weakness found to have an acute stroke involving the right parotid distribution and therefore presents today for TCAR. Operative narrative: After written and informed consent was obtained from the patient and all risks, benefits and complications were described. The patient was brought to the operating suite and laid in a supine position. The neck and groin were prepped and the patient was sterilely draped. A transverse 2-4 cm incision was made between the sternal and clavicular heads of the sternocleidomastoid muscle, below the omohyoid. Following longitudinal division of the carotid sheath the jugular vein was partially dissected and retracted. Once 3 cm of common carotid artery (CCA) were isolated, umbilical tape was placed around the proximal 1/3 of the CCA under direct vision. A 5.0 polypropylene suture was pre-placed in the anterior wall of the CCA, in a purse- string stitch, close to the clavicle to facilitate hemostasis upon removal of the arterial sheath at completion of the TCAR procedure. The contralateral left common femoral vein was accessed under ultrasound guidance, using standard Seldinger and micropuncture access technique. The Venous Return Sheath was advanced into the CFV over the 0.035 wire provided. Blood was aspirated from the flow line followed by flushing of the Venous Sheath with heparinized saline. The Venous Sheath was secured to the patient's skin with suture to maintain optimal position in the vessel. Heparin was given to obtain a therapeutic activated clotting time >250 seconds prior to arterial access. A 4-Tajik non-stiffened micropuncture set was used, puncturing the artery with the 21G needle through the pre-placed stitch while holding gentle traction on the umbilical tape to stabilize and centralize the CCA within the incision. Careful attention was paid to the change in CCA shape when using the umbilical tape to control or lift the artery. The micropuncture wire was then advanced 3-4 cm into the CCA and, the 21G needle was removed. The micropuncture sheath was advanced 2-3 cm into the CCA and the wire and dilator were removed. Pulsatile backflow indicated correct positioning. The provided 0.035" J-tipped guidewire was inserted as close as possible to the bifurcation without engaging the lesion. After micropuncture sheath removal, the Transcarotid Arterial Sheath was advanced to the 2.5cm marker and the 0.035 wire and dilator were then removed. Arterial Sheath position was assessed under fluoroscopy in two projections to ensure that the sheath tip was oriented coaxially in the CCA. The Arterial Sheath was sutured to the patient with gentle forward tension. Blood was slowly aspirated followed by flushing with heparinized saline. Traction applied to the CCA previously to facilitate access was gently released. The Flow Controller was connected to the Transcarotid Arterial Sheath, prepared by passively allowing a column of arterial blood to fill the line and connected to the Venous Return Sheath. CCA inflow was occluded proximal to the arteriotomy with a vascular clamp to achieve active flow reversal. To confirm flow reversal, a saline bolus was delivered into the venous flow line on both High and Low flow settings of the Flow Controller. Angiograms were performed with slow injections of a small amount of contrast filling just past the lesion to minimize antegrade transmission of micro-bubbles. Prior to lesion manipulation, heart rate (70bpm) and systolic BP (140-160mmHg) were managed upwards to optimize flow reversal and procedural neuroprotection. The lesion was crossed with an 0.014 guidewire, pre- dilatation with a 6.0x30mm balloon was performed followed by primary stenting with the ENROUTE Transcarotid 8x30mm stent. Post dilatation was also performed with a 6.0x30mm balloon. At TCAR case completion, antegrade flow was restored. The Transcarotid Arterial Sheath was removed and the pre-closure suture was tied. The Venous Return Sheath was removed and hemostasis was achieved with brief manual compression. The patient tolerated the procedure well and was moving all four extremities to command and then sent to PACU for recovery.
[2024-01-06] MEDS ORDERED: ACETAMINOPHEN TAB 500 MG TAB PO PRN (09:11)
[2024-01-06] MEDS: PHENYLEPHRINE 10 MG/ML VIAL IV ONE (10:00)
[2024-01-06] MEDS: PHENYLEPHRINE-0.9% NACL SYG 1,000 MCG/10 ML SYRINGE IVP ONE ×4 (10:00→10:15)
--- NOTE | 2024-01-06 10:16 | IR ---
EXAMINATION TYPE: IR stent intravas non coronary DATE OF EXAM: 01/06/2024 9:29 AM COMPARISON: Pre Operative Images if available both CT/MRI or plain film CLINICAL INDICATION: Female, 78 years old with history of right carotid stenosis, 6.6min fluoro, 28Gy cm2; TECHNIQUE: IR stent intravas non coronary, multiple fluoroscopic images provided for procedure. Total fluoroscopy time: 6.5 minutes Total submitted images to PACS: [id number] DAP: 28.00 mGym2 Gycm2 uGym2 cGycm2 or equivalent. FINDINGS: IMPRESSION: 1. Report was generated for administrative purposes only. 2. Please see the operative/procedural note for further details. [facility], , 01/06/2024 10:13 AM
[2024-01-06] MEDS: PHENYLEPHRINE 40 MG in SODIUM CHLORIDE 0.9% 250 ML IV SCH (10:20)
[2024-01-06 11:54] LABS: Glucose,Whole Blood 107 mg/dL (70-110)
[2024-01-06] MEDS: SODIUM CHLORIDE 0.9% 1,000 ML in EMPTY BAG 1 BAG IV ONE (12:38)
[2024-01-06] MEDS: ceFAZolin 1,000 MG in SODIUM CHLORIDE 0.9% IRRIG BTL 250 ML IRRIGATION ONE (12:38)
[2024-01-06] MEDS: SODIUM CHLORIDE 0.9% 1,000 ML IV SCH (12:39)
[2024-01-06] MEDS: PSEUDOEPHEDRINE 30 MG TAB PO SCH (17:13)
[2024-01-06] MEDS ORDERED: ATORVASTATIN 40 MG TAB PO SCH (21:00)
[2024-01-06] MEDS: amLODIPine 5 MG TAB PO SCH (21:34)
[2024-01-06] MEDS: ATORVASTATIN 40 MG TAB PO SCH (21:39)
[2024-01-07] MEDS: LEVOTHYROXINE 88 MCG TAB PO SCH (06:12)
[2024-01-07 06:26] LABS: Basophils % (A) 0 %; Eosinophils # (A) 0.3 k/uL (0-0.7); Eosinophils % (A) 4 %; HCT 40.3 % (34.0-46.0); HGB 12.6 gm/dL (11.4-16.0); Hypochromasia Slight; Lymphocytes # (A) 1.3 k/uL (1.0-4.8); Lymphocytes % (A) 17 %; MCHC 31.3 g/dL (31.0-37.0); MCV 92.5 fL (80.0-100.0); Mean Platelet Volume 7.7; Monocytes # (A) 0.7 k/uL (0-1.0); Monocytes % (A) 9 %; Neutrophils # (A) 5.4 k/uL (1.3-7.7); Neutrophils % (A) 68 %; Platelet Count 235 k/uL (150-450); RBC 4.36 m/uL (3.80-5.40); RDW 13.2 % (11.5-15.5); WBC 7.9 k/uL (3.8-10.6)
[2024-01-07 06:41] LABS: African American GFR (CKD) >90 (>60 ml/min/1.73 sqM); Anion Gap 5 mmol/L; Blood Urea Nitrogen 9 mg/dL (7-17); Calcium 8.8 mg/dL (8.4-10.2); Carbon Dioxide 26 mmol/L (22-30); Chloride 107 mmol/L (98-107); Glucose 99 mg/dL (74-99); Non-African American GFR(CKD) 85 (>60 ml/min/1.73 sqM); Potassium 4.2 mmol/L (3.5-5.1); Sodium 138 mmol/L (137-145)
[2024-01-07] MEDS: ASPIRIN 81 MG PO SCH (08:03)
[2024-01-07] MEDS: NIACIN TR 500 MG CAPLET PO SCH (08:04)
[2024-01-07] MEDS: CLOPIDOGREL 75 MG TAB PO SCH ×2 (08:04)
[2024-01-07] MEDS: DOXYCYCLINE 50 MG CAP PO SCH (08:04)
[2024-01-07] MEDS: ERGOCALCIFEROL 1,250 MCG (50,000 IU) CAPSULE PO SCH (08:05)
[2024-01-07] MEDS ORDERED: lisinopriL 20 MG TAB PO SCH (09:00)
[2024-01-07] MEDS ORDERED: BIOTIN 10000 MCG PO SCH (09:00)
--- NOTE | 2024-01-07 13:17 | P.PN ---
Subjective Progress Note Date: 01/07/24 Principal diagnosis: Carotid endarterectomy Patient is seen and examined today as a follow-up. She is postop day #1 for right TCAR. Patient required marcelle-Synephrine postsurgery and was admitted to the ICU. She is still requiring 0.3 mcg to maintain blood systolic pressures in the 110s to 120s. She denies any shortness of breath, chest pain, dizziness. She has no focal deficits. She has been up and ambulating. She is voiding without difficulty. She is eating without difficulty. Objective - Vital Signs Vital signs: Vital Signs Temp 98.3 F 01/07/24 04:00 Pulse 64 01/07/24 12:00 Resp 16 01/07/24 12:00 BP 101/53 01/07/24 12:00 Pulse Ox 95 01/07/24 11:00 FiO2 Intake & Output 01/06/24 01/07/24 01/07/24 18:59 06:59 18:59 Intake Total 628.041 482.949 172.122 Output Total 800 750 400 Balance -171.959 -267.051 -227.878 Weight 90.1 kg Intake: IV 502 370 50 0.9% NS KVO 70 50 Sodium Chloride 0.9% 1, 500 300 000 ml @ 100 mls/hr IV . Q10H JOSELIN Rx#:[id number] Intake, IV Titration 126.041 112.949 122.122 Amount Phenylephrine 40 mg In 126.041 112.949 122.122 Sodium Chloride 0.9% 250 ml @ 0.5 MCG/KG/MIN 16. 097 mls/hr IV .[id number] JOSELIN Rx#:[id number] Output: Urine 800 750 400 Other: Voiding Method Bedside Commode Bedside Commode Toilet Bedside Commode # Bowel Movements 0 0 ABP, PAP, CO, CI - Last Documented Arterial Blood Pressure 270/270 - Exam General appearance: The patient is alert, oriented, appears in no acute distress . HET: Head is normocephalic and atraumatic. Pupils are equal and reactive. Neck: Supple. Right neck incision site with ecchymosis and some swelling although soft. Heart: Regular. Lungs: Equal expansion, normal respiratory effort. Abdomen: Soft, nontender, nondistended. Extremities: Normal skin color and turgor. Left groin access site without any hematoma, bleeding or bruising. Neurological: No focal deficits. Strength and sensation are grossly intact. - Labs CBC & Chem 7: 01/07/24 06:16 01/07/24 06:16 Assessment and Plan Assessment: 1. Symptomatic right carotid artery stenosis greater than 80% status post right internal carotid artery with a better put that transcarotid artery revascularization with stent 2. Postoperative hypotension, can be an expected outcome Plan: 1. Sudafed 60 mg p.o. every 6 hours 2. Continue marcelle to maintain systolic blood pressure above 110 3. Encourage ambulation 4. Heart healthy diet 5. Continue aspirin and Plavix 6. Hold lisinopril 7. Rest of medical management per primary medical team The impression and plan of care has been dictated as directed. I performed a history and examination of this patient, discussed the same with the dictator. I agree with the dictator's note ,documented as a scribe. Any additional findings or plans will be noted.
--- NOTE | 2024-01-07 16:46 | P.CONS ---
History of Present Illness - Reason for Consult Consult date: 01/07/24 Medically managed Requesting physician: Justus Cheung - Chief Complaint Right cataract surgery - History of Present Illness This is a pleasant 78-year-old patient, follows with Dr. Wells. medical conditions include hypertension, hyperlipidemia, hypothyroid, diverticulosis, bilateral tinnitus, lower extremity varicosities. 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 Petechial hemorrhage within the right thalamus. Was seen by vascular surgery. For symptomatic right carotid stenosis patient underwent transient carotid artery revascularization stent placement. Postprocedure patient in the ICU. Prior to surgery patient blood pressure be running high. Patient at home was taking Prinivil and amlodipine. Postprocedure patient's blood pressure been running rather low. Patient has been on f phenylephrine drip. Also Sudafed 60 mg every 6 was added by the vascular team. Blood pressures running in with systolic blood pressure just above 100. Up in a recliner. After the stroke patient speech is slightly slow. Patient has to hold onto things being weak on the left side a bit. Otherwise able to tolerate a diet. Review of systems: GEN.: Tired EYES: None HEENT: None NECK: Right neck incision RESPIRATORY: None CARDIOVASCULAR: None GASTROINTESTINAL: None GENITOURINARY: None MUSCULOSKELETAL: None LYMPHATICS: None HEMATOLOGICAL: None PSYCHIATRY: None NEUROLOGICAL: Speech is slightly slow. Some weakness on the left side Social history: Lives alone. No smoking or alcohol. Physical examination: VITAL SIGNS: Prior, 56, 23, 100/50, GENERAL: BMI 35.2, up in a recliner EYES: Pupils equal. Conjunctiva sari l. HEENT: External appearance of nose and ears normal, oral cavity grossly normal. NECK: JVD not raised; masses not palpable. HEART: First and second heart sounds are normal; no edema. LUNGS: Respiratory rate normal; clear to auscultation. ABDOMEN: Soft, nontender, liver spleen not palpable, no masses palpable. PSYCH: Alert and oriented x3; mood and affect sari l. MUSCULOSKELETAL:No Clubbing/cyanosis;muscles-grossly intact NEUROLOGICAL: Speech is very slightly slow t LYMPHATICS: No lymph nodes palpable in the axilla and neck INVESTIGATIONS, reviewed in the clinical context: January 07, 2024: White count 7.9 hemoglobin 12.6 platelets 235 potassium 4.[address] angiogram of the brain: Right carotid bifurcation calcified plaque with 63 Kimberly stenosis. Noncalcified plaque at the left carotid bifurcation with 71% stenosis. MRI brain: Acute/subacute CVA involving the right thalamus and the right splenium of the corpus callosum. Petechial hemorrhage within the right thalamus. Some nonspecific white matter changes. Carotid Doppler: Severe greater than 70% proximal left ICA stenosis. Moderate 50-69% proximal right ICA stenosis. Assessment plan: -Right carotid artery stenosis, s/p angioplasty stent by Dr. Cheung on January 06, 2024. Aspirin. 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 Aspirin. Lipitor. Plavix. -Some left-sided paresis from recent stroke -Mild dysarthria from recent stroke -Severe greater than 70% proximal left ICA stenosis, moderate 50-6 9% proximal right ICA stenosis.: On carotid Doppler Patient does follow-up with Dr. Cehung outpatient Patient is due for surgery on the left side down the road -Essential hypertension,, presurgery Patient is getting amlodipine and Zestril, currently held -Post surgical hypotension, likely from carotid sensitivity from carotid surgery Patient currently on phenylephrine drip. Oral Sudafed 60 mg every 6 Add bilateral above knee GARCIA stockings to help with blood pressure pressure -Hypothyroid Synthroid 88 mcg a day -Hypercholesterolemia Lipitor 40 mg nightly -Primary osteoarthritis Pain medication as needed -Full code Care was discussed with the patient. Questions answered Thank you Dr. Cheung Past Medical History Past Medical History: CVA/TIA, Hyperlipidemia, Hypertension, Syncope, Thyroid Disorder, Vascular Disorder Additional Past Medical History / Comment(s): Hypothyroid, diverticular disease, benign colon polyps, bilateral tinnitis, bilateral varicosities per pt. cva/tia 11/2023with stroke passsed out briefly History of Any Multi-Drug Resistant Organisms: None Reported Past Surgical History: Section, Tubal Ligation Additional Past Surgical History / Comment(s): Colonoscopies/benign polypectomies. Past Anesthesia/Blood Transfusion Reactions: Motion Sickness, Postoperative Nausea & Vomiting (PONV) Smoking Status: Never smoker - Past Family History Mother Family Medical History: Cancer Additional Family Medical History / Comment(s): Mother had skin and esophageal cancer. She at the age of 86yrs. Father Additional Family Medical History / Comment(s): Father had bradycardia and of bradycardia/leg edema at the age of 84yrs. Medications and Allergies Home Medications Medication Instructions Recorded Confirmed Type Levothyroxine Sodium [Synthroid] 88 mcg PO DAILY 06/07/15 01/06/24 History Biotin [Biotin Disolve] 10,000 mcg PO DAILY 05/27/20 01/06/24 History Doxycycline Hyclate 50 mg PO DAILY 05/27/20 01/06/24 History Niacinamide 500 mg PO DAILY 05/27/20 01/06/24 History Acetaminophen Tab [Tylenol] 500 mg PO Q6HR PRN 12/10/23 01/06/24 History Ergocalciferol (Vitamin D2) 1,250 mcg PO TU 12/10/23 01/06/24 History [Drisdol (50,000 Iu)] Aspirin 81 mg PO DAILY 30 Days #30 tab 12/13/23 01/06/24 Rx Atorvastatin [Lipitor] 40 mg PO HS 30 Days #30 tab 12/13/23 01/06/24 Rx Clopidogrel [Plavix] 75 mg PO DAILY 30 Days #30 tab 12/13/23 01/06/24 Rx lisinopriL [Prinivil] 20 mg PO DAILY 01/03/24 01/06/24 History amLODIPine [Norvasc] 5 mg PO HS 01/06/24 01/06/24 History Allergies Allergy/AdvReac Type Severity Reaction Status Date / Time No Known Allergies Allergy Verified 01/06/24 06:20 Physical Exam Vitals: Vital Signs Temp Pulse Pulse Resp BP BP Pulse Ox 01/07/24 10:00 46 L 18 121/53 97 01/07/24 09:00 52 L 16 140/67 95 01/07/24 08:00 49 L 10 L 131/88 95 01/07/24 07:15 53 L 22 114/62 01/07/24 07:00 67 13 149/74 01/07/24 06:45 44 L 18 144/65 94 L 01/07/24 06:30 47 L 15 132/63 94 L 01/07/24 06:15 50 L 14 121/49 94 L 01/07/24 06:00 49 L 12 134/63 95 01/07/24 05:45 19 148/66 95 01/07/24 05:30 46 L 16 148/73 94 L 01/07/24 05:15 46 L 16 113/48 94 L 01/07/24 05:00 47 L 20 156/63 95 01/07/24 04:45 47 L 14 148/67 93 L 01/07/24 04:30 48 L 16 128/61 93 L 01/07/24 04:15 49 L 12 156/66 93 L 01/07/24 04:00 98.3 F 46 L 14 156/70 91 L 01/07/24 03:45 46 L 14 152/67 92 L 01/07/24 03:30 48 L 12 154/63 96 01/07/24 03:15 45 L 17 156/72 96 01/07/24 03:00 48 L 16 153/67 93 L 01/07/24 02:45 48 L 16 148/69 95 01/07/24 02:30 49 L 19 154/69 94 L 01/07/24 02:15 48 L 12 153/62 94 L 01/07/24 02:00 56 L 14 155/65 97 01/07/24 01:45 49 L 21 154/62 90 L 01/07/24 01:30 43 L 19 145/65 96 01/07/24 01:15 46 L 14 144/62 96 01/07/24 01:00 47 L 16 121/58 96 01/07/24 00:45 44 L 12 132/61 92 L 01/07/24 00:30 46 L 12 136/63 94 L 01/07/24 00:15 47 L 7 L 139/66 93 L 01/07/24 00:00 98.5 F 45 L 17 142/69 94 L 01/06/24 23:45 48 L 20 135/74 95 01/06/24 23:30 45 L 17 155/70 93 L 01/06/24 23:15 49 L 20 139/64 93 L 01/06/24 23:00 46 L 16 141/64 91 L 01/06/24 22:45 44 L 17 141/65 94 L 01/06/24 22:30 47 L 21 120/62 94 L 01/06/24 22:15 48 L 21 107/51 94 L 01/06/24 22:00 53 L 19 119/59 95 01/06/24 21:45 51 L 13 137/63 93 L 01/06/24 21:30 49 L 18 136/64 97 01/06/24 21:16 49 L 19 131/58 97 01/06/24 21:00 50 L 17 132/91 95 01/06/24 20:45 53 L 18 138/66 94 L 01/06/24 20:30 52 L 21 136/65 95 01/06/24 20:15 55 L 14 135/64 96 01/06/24 20:00 98.2 F 50 L 20 118/56 99 01/06/24 19:45 56 L 22 105/58 97 01/06/24 19:30 56 L 12 137/64 98 01/06/24 19:15 49 L 13 136/62 97 01/06/24 19:00 48 L 14 157/68 98 01/06/24 18:00 45 L 15 133/60 97 01/06/24 17:00 46 L 18 139/70 96 01/06/24 16:00 46 L 4 L 139/82 100 01/06/24 15:00 44 L 16 139/59 94 L 01/06/24 14:00 48 L 19 117/65 96 01/06/24 13:15 54 L 19 121/59 98 01/06/24 13:00 49 L 12 117/56 100 01/06/24 12:45 52 L 5 L 124/63 96 01/06/24 12:30 52 L 3 L 124/64 96 01/06/24 12:15 55 L 0 L 132/68 96 01/06/24 12:00 97.1 F L 60 16 133/74 97 01/06/24 11:30 55 L 16 111/54 97 01/06/24 11:15 56 L 16 100/56 97 Intake and Output 01/06/24 01/07/24 01/07/24 22:59 06:59 14:59 Intake Total 714.720 143.778 126.689 Output Total 800 750 400 Balance -85.280 -606.222 -273.311 Intake: IV 600 70 30 0.9% NS KVO 70 30 Sodium Chloride 0.9% 1, 600 000 ml @ 100 mls/hr IV . Q10H [facility] Rx#:[id number] Intake, IV Titration 114.720 73.778 96.689 Amount Phenylephrine 40 mg In 114.720 73.778 96.689 Sodium Chloride 0.9% 250 ml @ 0.5 MCG/KG/MIN 16. 097 mls/hr IV .[id number] [facility] Rx#:[id number] Output: Urine 800 750 400 Other: Voiding Method Bedside Commode Bedside Commode Toilet Bedside Commode # Bowel Movements 0 0 Weight 90.1 kg Results CBC & Chem 7: 01/07/24 06:16 01/07/24 06:16
--- NOTE | 2024-01-08 10:43 | P.DS ---
Providers Date of admission: 01/06/24 06:04 Expected date of discharge: 01/08/24 Attending physician: Justus Cheung DO Consults: 01/06/24 12:30 Consult Physician Routine Consulting Provider: Mookie Verduzco Consult Reason/Comments: medical management,s/p TCAR Do you want consulting provider notified?: Yes Primary care physician: Reshma [facility] Course: 78-year-old female with history of recent hospitalization secondary to acute stroke involving right parotid distribution was left-sided weakness presented for scheduled right ICA TCAR for symptomatic right carotid stenosis. Patient also has history of left ICA stenosis that will be addressed at a later time. She is postop day #2. She had postoperative hypotension which can be seen secondary to carotid stent and required dyllan-Synephrine. [place] weaned down throughout the night. She is on 0.06 mcg this morning. That was then discontinued and patient is maintaining blood systolic blood pressure of 120. She has had no focal deficits, she has been up and ambulating. She is voiding without difficulty. She is tolerating her diet and no difficulty with swallowing. Pain has been well-managed. Exam General appearance: The patient is alert, oriented, appears in no acute distress. HET: Head is normocephalic and atraumatic. Pupils are equal and reactive. Neck: Supple. Right neck incision site with ecchymosis and some swelling although soft. Heart: Regular. Lungs: Equal expansion, normal respiratory effort. Abdomen: Soft, nontender, nondistended. Extremities: Normal skin color and turgor. Left groin access site without any hematoma, bleeding or bruising. Neurological: No focal deficits. Strength and sensation are grossly intact. Assessment 1. Symptomatic right carotid artery stenosis greater than 80% status post right internal carotid artery with a better put that transcarotid artery revascularization with stent 2. Postoperative hypotension, can be an expected outcome Plan 1. Continue to hold lisinopril 2. Discontinue Dyllan-Synephrine 3. Continue Sudafed 60 mg every 6 hours x 3 days 4. Encourage ambulation 5. Plan for discharge today. Discharge instructions reviewed with patient including medication changes. Patient is to follow-up with her PCP Dr. Wells in 2 to 3 days to review blood pressures The impression and plan of care has been dictated as directed. I performed a history and examination of this patient, discussed the same with the dictator. I agree with the dictator's note ,documented as a scribe. Any additional findings or plans will be noted. Procedures: Procedure: Right internal carotid artery TCAR (transient carotid artery revascularization) with ENROUTE trans-carotid neuro protection and stent system Surgeon: Justus Cheung D.O. Patient Condition at Discharge: Stable Plan - Discharge Summary New Discharge Prescriptions: New Pseudoephedrine [Sudafed] 60 mg PO Q6HR tab Continue Levothyroxine Sodium [Synthroid] 88 mcg PO DAILY Niacinamide 500 mg PO DAILY Doxycycline Hyclate 50 mg PO DAILY Biotin [Biotin Disolve] 10,000 mcg PO DAILY Ergocalciferol (Vitamin D2) [Drisdol (50,000 Iu)] 1,250 mcg PO TU Aspirin 81 mg PO DAILY 30 Days #30 tab amLODIPine [Norvasc] 5 mg PO HS Acetaminophen Tab [Tylenol] 500 mg PO Q6HR PRN PRN Reason: Pain Or Fever > 100.5 Atorvastatin [Lipitor] 40 mg PO HS 30 Days #30 tab Clopidogrel [Plavix] 75 mg PO DAILY 30 Days #30 tab Discontinued lisinopriL [Prinivil] 20 mg PO DAILY Discharge Medication List Levothyroxine Sodium [Synthroid] 88 mcg PO DAILY 06/07/15 [History] Biotin [Biotin Disolve] 10,000 mcg PO DAILY 05/27/20 [History] Doxycycline Hyclate 50 mg PO DAILY 05/27/20 [History] Niacinamide 500 mg PO DAILY 05/27/20 [History] Acetaminophen Tab [Tylenol] 500 mg PO Q6HR PRN 12/10/23 [History] Ergocalciferol (Vitamin D2) [Drisdol (50,000 Iu)] 1,250 mcg PO TU 12/10/23 [History] Aspirin 81 mg PO DAILY 30 Days #30 tab 12/13/23 [Rx] Atorvastatin [Lipitor] 40 mg PO HS 30 Days #30 tab 12/13/23 [Rx] Clopidogrel [Plavix] 75 mg PO DAILY 30 Days #30 tab 12/13/23 [Rx] amLODIPine [Norvasc] 5 mg PO HS 01/06/24 [History] Pseudoephedrine [Sudafed] 60 mg PO Q6HR tab 11/20/24 [Rx] Follow up Appointment(s)/Referral(s): Jax Wells DO [STAFF PHYSICIAN] - 3 Days (Dr. Wells Office will call with appointment date and time. Appointment will be either 01/09 or 01/12.) Justus Cheung DO [STAFF PHYSICIAN] - 01/21/24 11:15 am Patient Instructions/Handouts: Carotid Artery Stent Placement (DC) Activity/Diet/Wound Care/Special Instructions: No strenuous activity or heavy lifting greater than 10 pounds. May shower today but no tub bathing or soaking. Watch incision site for infection including redness, drainage, or temperature greater than 100.4. If you notice he symptoms please call office Discontinue Lisinopril for now until you follow-up with Dr. Wells. Recommend follow-up with Dr. Wells this Saturday or Saturday for blood pressure check Continue Sudafed 60 mg every 6 hours for the next 3 days
[2024-01-08 11:27] VITALS: BP 129/60; PULSE 56; RESP 9; TEMP 97.7
--- NOTE | 2024-01-08 15:59 | P.PN ---
Progress Note - Text Progress Note Date: 01/08/24 - Chief Complaint Right cataract surgery - History of Present Illness This is a pleasant 78-year-old patient, follows with Dr. Wells. medical conditions include hypertension, hyperlipidemia, hypothyroid, diverticulosis, bilateral tinnitus, lower extremity varicosities. 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 Petechial hemorrhag e within the right thalamus. Was seen by vascular surgery. For symptomatic right carotid stenosis patient underwent transient carotid artery revascularization stent placement. Postprocedure patient in the ICU. Prior to surgery patient blood pressure be running high. Patient at home was taking Prinivil and amlodipine. Postprocedure patient's blood pressure been running rather low. Patient has been on f phenylephrine drip. Also Sudafed 60 mg every 6 was added by the vascular team. Blood pressures running in with systolic blood pressure just above 100. Up in a recliner. After the stroke patient speech is slightly slow. Patient has to hold onto things being weak on the left side a bit. Otherwise able to tolerate a diet. January 07: Patient was discharged by surgical team. Patient remains off lisinopril and amlodipine both. Being discharged on Sudafed. Spoke to the patient and daughter. To check manual blood pressure twice daily and keep a log. Parameters details were discussed at length. Patient due to follow-up with his PCP probably this Saturday. Social history: Lives alone. No smoking or alcohol. Physical examination: VITAL SIGNS: 56, 12, 129 x 60, 93% GENERAL: Sitting edge of the bed, comfortable EYES: Pupils equal. Conjunctiva sari l. HEENT: External appearance of nose and ears normal, oral cavity grossly normal. NECK: JVD not raised; masses not palpable. Incision site healing well on the right side HEART: First and second heart sounds are normal; no edema. LUNGS: Respiratory rate normal; clear to auscultation. ABDOMEN: Soft, nontender, liver spleen not palpable, no masses palpable. PSYCH: Alert and oriented x3; mood and affect sari l. MUSCULOSKELETAL:No Clubbing/cyanosis;muscles-grossly intact NEUROLOGICAL: Speech is very slightly slow t. Slight weakness on the left side INVESTIGATIONS, reviewed in the clinical context: January 07, 2024: White count 7.9 hemoglobin 12.6 platelets 235 potassium 4.[address] angiogram of the brain: Right carotid bifurcation calcified plaque with 63 Kimberly stenosis. Noncalcified plaque at the left carotid bifurcation with 71% stenosis. MRI brain: Acute/subacute CVA involving the right thalamus and the right splenium of the corpus callosum. Petechial hemorrhage within the right thalamus. Some nonspecific white matter changes. Carotid Doppler: Severe greater than 70% proximal left ICA stenosis. Moderate 50-69% proximal right ICA stenosis. Assessment plan: -Right carotid artery stenosis, s/p angioplasty stent by Dr. Cheung on January 06, 2024. Aspirin. 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 Aspirin. Lipitor. Plavix. -Some left-sided paresis from recent stroke -Mild dysarthria from recent stroke -Severe greater than 70% proximal left ICA stenosis, moderate 50-6 9% proximal right ICA stenosis.: On carotid Doppler Patient does follow-up with Dr. Cheung outpatient Patient is due for surgery on the left side down the road -Essential hypertension,, presurgery Amlodipine Zestril has been held off as blood pressure was running low -Post surgical hypotension, likely from carotid sensitivity from carotid surgery Patient currently on phenylephrine drip. Oral Sudafed 60 mg every 6 bilateral above knee GARCIA stockings to help with blood pressure pressure -Hypothyroid Synthroid 88 mcg a day -Hypercholesterolemia Lipitor 40 mg nightly -Primary osteoarthritis Pain medication as needed -Full code Blood pressure monitoring at home discussed. Blood pressure medications held off. Follow-up parameters discussed both with the patient and daughter and the nurse. Thank you Dr. Cheung Past Medical History Past Medical History: CVA/TIA, Hyperlipidemia, Hypertension, Syncope, Thyroid Disorder, Vascular Disorder Additional Past Medical History / Comment(s): Hypothyroid, diverticular disease, benign colon polyps, bilateral tinnitis, bilateral varicosities per pt. cva/tia 11/2023with stroke passsed out briefly History of Any Multi-Drug Resistant Organisms: None Reported Past Surgical History: Section, Tubal Ligation Additional Past Surgical History / Comment(s): Colonoscopies/benign polypectomies. Past Anesthesia/Blood Transfusion Reactions: Motion Sickness, Postoperative Nausea & Vomiting (PONV) Smoking Status: Never smoker
== END 2024-01-08 12:14 | disposition home or self-care (01) | DRG 35 ==
LOC: 2ORMAIN 06:04 → 2SICU 11:21
PROVIDERS: ADMIT Surgery; ATTEND Surgery
PROC: X2AH336 Cerebral Embolic Filtration, Extracorporeal Flow Reversal Circuit from Right Common Carotid Artery, Percutaneous Approach, New Technology Group 6 (ICD-10-PCS; 2024-01-06)
PROC: 037K3DZ Dilation of Right Internal Carotid Artery with Intraluminal Device, Percutaneous Approach (ICD-10-PCS; principal; 2024-01-06 07:30)
DX: I65.23 Occlusion and stenosis of bilateral carotid arteries (principal); I69.354 Hemiplegia and hemiparesis following cerebral infarction affecting left non-dominant side; I69.322 Dysarthria following cerebral infarction; E03.9 Hypothyroidism, unspecified; I10 Essential (primary) hypertension; H93.13 Tinnitus, bilateral; E78.00 Pure hypercholesterolemia, unspecified; M19.91 Primary osteoarthritis, unspecified site; Z79.02 Long term (current) use of antithrombotics/antiplatelets; Z79.82 Long term (current) use of aspirin; Z79.890 Hormone replacement therapy; Z79.899 Other long term (current) drug therapy; Z98.41 Cataract extraction status, right eye
CPT/HCPCS: 37215; 80048; 85025; 86850; 86900; 86901

== ENCOUNTER 2024-05-04 07:16 | Inpatient (IN) | payer MEDICARE ==
[2024-04-30 12:21] VITALS: BMI 31.3
[~2024-05-04 07:16] MED LIST changes: -ALPRAZolam 0.25 MG TAB PO PRN; -ALPRAZolam 0.5 MG TAB PO PRN; +ASPIRIN 81 MG PO PRN; +CLOPIDOGREL 75 MG TAB PO PRN; +HYDROmorphone 0.5 MG/0.5 ML SYRINGE IVP PRN; +LIDOCAINE 1% (10MG/ML) FOR IV START INTRADERMA PRN
[2024-05-04] MEDS: SODIUM CHLORIDE 0.9% 1,000 ML in EMPTY BAG 1 BAG IV ONE (07:53)
[2024-05-04 08:02] LABS: Basophils # (A) 0.1 k/uL (0-0.2); Basophils % (A) 1 %; Eosinophils # (A) 0.3 k/uL (0-0.7); Eosinophils % (A) 3 %; HCT 49.7 % (34.0-46.0); Hypochromasia Slight; Lymphocytes # (A) 1.6 k/uL (1.0-4.8); Lymphocytes % (A) 21 %; MCHC 30.2 g/dL (31.0-37.0); MCV 92.6 fL (80.0-100.0); Monocytes # (A) 0.5 k/uL (0-1.0); Monocytes % (A) 6 %; Neutrophils # (A) 5.1 k/uL (1.3-7.7); Neutrophils % (A) 66 %; Platelet Count 334 k/uL (150-450); RBC 5.37 m/uL (3.80-5.40); RDW 13.5 % (11.5-15.5); WBC 7.7 k/uL (3.8-10.6)
[2024-05-04] MEDS: IV FLUID CONTINUATION 1,000 ML IV ONE ×3 (08:06→14:15)
[2024-05-04 08:18] LABS: African American GFR (CKD) >90 (>60 ml/min/1.73 sqM); Anion Gap 11 mmol/L; Blood Urea Nitrogen 11 mg/dL (7-17); Calcium 9.5 mg/dL (8.4-10.2); Carbon Dioxide 28 mmol/L (22-30); Chloride 103 mmol/L (98-107); Glucose 113 mg/dL (74-99); Non-African American GFR(CKD) 86 (>60 ml/min/1.73 sqM); Potassium 3.9 mmol/L (3.5-5.1); Sodium 142 mmol/L (137-145)
[2024-05-04] MEDS ORDERED: RX INFO: IV CONTRAST WAS GIVEN 1 EACH MISC MISCELLANE PRN (09:00)
[2024-05-04] MEDS ORDERED: PROTAMINE SULFATE 10 MG/ML 5 ML VIAL ONE (09:42)
[2024-05-04] MEDS ORDERED: GLYCOPYRROLATE 0.2 MG/ML 2 ML VIAL ONE (09:42)
[2024-05-04] MEDS ORDERED: HEPARIN SODIUM,PORCINE 10,000 UNIT/ML 1 ML VIAL ONE (09:42)
[2024-05-04] MEDS ORDERED: fentaNYL (PF) 50 MCG/ML 2 ML AMP ONE (09:42)
[2024-05-04] MEDS ORDERED: WATER FOR INJECTION, STERILE 10 ML VIAL IV ONE (09:42)
[2024-05-04] MEDS ORDERED: DEXMEDETOMIDINE/0.9% NACL(PMX) 400 MCG/100 ML IV ONE (09:42)
[2024-05-04] MEDS ORDERED: NITROGLYCERIN-D5W PMX 50 MG/250 ML BOTTLE IV ONE (09:42)
--- NOTE | 2024-05-04 10:10 | P.ANPRN ---
Procedure Note - Anesthesia - Invasive Line Left Arterial Line Time Out Performed: Yes ([id number]) Date of Procedure: 05/04/24 Time of Procedure: 08:13 Location of Patient: CVL Preparation: Sterile Prep, Sterile Dressing Arterial Line Location: Radial (Right) Ultrasound Used: No Purpose - Visualization and Identification of Vasculature: No Needle Guage: 20-gauge Image Stored and Saved: No Narrative: Invasive line placement per sterile protocol utilized. Sterile protocol. Left radial art line 20-gauge x 1 attempt. Local used at site. Lumen blood and flushed. Secured and dressed
[2024-05-04] MEDS: LIDOCAINE 1% INJ 10MG/ML (20 ML MDV) SQ ONE (10:21)
[2024-05-04] MEDS: ceFAZolin 1,000 MG in SODIUM CHLORIDE 0.9% 1,000 ML IRRIGATION ONE (10:26)
[2024-05-04] MEDS: SODIUM CHLORIDE 0.9% 500 ML 500 ML with HEPARIN SODIUM,PORCINE (1 ML) 5,000 UNIT IV ONE (10:26)
--- NOTE | 2024-05-04 11:15 | P.OP ---
Date of Procedure: 05/04/24 Preoperative Diagnosis: Left ICA stenosis asymptomatic greater than 80% Postoperative Diagnosis: Same Procedure(s) Performed: Left transcarotid artery revascularization and internal carotid artery stenting Ultrasound-guided left common femoral vein central venous catheter placement Anesthesia: MAC Surgeon: Justus Cheung Senior Physical Therapist #1: Good Richardson Estimated Blood Loss (ml): 10 Pathology: none sent Condition: stable Disposition: PACU Indications for Procedure: 79-year-old female with history of symptomatic right carotid artery stenosis who underwent right sided TCAR last month presented back to the office for evaluation and found to have severe stenosis of the left internal carotid artery as well which was greater than 80% seen on CT scan. She presents today for left TCAR. Description of Procedure: After written and informed consent was obtained from the patient and all risks, benefits and complications were described. The patient was brought to the operating suite and laid in a supine position. The neck and groin were prepped and the patient was sterilely draped. A transverse 2-4 cm incision was made between the sternal and clavicular heads of the sternocleidomastoid muscle, below the omohyoid. Following longitudinal division of the carotid sheath the jugular vein was partially dissected and retracted. Once 3 cm of common carotid artery (CCA) were isolated, umbilical tape was placed around the proximal 1/3 of the CCA under direct vision. A 5.0 polypropylene suture was pre-placed in the anterior wall of the CCA, in a purse-string stitch, close to the clavicle to facilitate hemostasis upon removal of the arterial sheath at completion of the TCAR procedure. The left common femoral vein was accessed under ultrasound guidance, using standard Seldinger and micropuncture access technique. The Venou s Return Sheath was advanced into the common femoral vein over the 0.035 wire provided. Blood was aspirated from the flow line followed by flushing of the Venous Sheath with heparinized saline. The Venous Sheath was secured to the patient's skin with suture to maintain optimal position in the vessel. Heparin was given to obtain a therapeutic activated clotting time >250 seconds prior to arterial access. A 4-Somali non-stiffened micropuncture set was used, puncturing the artery with the 21G needle through the pre-placed stitch while holding gentle traction on the umbilical tape to stabilize and centralize the CCA within the incision. Careful attention was paid to the change in CCA shape when using the umbilical tape to control or lift the artery. The micropuncture wire was then advanced 3-4 cm into the CCA and, the 21G needle was removed. The micropuncture sheath was advanced 2-3 cm into the CCA and the wire and dilator were removed. Pulsatile backflow indicated correct positioning. The provided 0.035" J-tipped guidewire was inserted as close as possible to the bifurcation without engaging the lesion. After micropuncture sheath removal, the Transcarotid Arterial Sheath was advanced to the 2.5cm marker and the 0.035 wire and dilator were then removed. Arterial Sheath position was assessed under fluoroscopy in two projections to ensure that the sheath tip was oriented coaxially in the CCA. The Arterial Sheath was sutured to the patient with gentle forward tension. Blood was slowly aspirated followed by flushing with heparinized saline. Traction applied to the CCA previously to facilitate access was gently released. The Flow Controller was connected to the Transcarotid Arterial Sheath, prepared by passively allowing a column of arterial blood to fill the line and connected to the Venous Return Sheath. CCA inflow was occluded proximal to the arteriotomy with a vascular clamp to achieve active flow reversal. To confirm flow reversal, a saline bolus was delivered into the venous flow line on both High and Low flow settings of the Flow Controller. Angiograms were performed with slow injections of a small amount of contrast filling just past the lesion to minimize antegrade transmission of micro-bubbles. Prior to lesion manipulation, heart rate (60bpm) and systolic BP (140-160mmHg) were managed upwards to optimize flow reversal and procedural neuroprotection. The le ari was crossed with an 0.014 guidewire, pre-dilatation with a 6x30mm balloon was performed followed by primary stenting with the ENROUTE Transcarotid 9x30mm stent. Post dilatation was performed. At TCAR case completion, antegrade flow was restored. The Transcarotid Arterial Sheath was removed and the pre-closure suture was tied. The Venous Return Sheath was removed and hemostasis was achieve d with brief manual compression. The patient tolerated the procedure well and was moving all four extremities to command and then sent to PACU for recovery.
[2024-05-04] MEDS: THROMBIN (BOVINE) 5,000 UNIT VIAL TOPICAL ONE (11:21)
--- NOTE | 2024-05-04 11:45 | IR ---
EXAMINATION TYPE: IR stent intravas non coronary DATE OF EXAM: 05/04/2024 11:26 AM COMPARISON: Pre Operative Images if available both CT/MRI or plain film CLINICAL INDICATION: Female, 79 years old with history of Lt carotid stenosis, 4.9m/0.054DAP, Lt Andujar tid suture lt g; TECHNIQUE: IR stent intravas non coronary, multiple fluoroscopic images provided for procedure. DAP: 17.6 mGym2 Gycm2 uGym2 cGycm2 or equivalent. FINDINGS: IMPRESSION: 1. Report was generated for administrative purposes only. 2. Please see the operative/procedural note for further details. [facility], , 05/04/2024 11:43 AM
[2024-05-04] MEDS ORDERED: ACETAMINOPHEN TAB 500 MG TAB PO PRN (13:08)
[2024-05-04] MEDS: PSEUDOEPHEDRINE 30 MG TAB PO STA (13:14)
[2024-05-04] MEDS ORDERED: ATROPINE SULFATE 0.1 MG/ML 10ML SYRINGE IV PRN (14:08)
[2024-05-04] MEDS ORDERED: HYDROcodone/APAP 5-325MG 1 EACH TAB PO PRN (14:08)
[2024-05-04] MEDS ORDERED: MAG HYDROX/AL HYDROX/SIMETH 30 ML CUP PO PRN (14:08)
[2024-05-04] MEDS: LACTATED RINGERS 1,000 ML IV SCH (17:47)
[2024-05-04] MEDS: ceFAZolin 1,000 MG in SODIUM CHLORIDE 0.9% IRRIGATIO 1,000 ML IRRIGATION ONE (17:47)
[2024-05-04] MEDS: PSEUDOEPHEDRINE 30 MG TAB PO SCH (18:24)
[2024-05-04] MEDS: SODIUM CHLORIDE 0.9% 1,000 ML IV SCH (18:26)
[2024-05-04] MEDS: ATORVASTATIN 40 MG TAB PO SCH (20:06)
[2024-05-04] MEDS ORDERED: ATORVASTATIN 40 MG TAB PO SCH (21:00)
--- NOTE | 2024-05-04 23:07 | P.CONS ---
History of Present Illness - Reason for Consult Consult date: 05/04/24 Medically managed Requesting physician: Justus Cheung - Chief Complaint Left carotid surgery - History of Present Illness This is a [id number] patient, follows with Dr. Wells. medical conditions include hypertension, hyperlipidemia, hypothyroid, diverticulosis, bilateral tinnitus, lower extremity varicosities. 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 Petechial hemorrhage within the right thalamus. Was seen by vascular surgery. In December 2023 underwent right carotid rev ascularization stent placement. Patient now has undergone left transcarotid artery revascularization at ICA stenting. Postprocedure he has dressing in place. He tolerated liquid diet. No stridor. No trouble swallowing. Review of systems: GEN.: Tired EYES: None HEENT: None NECK: Left neck incision RESPIRATORY: None CARDIOVASCULAR: None GASTROINTESTINAL: None GENITOURINARY: None MUSCULOSKELETAL: None LYMPHATICS: None HEMATOLOGICAL: None PSYCHIATRY: None NEUROLOGICAL: Speech is slightly slow. Some weakness on the left side Social history: Lives alone. No smoking or alcohol. Physical examination: VITAL SIGNS: 97.4, 75, 16, 153 x 78, 97% room GENERAL: BMI 32.9, resting in bed EYES: Pupils equal. Conjunctiva sari l. HEENT: External appearance of nose and ears normal, oral cavity grossly normal. NECK: JVD not raised; masses not palpable. Dressing over the left side of the neck HEART: First and second heart sounds are normal; no edema. LUNGS: Respiratory rate normal; clear to auscultation. ABDOMEN: Soft, nontender, liver spleen not palpable, no masses palpable. PSYCH: Alert and oriented x3; mood and affect sari l. MUSCULOSKELETAL:No Clubbing/cyanosis;muscles-grossly intact NEUROLOGICAL: Speech is very slightly slow t, very mild left-sided weakness LYMPHATICS: No lymph nodes palpable in the axilla and neck INVESTIGATIONS, reviewed in the clinical context: May 04: White count 7.7 hemoglobin 15 platelets 334 potassium 3.9 [address] angiogram of the brain: Right carotid bifurcation calcified plaque with 63 Kimberly stenosis. Noncalcified plaque at the left carotid bifurcation with 71% stenosis. MRI brain: Acute/subacute CVA involving the right thalamus and the right splenium of the corpus callosum. Petechial hemorrhage within the right thalamus. Some nonspecific white matter changes. Carotid Doppler: Severe greater than 70% proximal left ICA stenosis. Moderate 50-69% proximal right ICA stenosis. Assessment plan: -Left t carotid artery stenosis, s/p angioplasty stent by Dr. Cheung Aspirin. 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 Aspirin. Lipitor. Plavix. -Some left-sided paresis from prior t stroke Very slight dysarthria from prior stroke -Severe greater than 70% proximal left ICA stenosis, moderate 50-6 9% proximal right ICA stenosis.: On carotid Doppler Patient does follow-up with Dr. Cheung outpatient Patient is due for surgery on the left side down the road -Essential hypertension, Follow blood pressure closely.. Received IV phenylephrine (and Sudafed. -Hypothyroid Synthroid 88 mcg a day -Hypercholesterolemia Lipitor 40 mg nightly -Primary osteoarthritis Pain medication as needed -Full code Discussed with the patient. Questions answered Thank you Dr. Cheung Past Medical History Past Medical History: CVA/TIA, Hyperlipidemia, Hypertension, Syncope, Thyroid Disorder, Vascular Disorder Additional Past Medical History / Comment(s): Hypothyroid, diverticular disease, benign colon polyps, bilateral tinnitis, bilateral varicosities per pt. cva 12/10/2023 with stroke passed out briefly-no residual,uses walker at times History of Any Multi-Drug Resistant Organisms: None Reported Past Surgical History: Section, Tubal Ligation Additional Past Surgical History / Comment(s): Colonoscopies/benign polypectomies,Rt TCAR Past Anesthesia/Blood Transfusion Reactions: Motion Sickness, Postoperative Nausea & Vomiting (PONV) Smoking Status: Never smoker - Past Family History Mother Family Medical History: Cancer, CVA/TIA Additional Family Medical History / Comment(s): Mother had skin and esophageal cancer. She at the age of 86yrs. Father Additional Family Medical History / Comment(s): Father had bradycardia and of bradycardia/leg edema at the age of 84yrs. Medications and Allergies Home Medications Medication Instructions Recorded Confirmed Type Levothyroxine Sodium [Synthroid] 88 mcg PO DAILY 06/07/15 04/30/24 History Biotin [Biotin Disolve] 10,000 mcg PO DAILY 05/27/20 04/30/24 History Doxycycline Hyclate 50 mg PO DAILY 05/27/20 04/30/24 History Niacinamide 500 mg PO DAILY 05/27/20 04/30/24 History Acetaminophen Tab [Tylenol] 500 mg PO Q6HR PRN 12/10/23 04/30/24 History Ergocalciferol (Vitamin D2) 1,250 mcg PO TU 12/10/23 04/30/24 History [Drisdol (50,000 Iu)] Aspirin 81 mg PO DAILY 30 Days #30 tab 12/13/23 04/30/24 Rx Atorvastatin [Lipitor] 40 mg PO HS 30 Days #30 tab 12/13/23 04/30/24 Rx Clopidogrel [Plavix] 75 mg PO DAILY 30 Days #30 tab 12/13/23 04/30/24 Rx Allergies Allergy/AdvReac Type Severity Reaction Status Date / Time No Known Allergies Allergy Verified 05/04/24 07:42 Physical Exam Vitals: Vital Signs Temp Pulse Pulse Pulse Pulse Resp BP 05/04/24 20:03 97.4 F L 75 62 16 05/04/24 17:53 62 17 05/04/24 17:41 58 L 16 05/04/24 16:53 60 16 05/04/24 15:53 54 L 16 05/04/24 15:23 62 16 05/04/24 14:53 16 05/04/24 14:38 16 05/04/24 14:23 77 16 05/04/24 14:05 58 L 16 05/04/24 13:50 56 L 18 05/04/24 13:35 69 17 05/04/24 13:20 77 16 05/04/24 13:05 66 16 05/04/24 12:50 65 16 05/04/24 12:35 58 L 16 05/04/24 12:20 52 L 16 05/04/24 12:04 81 15 05/04/24 11:49 84 16 05/04/24 11:34 97 F L 75 12 05/04/24 08:05 97.9 F 74 16 242/116 05/04/24 07:46 97.9 F 70 16 BP BP BP BP Pulse Ox 05/04/24 20:03 153/78 97 05/04/24 17:53 125/76 96 05/04/24 17:41 140/65 97 05/04/24 16:53 136/65 97 05/04/24 15:53 156/67 97 05/04/24 15:23 128/64 100 05/04/24 14:53 141/67 97 05/04/24 14:38 146/63 98 05/04/24 14:23 160/81 97 05/04/24 14:05 136/87 98 05/04/24 13:50 142/67 134/65 96 05/04/24 13:35 133/67 129/67 95 05/04/24 13:20 129/71 96 05/04/24 13:05 122/71 98 05/04/24 12:50 136/68 98 05/04/24 12:35 178/77 98 05/04/24 12:20 167/73 98 05/04/24 12:04 184/82 97 05/04/24 11:49 155/67 95 05/04/24 11:34 173/73 93 L 05/04/24 08:05 98 05/04/24 07:46 246/113 221/93 98 Intake and Output 05/04/24 05/04/24 05/04/24 06:59 14:59 22:59 Intake Total 1152 90 Output Total 500 300 Balance 652 -210 Intake: IV 1152 Oral 90 Output: Urine 500 300 Other: Voiding Method Toilet # Voids 1 Weight 84.3 kg Results CBC & Chem 7: 05/04/24 07:31 05/04/24 07:32 Labs: Abnormal Lab Results - Last 24 Hours (Table) 05/04/24 05/04/24 Range/Units 07:31 07:32 Hct 49.7 H (34.0-46.0) % MCHC 30.2 L (31.0-37.0) g/dL Glucose 113 H (74-99) mg/dL
[2024-05-05 05:14] VITALS: TEMP 97.7
[2024-05-05] MEDS: LEVOTHYROXINE 88 MCG TAB PO SCH (05:34)
[2024-05-05] MEDS: PHENYLEPHRINE 40 MG in SODIUM CHLORIDE 0.9% 250 ML IV SCH (05:49)
[2024-05-05] MEDS: ASPIRIN 81 MG PO SCH ×2 (07:36→09:17)
[2024-05-05 08:08] LABS: Basophils % (A) 0 %; Eosinophils # (A) 0.2 k/uL (0-0.7); Eosinophils % (A) 2 %; HCT 42.8 % (34.0-46.0); Hypochromasia Slight; Lymphocytes # (A) 1.2 k/uL (1.0-4.8); Lymphocytes % (A) 13 %; MCH 28.2 pg (25.0-35.0); MCHC 30.4 g/dL (31.0-37.0); Mean Platelet Volume 8.2; Monocytes # (A) 0.5 k/uL (0-1.0); Monocytes % (A) 6 %; Neutrophils # (A) 7.2 k/uL (1.3-7.7); Neutrophils % (A) 78 %; Platelet Count 275 k/uL (150-450); RDW 13.6 % (11.5-15.5); WBC 9.2 k/uL (3.8-10.6)
[2024-05-05 08:26] LABS: African American GFR (CKD) >90 (>60 ml/min/1.73 sqM); Anion Gap 8 mmol/L; Blood Urea Nitrogen 10 mg/dL (7-17); Calcium 9.1 mg/dL (8.4-10.2); Carbon Dioxide 24 mmol/L (22-30); Chloride 106 mmol/L (98-107); Glucose 109 mg/dL (74-99); Non-African American GFR(CKD) >90 (>60 ml/min/1.73 sqM); Sodium 138 mmol/L (137-145)
[2024-05-05] MEDS ORDERED: BIOTIN 10000 MCG PO SCH (09:00)
[2024-05-05] MEDS: NIACIN TR 500 MG CAPLET PO SCH (09:17)
[2024-05-05] MEDS: ERGOCALCIFEROL 1,250 MCG (50,000 IU) CAPSULE PO SCH (09:17)
[2024-05-05] MEDS: CLOPIDOGREL 75 MG TAB PO SCH (09:18)
[2024-05-05 09:32] VITALS: BP 151/68; PULSE 68; RESP 17
--- NOTE | 2024-05-05 10:50 | P.DS ---
Providers Date of admission: 05/04/24 07:16 Expected date of discharge: 05/05/24 Attending physician: Justus Cheung DO Consults: 05/04/24 14:27 Consult Physician Routine Consulting Provider: Mookie Verduzco Consult Reason/Comments: Medical management post left TCAR Do you want consulting provider notified?: Yes Consult Physician Urgent Consulting Provider: Trent Gary Consult Reason/Comments: new onset post TCAR PVC/PACs Do you want consulting provider notified?: Yes Primary care physician: [facility] Course: 79-year-old female with history of symptomatic right carotid artery stenosis who underwent right sided TCAR in December had been being followed by vascular surgery and patient was found to have severe stenosis of the left internal carotid artery as well which was greater than 80% on CT scan. Patient was scheduled yesterday for left transcarotid artery revascularization with stent. During patient's postoperative and recovery she reportedly had PACs, she was also initially started on Dyllan-Synephrine IV drip which was discontinued prior to leaving recovery. Patient was asymptomatic. She was admitted to the cardiac stepdown unit. Sudafed 60 mg every 6 hours was started to maintain systolic blood pressures between 120 and 160 mmHg. Patient's systolic pressures have been stable 120s to 150s. This morning she reports she is feeling well. Denies any pain in the left side of her neck. Denies any focal deficits. She is sitting up having breakfast with no difficulty swallowing. Denies any dizziness headaches, chest pain or shortness of breath. She is voiding without difficulty. She has been up and ambulating. Cardiology was consulted secondary to PACs which they have seen patient and cleared her for discharge. Exam General appearance: The patient is alert, oriented, appears in no acute distress. HET: Head is normocephalic and atraumatic. Pupils are equal and reactive. Neck: Supple. Left-sided neck incision well-approximated with ecchymosis, no swelling or hematoma noted. Heart: Regular. Lungs: Equal expansion, normal respiratory effort. Abdomen: Soft, nontender, nondistended. Extremities: Normal skin color and turgor. Left groin access site with dressing clean dry and intact without any surrounding swelling or hematoma. Neurological: No focal deficits. Strength and sensation are grossly intact. Assessment 1. Left ICA stenosis asymptomatic greater than 80% status post left transcarotid artery revascularization with stent 2. Postop arrhythmia, resolved 3. History of stroke status post right TCAR 4. History of hypertension 5. History of hyperlipidemia Plan 1. Encourage ambulation 2. May discontinue Sudafed every 6 hours 3. Cardiology was on consultation, patient cleared for discharge 4. Continue aspirin and Plavix, statin 5. Medical management per primary medical physician 6. Discharge instructions reviewed with patient 7. Patient cleared for discharge after lunch The impression and plan of care has been dictated as directed. Dr. Cheung I performed a history and examination of this patient, discussed the same with the dictator. I agree with the dictator's note ,documented as a scribe. Any additional findings or plans will be noted. Procedures: Left transcarotid artery revascularization and internal carotid artery stenting Ultrasound-guided left common femoral vein central venous catheter placement Patient Condition at Discharge: Stable Plan - Discharge Summary Discharge Rx Participant: No New Discharge Prescriptions: Continue Levothyroxine Sodium [Synthroid] 88 mcg PO DAILY Niacinamide 500 mg PO DAILY Doxycycline Hyclate 50 mg PO DAILY Biotin [Biotin Disolve] 10,000 mcg PO DAILY Ergocalciferol (Vitamin D2) [Drisdol (50,000 Iu)] 1,250 mcg PO TU Aspirin 81 mg PO DAILY 30 Days #30 tab Acetaminophen Tab [Tylenol] 500 mg PO Q6HR PRN PRN Reason: Pain Or Fever > 100.5 Atorvastatin [Lipitor] 40 mg PO HS 30 Days #30 tab Clopidogrel [Plavix] 75 mg PO DAILY 30 Days #30 tab Discharge Medication List Levothyroxine Sodium [Synthroid] 88 mcg PO DAILY 06/07/15 [History] Biotin [Biotin Disolve] 10,000 mcg PO DAILY 05/27/20 [History] Doxycycline Hyclate 50 mg PO DAILY 05/27/20 [History] Niacinamide 500 mg PO DAILY 05/27/20 [History] Acetaminophen Tab [Tylenol] 500 mg PO Q6HR PRN 12/10/23 [History] Ergocalciferol (Vitamin D2) [Drisdol (50,000 Iu)] 1,250 mcg PO TU 12/10/23 [History] Aspirin 81 mg PO DAILY 30 Days #30 tab 12/13/23 [Rx] Atorvastatin [Lipitor] 40 mg PO HS 30 Days #30 tab 12/13/23 [Rx] Clopidogrel [Plavix] 75 mg PO DAILY 30 Days #30 tab 12/13/23 [Rx] Follow up Appointment(s)/Referral(s): Justus Cheung DO [STAFF PHYSICIAN] - 05/19/24 9:30 am (FOLLOW UP APPOINTMENT MADE. ) Jax Wells DO [Primary Care Provider] - 1 Week Activity/Diet/Wound Care/Special Instructions: No strenuous activity or heavy lifting greater than 10 pounds. May shower tomorrow but no tub bathing or soaking. No driving until cleared by surgeon. Continue home medications. Watch incision site for infection including redness, drainage, or temperature greater than 100.4. If you notice he symptoms please call office Discharge Disposition: HOME SELF-CARE
--- NOTE | 2024-05-05 10:57 | P.CRDCN ---
History of Present Illness History of present illness: HISTORY OF PRESENT ILLNESS: This is a 79-year-old female with a past medical history significant for CVA, carotid stenosis, hypertension, hyperlipidemia, and hypothyroidism. Patient follows in the office with Dr. Fink. We have been asked to see the patient in consultation for PVC/PACs. Patient examined at the bedside. Patient is s/p left TCAR with Dr. Cheung. Postoperatively, the patient was noted to have occasional PACs and PVCs. Patient without complaints of chest pain, shortness of breath, palpitations, dizziness, or lightheadedness. Vital signs are stable. DIAGNOSTICS: - No EKG available at the time of this dictation. Telemetry tracings reviewed. - Laboratory data: WBC 9.2. Hemoglobin 13.0. Platelet count 275. Sodium 138. Potassium 4.0. BUN 10. Creatinine 0.52. - Current home cardiac medications include aspirin 81 mg daily, atorvastatin 40 mg at night, Plavix 75 mg daily. - Most recent echocardiogram obtained in November 2023 revealing normal LV size and systolic function, mild AR, minimal MR, mild TR. REVIEW OF SYSTEMS: At the time of my exam: CONSTITUTIONAL: Denies fever or chills. HEENT: Denies blurred vision, vision changes, or eye pain. Denies hemoptysis CARDIOVASCULAR: Denies chest pain. Denies orthopnea. Denies PND. Denies palpitations RESPIRATORY: Denies shortness of breath. GASTROINTESTINAL: Denies abdominal pain. Denies nausea or vomiting. HEMATOLOGIC: Denies bleeding disorders. GENITOURINARY: Denies any blood in urine. SKIN: Denies pruitis. Denies rash. PHYSICAL EXAM: VITAL SIGNS: Reviewed. GENERAL: Well-developed in no acute distress. HEENT: Head is normocephalic. Pupils are equal, round. Sclerae anicteric. Mucous membranes of the mouth are moist. Neck supple. No JVD or thyromegaly LUNGS: Respirations even and unlabored. Lungs essentially clear to auscultation bilaterally. HEART: Regular rate and rhythm. S1 and S2 heard. ABDOMEN: Soft. Nondistended. Nontender. EXTREMITIES: Normal range of motion. No clubbing or cyanosis. Peripheral pulses intact. No lower extremity edema NEUROLOGIC: Awake and alert. Oriented x 3. ASSESSMENT: Carotid stenosis status post left TCAR PACs/PVCs, asymptomatic History of CVA Hypertension Hyperlipidemia Hypothyroidism PLAN: Continue current cardiac medications No further inpatient recommendations from a cardiac standpoint Patient is cleared for discharge from a cardiac standpoint Nurse practitioner note has been reviewed by physician. Signing provider agrees with the documented findings, assessment, and plan of care documented by UPP[employer] STITCHER as a scribe. Past Medical History Past Medical History: CVA/TIA, Hyperlipidemia, Hypertension, Syncope, Thyroid Disorder, Vascular Disorder Additional Past Medical History / Comment(s): Hypothyroid, diverticular disease, benign colon polyps, bilateral tinnitis, bilateral varicosities per pt. cva 12/10/2023 with stroke passed out briefly-no residual,uses walker at times History of Any Multi-Drug Resistant Organisms: None Reported Past Surgical History: Section, Tubal Ligation Additional Past Surgical History / Comment(s): Colonoscopies/benign polypectomies,Rt TCAR Past Anesthesia/Blood Transfusion Reactions: Motion Sickness, Postoperative Nausea & Vomiting (PONV) Smoking Status: Never smoker - Past Family History Mother Family Medical History: Cancer, CVA/TIA Additional Family Medical History / Comment(s): Mother had skin and esophageal cancer. She at the age of 86yrs. Father Additional Family Medical History / Comment(s): Father had bradycardia and of bradycardia/leg edema at the age of 84yrs. Medications and Allergies Home Medications Medication Instructions Recorded Confirmed Type Levothyroxine Sodium [Synthroid] 88 mcg PO DAILY 06/07/15 04/30/24 History Biotin [Biotin Disolve] 10,000 mcg PO DAILY 05/27/20 04/30/24 History Doxycycline Hyclate 50 mg PO DAILY 05/27/20 04/30/24 History Niacinamide 500 mg PO DAILY 05/27/20 04/30/24 History Acetaminophen Tab [Tylenol] 500 mg PO Q6HR PRN 12/10/23 04/30/24 History Ergocalciferol (Vitamin D2) 1,250 mcg PO TU 12/10/23 04/30/24 History [Drisdol (50,000 Iu)] Aspirin 81 mg PO DAILY 30 Days #30 tab 12/13/23 04/30/24 Rx Atorvastatin [Lipitor] 40 mg PO HS 30 Days #30 tab 12/13/23 04/30/24 Rx Clopidogrel [Plavix] 75 mg PO DAILY 30 Days #30 tab 12/13/23 04/30/24 Rx Allergies Allergy/AdvReac Type Severity Reaction Status Date / Time No Known Allergies Allergy Verified 05/04/24 07:42 Physical Exam Vitals: Vital Signs Temp Pulse Pulse Resp BP BP Pulse Ox 05/05/24 08:35 97.7 F 68 17 151/68 99 05/05/24 05:34 131/65 05/05/24 04:52 97.7 F 60 16 163/75 97 05/05/24 01:24 60 62 16 05/04/24 23:22 97.6 F 60 16 120/74 96 05/04/24 20:03 97.4 F L 75 62 16 153/78 97 05/04/24 17:53 62 17 125/76 96 05/04/24 17:41 58 L 16 140/65 97 05/04/24 16:53 60 16 136/65 97 05/04/24 15:53 54 L 16 156/67 97 05/04/24 15:23 62 16 128/64 100 05/04/24 14:53 16 141/67 97 05/04/24 14:38 16 146/63 98 05/04/24 14:23 77 16 160/81 97 05/04/24 14:05 58 L 16 136/87 98 05/04/24 13:50 56 L 18 142/67 134/65 96 05/04/24 13:35 69 17 133/67 129/67 95 05/04/24 13:20 77 16 129/71 96 05/04/24 13:05 66 16 122/71 98 05/04/24 12:50 65 16 136/68 98 05/04/24 12:35 58 L 16 178/77 98 05/04/24 12:20 52 L 16 167/73 98 05/04/24 12:04 81 15 184/82 97 05/04/24 11:49 84 16 155/67 95 05/04/24 11:34 97 F L 75 12 173/73 93 L Intake and Output 05/04/24 05/05/24 05/05/24 22:59 06:59 14:59 Intake Total 90 Output Total 300 Balance -210 Intake: Oral 90 Output: Urine 300 Other: Voiding Method Toilet Toilet Toilet # Voids 1 1 Weight 83.7 kg Results 05/05/24 07:35 05/05/24 07:35 CBC 05/05/24 Range/Units 07:35 WBC 9.2 (3.8-10.6) k/uL RBC 4.60 (3.80-5.40) m/uL Hgb 13.0 (11.4-16.0) gm/dL Hct 42.8 (34.0-46.0) % Plt Count 275 (150-450) k/uL Comprehensive Metabolic Panel 05/05/24 Range/Units 07:35 Sodium 138 (137-145) mmol/L Potassium 4.0 (3.5-5.1) mmol/L Chloride 106 (98-107) mmol/L Carbon Dioxide 24 (22-30) mmol/L BUN 10 (7-17) mg/dL Creatinine 0.52 (0.52-1.04) mg/dL Glucose 109 H (74-99) mg/dL Calcium 9.1 (8.4-10.2) mg/dL Current Medications Generic Name Dose Route Start Last Admin Trade Name Freq PRN Reason Stop Dose Admin Acetaminophen 500 mg 05/04/24 13:08 Acetaminophen Tab 500 Mg Tab PO Q6HR PRN Mild Pain or Fever > 100.5 Hydrocodone Bitart/Acetaminophen 1 each 05/04/24 14:08 Hydrocodone/Apap 5-325mg 1 Each Tab PO Q4HR PRN Moderate to Severe Pain (4-10) Al Hydroxide/Mg Hydroxide 30 ml 05/04/24 14:08 Mag Hydrox/Al Hydrox/Simeth 30 Ml Cup PO Q4HR PRN Heartburn Aspirin 81 mg 05/05/24 09:00 05/05/24 09:17 Aspirin 81 Mg PO 81 mg DAILY JOSELIN Administration Aspirin 81 mg 05/05/24 09:00 05/05/24 07:36 Aspirin 81 Mg PO Not Given DAILY JOSELIN Atorvastatin Calcium 40 mg 05/04/24 21:00 05/04/24 20:06 Atorvastatin 40 Mg Tab PO 40 mg HS JOSELIN Administration Atropine Sulfate 0.5 mg 05/04/24 14:08 Atropine Sulfate 0.1 Mg/Ml 10ml Syringe IV ONCE PRN Symptomatic Bradycardia Clopidogrel Bisulfate 75 mg 05/05/24 09:00 05/05/24 09:18 Clopidogrel 75 Mg Tab PO 75 mg DAILY JOSELIN Administration Ergocalciferol 1,250 mcg 05/05/24 09:00 05/05/24 09:17 Ergocalciferol 1,250 Mcg (50,000 Iu) Capsule PO 1,250 mcg TU JOSELIN Administration Lactated Ringer's 1,000 mls @ 20 mls/hr 05/04/24 06:33 05/05/24 05:50 Lactated Ringers IV Not Given .Q24H JOSELIN Phenylephrine HCl 40 mg/ 254 mls @ 16.059 mls/hr 05/04/24 12:00 05/05/24 05:51 Sodium Chloride IV Not Given .[id number] JOSELIN Protocol 0.5 MCG/KG/MIN Levothyroxine Sodium 88 mcg 05/05/24 06:30 05/05/24 05:34 Levothyroxine 88 Mcg Tab PO 88 mcg DAILY@0630 JOSELIN Administration Lidocaine HCl 0.1 ml 05/04/24 06:33 Lidocaine 1% (10mg/Ml) For Iv Start INTRADERMA PER PROTOCOL PRN IV Start Miscellaneous Information 1 each 05/04/24 09:00 Rx Info: Iv Contrast Was Given 1 Each Misc MISCELLANE 05/06/24 14:08 DAILY PRN Per Protocol Niacin 500 mg 05/05/24 09:00 05/05/24 09:17 Niacin Tr 500 Mg Caplet PO 500 mg DAILY JOSELIN Administration Nitroglycerin 0.4 mg 05/04/24 06:33 Nitroglycerin Sl Tabs 0.4 Mg Tab SUBLINGUAL Q5M PRN Chest Pain Pseudoephedrine HCl 60 mg 05/04/24 18:00 05/05/24 05:34 Pseudoephedrine 30 Mg Tab PO 60 mg Q6HR JOSELIN Administration Intake and Output 05/04/24 05/05/24 05/05/24 22:59 06:59 14:59 Intake Total 90 Output Total 300 Balance -210 Intake: Oral 90 Output: Urine 300 Other: Voiding Method Toilet Toilet Toilet # Voids 1 1 Weight 83.7 kg 05/05/24 07:35 05/05/24 07:35
--- NOTE | 2024-05-05 19:28 | P.PN ---
Progress Note - Text Progress Note Date: 05/05/24 - Chief Complaint Left carotid surgery - History of Present Illness This is a [id number] patient, follows with Dr. Wells. medical conditions include hypertension, hyperlipidemia, hypothyroid, diverticulosis, bilateral tinnitus, lower extremity varicosities. 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 Petechial hemorrhage within the right thalamus. Was seen by vascular surgery. In December 2023 underwent right carotid revascularization stent placement. Patient now has undergone left transcarotid artery revascularization at [facility] stenting. Postprocedure he has dressing in place. He tolerated liquid diet. No stridor. No trouble swallowing. May 05: Doing well. Eating well. Swallowing well. No pain. No dizziness lightheadedness. No new symptoms. Ambulating. Social history: Lives alone. No smoking or alcohol. Physical examination: VITAL SIGNS: 97.7, 68, 17, 151 x 68, 99% room air GENERAL: Comfortable EYES: Pupils equal. Conjunctiva sari l. HEENT: External appearance of nose and ears normal, oral cavity grossly normal. Slight bruising incision site on the left NECK: JVD not raised; masses not palpable. Dressing over the left side of the neck HEART: First and second heart sounds are normal; no edema. LUNGS: Respiratory rate normal; clear to auscultation. ABDOMEN: Soft, nontender, liver spleen not palpable, no masses palpable. PSYCH: Alert and oriented x3; mood and affect sari l. MUSCULOSKELETAL:No Clubbing/cyanosis;muscles-grossly intact NEUROLOGICAL: Speech is very slightly slow t, very mild left-sided weakness INVESTIGATIONS, reviewed in the clinical context: May 05: White count 9.2 hemoglobin 13 platelets 275 potassium 4 creatinine 0.52 May 04: White count 7.7 hemoglobin 15 platelets 334 potassium 3.9 [address] angiogram of the brain: Right carotid bifurcation calcified plaque with 63 Kimberly stenosis. Noncalcified plaque at the left carotid bifurcation with 71% elise nosis. MRI brain: Acute/subacute CVA involving the right thalamus and the right splenium of the corpus callosum. Petechial hemorrhage within the right thalamus. Some nonspecific white matter changes. Carotid Doppler: Severe greater than 70% proximal left ICA stenosis. Moderate 50-69% proximal right ICA stenosis. Assessment plan: -Left t carotid artery stenosis, s/p angioplasty stent by Dr. Cheung Aspirin. 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 Aspirin. Lipitor. Plavix. -Some left-sided paresis from prior t stroke Very slight dysarthria from prior stroke -Severe greater than 70% proximal left ICA stenosis, moderate 50-6 9% proximal right ICA stenosis.: On carotid Doppler Patient does follow-up with Dr. Cheung outpatient Patient is due for surgery on the left side down the road -Essential hypertension, Follow blood pressure closely.. Received IV phenylephrine (and Sudafed. -Hypothyroid Synthroid 88 mcg a day -Hypercholesterolemia Lipitor 40 mg nightly -Primary osteoarthritis Pain medication as needed -Full code Discussed with the patient and daughter. Thank you Dr. Cheung Past Medical History Past Medical History: CVA/TIA, Hyperlipidemia, Hypertension, Syncope, Thyroid Disorder, Vascular Disorder Additional Past Medical History / Comment(s): Hypothyroid, diverticular disease, benign colon polyps, bilateral tinnitis, bilateral varicosities per pt. cva 12/10/2023 with stroke passed out briefly-no residual,uses walker at times History of Any Multi-Drug Resistant Organisms: None Reported Past Surgical History: Section, Tubal Ligation Additional Past Surgical History / Comment(s): Colonoscopies/benign polypectomies,Rt TCAR Past Anesthesia/Blood Transfusion Reactions: Motion Sickness, Postoperative Nausea & Vomiting (PONV) Smoking Status: Never smoker
== END 2024-05-05 11:50 | disposition home or self-care (01) | DRG 35 ==
LOC: 2ORMAIN 07:16 → 3SCARD 16:54
PROVIDERS: ADMIT Surgery; ATTEND Surgery
PROC: 037L3DZ Dilation of Left Internal Carotid Artery with Intraluminal Device, Percutaneous Approach (ICD-10-PCS; principal; 2024-05-04 09:00)
DX: I65.22 Occlusion and stenosis of left carotid artery (principal); I69.354 Hemiplegia and hemiparesis following cerebral infarction affecting left non-dominant side; I69.322 Dysarthria following cerebral infarction; I10 Essential (primary) hypertension; E03.9 Hypothyroidism, unspecified; Z95.828 Presence of other vascular implants and grafts; E78.5 Hyperlipidemia, unspecified; I49.3 Ventricular premature depolarization; I49.1 Atrial premature depolarization; E78.00 Pure hypercholesterolemia, unspecified; M19.91 Primary osteoarthritis, unspecified site; Z79.890 Hormone replacement therapy; Z79.82 Long term (current) use of aspirin; Z79.02 Long term (current) use of antithrombotics/antiplatelets; Z79.899 Other long term (current) drug therapy
CPT/HCPCS: 80048; 85025; 86850; 86900; 86901

== ENCOUNTER → 2024-06-11 | Outpatient (CLI) | payer MEDICARE ==
--- NOTE | 2024-06-12 23:24 | CT ---
EXAMINATION TYPE: CT chest wo con DATE OF EXAM: 06/11/2024 5:10 PM COMPARISON: 12/10/2023 CLINICAL INDICATION: Female, 79 years old with history of R91.8 OTHER NONSPECIFIC ABNORMAL FINDING OF LUNG F, NONSPECIFIC ABNORMAL FINDING OF LUNG. Recent carotid sx. TECHNIQUE: Axial images were obtained at 5 mm thick sections. Reconstructed images are reviewed on Leaky computer in the coronal plane. Contrast used: mL of , (none if empty) Oral contrast used: (none if empty) CT DLP: 592 mGycm, Automated exposure control for dose reduction was used. FINDINGS: Thyroid is out of the [id number]. There is a 0.5 cm peripheral nodule left lung base. Series 4 image 37. A 0.8 cm nodule is cortical in the right lateral lung base sulcus, series 4 image 49. A previous 7 mm nodule at the left base is no t identified. No enlarging nodules identified. No enlarged mediastinal or hilar adenopathy is evident. The ascending aorta diameter at the level o f the main pulmonary artery is 3.7 cm. The main pulmonary artery diameter at the bifurcation is 2.7 cm. Moderate coronary artery calcifications present. Limited CT sections are obtained through the upper abdomen. Abdomen is essentially unremarkable. IMPRESSION: 1. No acute pulmonary process. 2. Stable appearing pulmonary nodules. No new nodules identified. [facility], , 06/12/2024 11:21 PM
== END | disposition home or self-care (01) ==
LOC: RADCTMAIN 15:53
PROVIDERS: ATTEND Family Medicine
DX: R91.8 Other nonspecific abnormal finding of lung field (principal)
CPT/HCPCS: 71250